=== PATIENT | female | born 1940 | race African-American/Black ===

== ENCOUNTER 2019-12-16 15:56 | Outpatient (CLI) | payer MEDICARE, SELFPAY ==
--- NOTE | ~2019-12-16 | US_ITS ---
EXAMINATION: US thyroid DATE: 12/16/2019 16:38 INDICATION: Thyroid nodule TECHNIQUE: Multiple ultrasound images of the thyroid were obtained. COMPARISON: None. FINDINGS: The right thyroid lobe measures 2.7 x 1.6 x 1.6 cm. The left thyroid lobe measures 3.3 x 1.6 x 1.0 c m. 4 mm wider than tall solid hypoechoic nodule with smooth margins and no echogenic foci (TI-RADS 4 , moderately suspicious , FNA if >=1.5 cm, annual followup is >1 cm) in the left thyroid lobe. Hetero geneous wider than tall predominantly solid isoechoic solid nodule with smooth margins and without ec hogenic foci at the (TI-RADS 3, mildly suspicious , FNA if >=2.5 cm, annual followup is >1.5 cm) junc tion of the right thyroid lobe and isthmus which measures 2.5 x 1.3 x 2.5 cm. There is normal echotex ture, echogenicity and vascular flow throughout the remainder of the thyroid gland. IMPRESSION: 1. 2.5 cm TI RADS 3 nodule in the right thyroid lobe for which ultrasound-guided biopsy would be albina mmended. Reviewed, dictated and finalized at location A. IMPRESSION: 1. 2.5 cm TI RADS 3 nodule in the right thyroid lobe for which ultrasound-guide d biopsy would be recommended.
== END 2019-12-16 15:57 | disposition home or self-care (01) ==
PROVIDERS: Visit Provider Otolaryngology
DX: E04.1 Nontoxic single thyroid nodule (principal)
CPT/HCPCS: 76536

== ENCOUNTER 2020-01-10 18:03 | Emergency (ER) | payer MEDICARE, SELFPAY ==
--- NOTE | ~2020-01-10 | CT_ITS ---
EXAMINATION: CT brain wo con DATE: 01/10/2020 18:59 INDICATION: Left face tingling. TECHNIQUE: Computed tomography (CT) of the head was performed without intravenous contrast. The mA wa s adjusted according to patient size. Iterative reconstruction technique was employed. The dose-lengt h product was 605.33 mGy-cm. COMPARISON: None FINDINGS: There is no intracranial hemorrhage, acute infarction, or abnormal intracranial mass lesion . There are scattered areas of low attenuation in the cerebral white matter. The ventricles are idalia l in size. 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 The mastoid air cells are normal. IMPRESSION: 1. Mild nonspecific cerebral white matter disease, which likely represents chronic small vessel ische catracho disease. Reviewed, dictated and finalized at location A. IMPRESSION: 1. 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
[2020-01-10 18:13] VITALS: BP 154/76; PULSE 98; RESP 18; TEMP 36.9; O2SAT 100
[2020-01-10 18:43] VITALS: BP 146/79; PULSE 95; RESP 20; O2SAT 100
--- NOTE | 2020-01-10 18:46 | ED.NEUROSD ---
HPI - Neuro Symptoms/Deficit General Chief Complaint: Neuro Symptoms/Deficit Stated Complaint: MY FACE LOOKS LIKE IM HAVING A STROKE Time Seen by Provider: 01/10/20 18:35 History of Present Illness HPI Narrative: Patient presents to the ED for facial tingling on the left since last night. When she first noticed that she thought there was some swelling over on the left cheek. She took an extra aspirin and an extra blood pressure pill. Her pressure was 165/99 at the time. She had a little bit of a headache. In the morning she had a little redness on the medial left lower eyelid. She thought it might be a stye, causing the swelling in her left cheek. She called a family member and had them look to see if it was asymmetric. He thought she had swelling. 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 She had no weakness, confusion, slurred speech, her or change in vision with the tingling of the left cheek. She has never had a stroke. She does have hypertension. 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 She does not smoke cigarettes, drink alcohol, or smoke marijuana. She has not been sick lately. She drove herself here. Onset (ago): day(s) Location: left face Related Data Home Medications Medication Instructions Recorded Confirmed timolol maleate 0.5 % eye drops 1 drop EACH EYE Q12H 05/14/19 11/14/19 tizanidine 2 mg capsule 2 mg PO TID PRN 05/14/19 11/14/19 amlodipine 10 mg PO DAILY 01/10/20 Allergies Allergy/AdvReac Type Severity Reaction Status Date / Time codeine Allergy Unknown Unknown Verified 01/10/20 18:43 Review of Systems Review of Systems: Narrative: CONSTITUTIONAL: Denies fever, chills, or sweats. EYES: Denies visual changes, redness, or discharge. ENT: Denies rhinorrhea, congestion, sore throat, or otalgia. CARDIOVASCULAR: Denies chest pain, palpitations, or edema. RESPIRATORY: Denies cough or dyspnea. GASTROINTESTINAL: Denies abdominal pain, nausea, vomiting, or diarrhea. GENITOURINARY: Denies dysuria or hematuria. SKIN: Denies rash or itching. MUSCULOSKELETAL: Denies back pain, joint pain, or myalgia. Chronic neck pain from C5-C6 lesion. NEUROLOGIC: Denies headache, numbness, or weakness. Just the tingling in the left cheek. All systems reviewed & are unremarkable except as noted in HPI and below PMFSH Past Medical History Medical History (Updated 01/10/20 @ 18:50 by Carolee Temple MD) Chest pain BARNETT (dyspnea on exertion) Dyslipidemia Essential hypertension Preop cardiovascular exam Surgical History Surgical History (Updated 01/10/20 @ 18:50 by Carolee Temple MD) H/O eye surgery H/O parotidectomy H/O tubal ligation H/O: hysterectomy History of left hip replacement History of right knee joint replacement Hx of tonsillectomy Social History Social History (Updated 01/10/20 @ 18:50 by Carolee Temple MD) Smoking status: Never smoker Alcohol intake: never Substance use: never Gender identity (if verbalized by the patient): Female Exam Narrative: Exam Narrative: GENERAL: Well-appearing, well-nourished, and in no acute distress. HEAD: Normocephalic, atraumatic. Facial asymmetry but no tenderness or redness, or weakness. Smile is symmetric. EYES: PERRLA and EOMI. right eye is glass and has exotropia. ENT: Nares clear, no rhinorrhea or epistaxis. Mucous membranes moist. NECK: Supple. CHEST: Clear to auscultation. No respiratory distress. HEART: Regular rate and rhythm. No murmur heard. Normal peripheral pulses. ABDOMEN: Soft, nontender, nondistended, normal active bowel sounds. EXTREMITIES: Normal range of motion. No edema. SKIN: Warm, dry, no rash. NEURO: No focal deficits. Alert and oriented x3. PSYCH: Normal mood and affect. Course Reevaluation(s) Reevaluation #1: Labs and CAT scan results with the patient. She is relieved not to have had a stroke. She would like pill for
[2020-01-10 19:31] LABS: Basophils Percent Auto 0.7 % (0.2-1.2); Eosinophils Absolute Auto 0.1 K/mm3 (0-0.3); Eosinophils Percent Auto 2.4 % (0-4.4); Hematocrit 43.1 % (37.0-47.0); Hemoglobin 14.7 g/dL (12.0-15.0); Immature Granulocyte Absolute 0.01 K/mm3 (0.00-0.031); Immature Granulocyte Percent A 0.2 % (0-0.5); Lymphocytes Absolute Auto 2.02 K/mm3 (0.9-3.2); Mean Corpuscular HGB Conc 34.1 g/dl (32-36); Mean Corpuscular Hemoglobin 30.1 pg (26-34); Mean Corpuscular Volume 88.1 fl (80-100); Mean Platelet Volume 9.3 fl (7.4-10.4); Monocytes Absolute Auto 0.5 K/mm3 (0.1-0.6); Monocytes Percent Auto 9.7 % (2.6-8.5); Neutrophils Absolute Auto 2.7 K/mm3 (1.3-6.7); Platelet Count Result 218 k/mm3 (150-375); Red Blood Count 4.89 M/mm3 (4.2-5.4); Red Cell Distribution Width 13.6 % (11.5-14.5); White Blood Count 5.5 K/mm3 (4.5-10.0)
[2020-01-10 19:41] LABS: Prothrombin Time 13.2 Seconds (11.1-14.7)
[2020-01-10 19:47] LABS: Alanine Aminotransferase 12 U/L (4-35); Albumin Level 4.2 g/dL (3.5-5.1); Alkaline Phosphatase 133 U/L (38-126); Aspartate Amino Transferase 21 U/L (14-36); Bilirubin,Total 0.3 mg/dL (0.2-1.3); Blood Urea Nitrogen 11 mg/dL (7-17); Calcium 9.3 mg/dL (8.4-10.2); Carbon Dioxide 25 mmol/L (22-30); Chloride 107 mmol/L (98-107); Estimated CRCL calculation 44 ml/min; Estimated Glomerular Filt Rate > 60; Glucose 102 mg/dL (65-105); Potassium 3.4 mmol/L (3.4-5.0); Sodium 138 mmol/L (137-145)
[2020-01-10] MEDS: ACETAMINOPHEN 325 MG TABLET 650 MG PO (20:29)
[2020-01-10 20:30] VITALS: BP 169/97; PULSE 96; RESP 16; O2SAT 100
[2020-01-10 21:01] VITALS: BP 169/97; PULSE 96; RESP 16; O2SAT 100
== END 2020-01-10 20:35 | disposition home or self-care (01) ==
PROVIDERS: Emergency Provider Emergency Medicine; PCP Emergency Medicine
DX: R20.2 Paresthesia of skin (principal); I10 Essential (primary) hypertension; Z96.642 Presence of left artificial hip joint; Z96.651 Presence of right artificial knee joint; E78.5 Hyperlipidemia, unspecified; R90.82 White matter disease, unspecified
CPT/HCPCS: 36415; 70450; 80053; 85025; 85610; 99284; A9270

== ENCOUNTER 2020-04-10 09:05 | Outpatient (CLI) | payer MEDICARE, SELFPAY ==
--- NOTE | ~2020-04-10 | US_ITS ---
EXAMINATION: US FNA w image guidance DATE: 04/10/2020 10:04 INDICATION: Thyroid nodule. TECHNIQUE: The procedure and its benefits, risks, and benefits were discussed with the patient. Risks specifical ly discussed included bleeding. The patient verbalized understanding of the risks and agreed to proce ed. The neck was prepped and draped in the usual sterile manner. 1% lidocaine was used for local ane sthesia. 5 passes were made with a 25G needle into the lesion. Appropriate needle location was docu mented with continuous sonographic guidance. There were no immediate complications. The patient unde rstood to call the ordering physician for results after a week and a half and verbalized that underst anding. FINDINGS: Grayscale ultrasound images demonstrate needles advanced into a 2.6 cm nodule in right thyroid isthmu s for biopsy. IMPRESSION: 1. Ultrasound-guided fine needle aspiration of a thyroid nodule. Reviewed, dictated and finalized at location A.
== END 2020-04-10 09:06 | disposition home or self-care (01) ==
PROVIDERS: PCP Emergency Medicine; Visit Provider Otolaryngology
DX: E04.1 Nontoxic single thyroid nodule (principal)
CPT/HCPCS: 10005; 88173; 88305

== ENCOUNTER 2022-07-27 07:20 | Outpatient (CLI) | payer MEDICARE, SELFPAY ==
--- NOTE | ~2022-07-27 | NM_ITS ---
EXAMINATION: NM damion stress w perfusion DATE: 07/27/2022 13:26 INDICATION: Chest pain. TECHNIQUE: Rest images were obtained following intravenous administration of 10 mCi Tc99m tetrofosmin (Myoview). The patient was infused intravenously with Lexiscan (regadenoson). Then, 31.7 mCi Tc99m t etrofosmin (Myoview) was administered intravenously, and stress images were obtained. Data was recons tructed into short axis and horizontal and vertical long axis SPECT images. Gated SPECT images were a lso obtained. COMPARISON: Myocardial perfusion imaging 07/07/17 FINDINGS: There is no definite reversible or fixed perfusion abnormality to suggest ischemia or infar ction. There is no segmental wall motion abnormality. Left ventricular ejection fraction measures > 70%. IMPRESSION: 1. No definite ischemia or infarct. 2. Normal left ventricular ejection fraction measuring >70%. Reviewed, dictated and finalized at location A. R SCRAPER
--- NOTE | 2022-07-27 11:00 | ECHO_ITS ---
Patient Info Name: Shania Mcleod Age: 82 years : 1940 Gender: Female Ht: 62 in Wt: 140 lbs BSA: 1.68 m2 HR: 78 bpm BP: 174 / 104 mmHg Technical Quality: Fair Exam Date: 07/27/2022 8:21 AM Exam Location: [facility] Pulmonary Patient Status: Outpatient Admit Date: 07/27/2022 Staff Ordering Physician: Titi Reynoso DO Homeland Security Program Specialist: Dmitriy Lockett RDCS, RT Attending Provider: Titi Reynoso DO Exam Type: CA echo doppler color flow Study Info Complete two-dimensional, color flow and Doppler transthoracic echocardiogram is performed. Strain analysis performed. Summary 1. Complete two-dimensional, color flow and Doppler transthoracic echocardiogram is performed. 2. Left ventricular chamber dimension is normal. 3. Left ventricular systolic function is normal, estimated at 60-65%. 4. There is mild concentric increased left ventricular wall thickness. 5. The left ventricular diastolic function is grade I diastolic dysfunction. 6. E/e' 16 is elevated. 7. Global longitudinal strain is normal at -18.8%. 8. There is moderate aortic valve sclerosis. 9. The mitral valve has moderately calcified annulus. Left Ventricle E/e' 16 is elevated. Global longitudinal strain is normal at -18.8%. Left ventricular chamber dimension is normal. Left ventricular systolic function is normal, estimated at 60-65%. There is mild concentric increased left ventricular wall thickness. The left ventricular diastolic function is grade I diastolic dysfunction. Right Ventricle Right ventricular systolic function is normal and with normal TAPSE 1.8 cm. Right ventricular chamber dimension is normal. Left Atria Left atrial chamber dimension is normal. Right Atria Right atrial chamber dimension is normal. Aortic Valve The aortic valve is trileaflet. There is moderate aortic valve sclerosis. There is no aortic valve stenosis. There is no aortic valve regurgitation. Pulmonic Valve There is no pulmonic regurgitation. Mitral Valve The mitral valve has moderately calcified annulus. There is no mitral valve stenosis. There is no mitral valve regurgitation. Tricuspid Valve There is no tricuspid valve regurgitation. Pericardium/Pleural There is no pericardial effusion. Inferior Vena Cava Normal inferior vena cava with >50% collapse upon inspiration consistent with normal right atrial pressure, 5 mmHg. Aorta The aortic root size at the sinus of Valsalva is normal. Left Ventricular Outflow Tract Name Value Normal LVOT Doppler LVOT Peak Gradient 4 mmHg LVOT Mean Gradient 2 mmHg LVOT VTI 23 cm LVOT VTI/AV VTI Ratio 0.9 Mitral Valve Name Value Normal MV Doppler MV Decel Lassen 280 cm/s2 MV PHT 91 ms MV Area (PHT) 2.4 cm2 4.0-5.0 MV Diastolic Function
--- NOTE | 2022-07-27 11:14 | EST_ITS ---
Patient Info Name: Shania Mcleod Age: 82 years : 1940 Gender: Female Ht: 62 in Wt: 140 lbs BSA: 1.68 m2 HR: 77 bpm BP: 169 / 71 mmHg Heart Rhythm: Sinus Rhythm Exam Date: 07/27/2022 9:54 AM Exam Location: [facility] Stress Patient Status: Outpatient Admit Date: 07/27/2022 Staff Ordering Physician: Titi Reynoso DO Attending Provider: Titi Reynoso DO Exercise Technologist: Nelida Aguilar CT Exercise Physician: Titi Reynoso DO Exam Type: CA stress damion w NM Study Info Indications R06.09 - Other forms of dyspnea A regadenoson stress test was performed. Summary 1. 1. Negative lexiscan stress test for ischemic ST changes by ECG criteria. 2. 2. Baseline hypertension. 3. 3. Nuclear scan to follow and will be reported separately. Please correlate with it. 4. 4. Patient informed of the above results. Protocol: Lexiscan Rest HR: 77 bpm Peak HR: 110 bpm Rest Sys BP: 169 mmHg Peak Sys BP: 199 mmHg Max Pred HR: 138 bpm % Max Pred HR: 80 % Target HR: 117 bpm Max RPP: 21,890 bpm*mmHg Termination Reason: Completed protocol Cardiac Symptoms: Lightheadedness, Shortness of breath Rest Paredes BP: 91 mmHg Peak Paredes BP: 81 mmHg Total Dose: 0.4 mg Resting ECG Sinus rhythm. Normal sinus rhythm - normal ECG. Stress ECG No ST changes. Arrhythmias None. Report Signatures
== END 2022-07-27 07:21 | disposition home or self-care (01) ==
LOC: ANHCARD 07:21
PROVIDERS: Visit Provider Internal Medicine Cardiovascular Disease
DX: R07.9 Chest pain, unspecified (principal); R06.09 Other forms of dyspnea; I10 Essential (primary) hypertension; I51.9 Heart disease, unspecified; I35.8 Other nonrheumatic aortic valve disorders; I34.81 Nonrheumatic mitral (valve) annulus calcification
CPT/HCPCS: 78452; 93017; 93306; A9502; J2785

== ENCOUNTER 2023-01-10 07:42 | Outpatient (CLI) | payer MEDICARE, SELFPAY ==
[2023-01-10 08:37] LABS: Alanine Aminotransferase 12 U/L (6-35); Alkaline Phosphatase 76 U/L (38-126); Anion Gap 5 mmol/L (8-16); Aspartate Amino Transferase 20 U/L (14-36); Bilirubin,Total 0.5 mg/dL (0.2-1.3); Blood Urea Nitrogen 11 mg/dL (7-17); Calcium 8.9 mg/dL (8.4-10.2); Carbon Dioxide 30 mmol/L (22-30); Chloride 106 mmol/L (98-107); Cholesterol 156 mg/dL (0-200); Estimated Glomerular Filt Rate > 60; Glucose 99 mg/dL (65-110); HDL Direct 45 mg/dL; Potassium 3.1 mmol/L (3.4-5.0); Sodium 141 mmol/L (137-145); Triglycerides 76 mg/dL (<150)
[2023-01-10 08:48] LABS: LDL Cholesterol Direct 82 mg/dL
== END 2023-01-10 07:43 | disposition home or self-care (01) ==
PROVIDERS: Visit Provider Internal Medicine Cardiovascular Disease
DX: E78.5 Hyperlipidemia, unspecified (principal)
CPT/HCPCS: 36415; 80053; 80061

== ENCOUNTER 2023-05-25 13:05 | Inpatient (IN) | payer MEDICARE, SELFPAY ==
[2023-05-25] VITALS (17 sets, daily range): BP systolic 133–175; BP diastolic 64–94; PULSE 70–95; RESP 13–20; TEMP 36.5–36.8; O2SAT 97–100; BMI 25.6
--- NOTE | ~2023-05-25 | XR_ITS ---
EXAMINATION: XR chest 1V portable DATE: 05/25/2023 14:30 INDICATION: Weakness. TECHNIQUE: A single frontal view of the chest was obtained. COMPARISON: Chest 2 views 08/28/2015 FINDINGS: There is no pneumonia, pleural effusion, or pneumothorax. The heart size is normal. IMPRESSION: 1. No acute cardiopulmonary disease. Reviewed, dictated and finalized at location A. RTMENTAL SHIPPING CLERK
--- NOTE | ~2023-05-25 | CT_ITS ---
EXAMINATION: CT abdomen pelvis w con DATE: 05/27/2023 17:58 INDICATION: Right colon mass. TECHNIQUE: Computed tomography (CT) of the abdomen and pelvis was performed with 100 cc Omnipaque 350 intravenous contrast. The dose-length product was 286.52 mGy-cm. Automated exposure control and iter ative reconstruction technique were employed. COMPARISON: None. FINDINGS: There is bibasilar atelectasis/scarring. Heart size normal. No significant pleural or peric ardial effusion. The liver, spleen, pancreas, adrenal glands and kidneys are unremarkable. Gallbladde r is present. There is significant irregular thickening of the cecum, suspicious for known malignancy . There is a left hip arthroplasty. There is osteoarthritis of the right hip. There is scoliosis. Sev ere lumbar spondylosis. IMPRESSION: 1. Significant irregular thickening of the cecum, suspicious for known colon cancer. No evidence for metastatic disease. 2: Bibasilar atelectasis/scarring. Reviewed, dictated and finalized at location A. ERY WORKER IMPRESSION: 1. Significant irregular thickening of the cecum, suspicious for known colon ca ncer. No evidence for metastatic disease. 2: Bibasilar atelectasis/scarring.
--- NOTE | ~2023-05-25 | CT_ITS ---
EXAMINATION: CT brain wo con DATE: 06/01/2023 15:24 INDICATION: Dizziness and weakness TECHNIQUE: Computed tomography (CT) of the head was performed without intravenous contrast. Sagittal and coronal reconstructions were performed. The mA was adjusted according to patient size. Iterative reconstruction technique was employed. The dose-length product was 605.33 mGy-cm. COMPARISON: head CT dated 01/10/2020 FINDINGS: No acute intracranial hemorrhage, acute infarction or abnormal extra axial fluid collection. There is mild scattered white matter hypoattenuation consistent with chronic small vessel ischemic disease. S ymmetric prominence of the sulci consistent with mild age-appropriate diffuse cerebral volume loss. V entricles are normal and symmetric. No mass/mass effect. Changes of bilateral intraocular lens replac ement. The orbits, paranasal sinuses and mastoid air cells are normal. IMPRESSION: 1. No acute intracranial process. 2. Age-related changes including mild diffuse volume loss and mild scattered white matter hypoattenua tion consistent with chronic small vessel ischemic disease. Reviewed, dictated and finalized at location A. [employer]GER IMPRESSION: 1. No acute intracranial process. 2. Age-related changes including mild diffuse volume loss and mild scattered wh ite matter hypoattenuation consistent with chronic small vessel ischemic diseas e.
--- NOTE | 2023-05-25 13:12 | ECG_ITS ---
Measurements Intervals [place] Rate: 74 P: 23 ID: [id number] QRS: 1 QRSD: 90 T: 18 QT: 375 QTc: 417 Interpretive Statements SINUS RHYTHM CONSIDER INFERIOR INFARCT, AGE INDETERMINATE BASELINE ARTIFACT- I, III, AVL, AVF ABNORMAL ECG NO PREVIOUS ECG AVAILABLE FOR COMPARISON Electronically Signed On 05-25-2023 14:30:35 SENIOR FINANCIAL by Titi Reynoso D.O.
[2023-05-25 13:21] LABS: Basophils Percent Auto 0.8 % (0.2-1.2); Eosinophils Absolute Auto 0.2 K/mm3 (0-0.3); Immature Granulocyte Absolute 0.01 K/mm3 (0.00-0.031); Immature Granulocyte Percent A 0.2 % (0-0.5); Lymphocytes Absolute Auto 1.77 K/mm3 (0.9-3.2); Lymphocytes Percent Auto 35.5 % (18.3-44.2); Mean Corpuscular HGB Conc 25.5 g/dl (32-36); Mean Corpuscular Hemoglobin 16.3 pg (26-34); Mean Corpuscular Volume 63.8 fl (80-100); Mean Platelet Volume 9.7 fl (7.4-10.4); Monocytes Absolute Auto 0.8 K/mm3 (0.1-0.6); Monocytes Percent Auto 15.1 % (2.6-8.5); Neutrophils Absolute Auto 2.3 K/mm3 (1.3-6.7); Neutrophils Percent Auto 45.4 % (45.5-73.1); Platelet Count Result 396 k/mm3 (150-375); Red Blood Count 3.26 M/mm3 (4.2-5.4); Red Cell Distribution Width 21.4 % (11.5-14.5)
[2023-05-25 13:30] LABS: Alanine Aminotransferase 10 U/L (6-35); Albumin Level 3.7 g/dL (3.5-5.1); Alkaline Phosphatase 66 U/L (38-126); Anion Gap 7 mmol/L (8-16); Aspartate Amino Transferase 28 U/L (14-36); Bilirubin,Total 0.5 mg/dL (0.2-1.3); Blood Urea Nitrogen 8 mg/dL (7-17); Carbon Dioxide 24 mmol/L (22-30); Chloride 108 mmol/L (98-107); Estimated CRCL calculation 35 ml/min; Estimated Glomerular Filt Rate > 60; Glucose 124 mg/dL (65-110); Potassium 3.6 mmol/L (3.4-5.0); Sodium 139 mmol/L (137-145)
[2023-05-25 13:36] LABS: Hematocrit 20.8 % (37.0-47.0)
[2023-05-25 13:40] LABS: Hemoglobin 5.3 g/dL (12.0-15.0)
[2023-05-25 13:45] LABS: Anisocytosis 1+ (NORMAL); Helmet Cells 1+ (NORMAL); Poikilocytosis 2+ (NORMAL)
[2023-05-25 13:46] LABS: Hypochromasia 3+ (NORMAL); Ovalocytes 1+ (NORMAL)
[2023-05-25 13:48] LABS: Schistocytes 2+ (NORMAL)
[2023-05-25 13:53] LABS: Target Cells 1+ (NORMAL)
[2023-05-25 14:36] LABS: INR 1.1; Partial Thromboplastin Time 21.6 SECONDS (22.3-36.8); Prothrombin Time 14.5 Seconds (11.1-14.7)
--- NOTE | 2023-05-25 14:57 | ED.DIZZY ---
HPI - Dizziness General Chief Complaint: Dizziness Stated Complaint: dizzy when woke up Time Seen by Provider: 05/25/23 13:52 Source: patient, EMS, RN notes reviewed and old records reviewed Mode of arrival: EMS Limitations: no limitations History of Present Illness HPI Narrative: This is an 83 year old female with history of chronic vertigo, hypertension who presents for evaluation of multiple complaints. Patient states she felt like she was having stroke, seizure and heart attack . She reports prior to arrival she developed sudden only of chest tightness, tingling all over and head fogginess. She also reports having lethargy at that time. This last 1 hour and her symptoms have now resolved. She also reports having similar episode on giving . Her children were present for that episode so they placed her in her bed and her symptoms resolved. She denies any chest pain or shortness of breath in between these episodes. She also reports chronic issues with vertigo. She denies history of anemia. She has noticed that stools are intermittently dark. Her last bowel movement was yesterday. She denies any obvious blood loss. Related Data Home Medications Medication Instructions Recorded Confirmed timolol maleate 0.5 % eye drops 1 drop RIGHT EYE Q12H 05/14/19 05/25/23 tizanidine 2 mg capsule 2 mg PO TID PRN Muscle Pain 05/14/19 05/25/23 Allergies Allergy/AdvReac Type Severity Reaction Status Date / Time codeine Allergy Unknown Unknown Verified 02/21/23 08:53 Review of Systems Constitutional: Constitutional: Reports weakness Cardiovascular: Cardiovascular: Reports chest pain, Denies syncope, Denies rapid heart rate, Denies irregular heart rhythm, Denies leg edema and Denies dyspnea Respiratory: Respiratory: Denies chest congestion, Denies hemoptysis, Denies excessive phlegm production and Denies dyspnea Gastrointestinal: Gastrointestinal: Denies abdominal pain, Denies hematochezia, Denies diarrhea and Denies vomiting Genitourinary: Genitourinary: Denies hematuria and Denies dysuria Musculoskeletal: Musculoskeletal: Denies joint swelling, Denies loss of height and Denies muscle weakness Neurologic: Denies syncope, Denies focal weakness, Reports numbness and Reports weakness PMFSH Past Medical History Medical History Chest pain BARNETT (dyspnea on exertion) Dyslipidemia Essential hypertension Impacted cerumen of both ears Preop cardiovascular exam Surgical History Surgical History H/O eye surgery H/O parotidectomy H/O tubal ligation H/O: hysterectomy History of left hip replacement History of right knee joint replacement Hx of tonsillectomy Social History Social History Social History: Caffeine-soda Smoking status: Never smoker Alcohol intake: never Substance use: never Substance use type: does not use Lack of Transportation: No Lack of Food: Never True Current Housing: I Have Housing Concerned About Future Housing: No Difficulty Paying Gas/Electric Bills: No Difficulty Paying for Meds: No Currently Unemployed: No Education: Master's Degree or Higher Difficulty w/ Childcare or Family Care: No Gender identity (if verbalized by the patient): Female Spiritual care concerns: No Exam Const: General: no acute distress and alert Nutritional Appearance: well nourished Orientation/consciousness: patient oriented x3 Limitations: no limitations HENMT: Head: normal to inspection Eyes: EOM: EOMs intact bilaterally Chest: Chest palpation & inspection: normal inspection of the chest Resp: Effort & Inspection: normal respiratory effort Auscultation: clear to auscultation bilaterally Cardio: Rate: regular rate Rhythm: regular rhythm Heart sounds: no murmurs GI: GI Palp: Yes Soft to palpation, No Tenderness t
[2023-05-25 15:09] LABS: Troponin I < 0.012 ng/mL (0.000-0.034)
[2023-05-25] MEDS: SODIUM CHLORIDE 0.9% IV 250 ML 30 ML IV CONT (15:09)
[2023-05-25 15:40] LABS: Iron 14 ug/dL (37-170)
[2023-05-25 15:49] LABS: Percent Iron Saturation 3 % (20-50)
[2023-05-25 16:04] LABS: Folic Acid 9.9 ng/mL (2.76->20)
[2023-05-25] MEDS: PANTOPRAZOLE SODIUM IV 40 MG VIAL IV PUSH (17:14)
--- NOTE | 2023-05-25 20:41 | PM.IMHP ---
H&P: HPI History of Present Illness Date/Time: 05/25/23 20:41 Chief Complaint: Dizziness. Narrative: This is an 83-year-old female with past medical history significant for hypertension, patient presents to the emergency room due to episode of dizziness, lightheadedness, vertigo, near syncope, dizzy quit Librium. For the last several days however have gotten worse over the course of the last week or so patient called 911 and was brought to the emergency room preliminary workup was significant for hemoglobin of 5. Patient denies any melena, bright red blood per rectum, no coffee-ground emesis, no hematemesis, no stool changes, no weight loss. Patient is been placed in observation for blood transfusion for the evaluation management and treatment. EXAMINATION: XR chest 1V portable DATE: 05/25/2023 14:30 INDICATION: Weakness. TECHNIQUE: A single frontal view of the chest was obtained. COMPARISON: Chest 2 views 08/28/2015 FINDINGS: There is no pneumonia, pleural effusion, or pneumothorax. The heart size is normal. IMPRESSION: 1. No acute cardiopulmonary disease. Review of Systems Review of Systems: Dizziness, fatigue, shortness of breath. Constitutional: Constitutional: Denies chills, Reports fatigue, Denies fever(s), Denies frequent falls, Reports lethargy, Denies malaise, Denies night sweats, Denies poor appetite and Denies weight loss Eyes: Eyes: Denies change in vision ENT: Denies dysphagia, Reports vertigo, Reports dizziness and Denies odynophagia Cardiovascular: Cardiovascular: Denies chest pain, Denies leg edema, Reports lightheadedness, Denies radiating jaw, neck or arm pain, Denies palpitations and Reports dyspnea on exertion Respiratory: Respiratory: Denies cough and Denies excessive phlegm production Gastrointestinal: Gastrointestinal: Denies abdominal pain, Denies melena, Denies hematochezia, Denies change in stool character, Denies dyspepsia, Denies heartburn, Denies nausea, Denies vomiting and Denies hematemesis Genitourinary: Genitourinary: Denies dysuria Musculoskeletal: Musculoskeletal: Denies back pain Integumentary/Breasts: Skin/Breast: Denies rash Neurologic: Denies focal weakness and Denies Sensory deficit (Neuro) Psychiatric: Psychiatric: Reports no additional psychiatric complaints and Reports as per HPI Endocrine: Endocrine: Denies cold intolerance, Denies fatigue, Denies flushing, Denies heat intolerance, Denies polyphagia, Denies polydipsia and Denies palpitations Hematologic/Lymphatic: Hematologic/Lymphatic: Reports no additional hematologic/lymphatic complaints and Reports as per HPI Allergic/Immunologic: Allergic/Immunologic: Reports no additional allergic/immunologic complaints and Reports as per HPI PMFSH Past Medical History Medical History Chest pain BARNETT (dyspnea on exertion) Dyslipidemia Essential hypertension Impacted cerumen of both ears Preop cardiovascular exam Surgical History Surgical History H/O eye surgery H/O parotidectomy H/O tubal ligation H/O: hysterectomy History of left hip replacement History of right knee joint replacement Hx of tonsillectomy Social History Social History Social History: Caffeine-soda Smoking status: Never smoker Alcohol intake: never Substance use: never Substance use type: does not use Lack of Transportation: No Lack of Food: Never True Current Housing: I Have Housing Concerned About Future Housing: No Difficulty Paying Gas/Electric Bills: No Difficulty Paying for Meds: No Currently Unemployed: No Education: Master's Degree or Higher Difficulty w/ Childcare or Family Care: No Gender identity (if verbalized by the patient): Female Spiritual care concerns: No Meds Home Medications and Allergies Home Medications Medica
[2023-05-25 20:57] LABS: Hematocrit 30.8 % (37.0-47.0); Hemoglobin 9.1 g/dL (12.0-15.0)
[2023-05-26] VITALS (14 sets, daily range): BP systolic 133–188; BP diastolic 53–88; PULSE 74–99; RESP 16–24; TEMP 36.1–36.8; O2SAT 97–100
[2023-05-26 06:06] LABS: Basophils Absolute Auto 0.1 K/mm3 (0.0-0.1); Eosinophils Absolute Auto 0.1 K/mm3 (0-0.3); Eosinophils Percent Auto 2.2 % (0-4.4); Hematocrit 31.6 % (37.0-47.0); Hemoglobin 9.4 g/dL (12.0-15.0); Immature Granulocyte Absolute 0.02 K/mm3 (0.00-0.031); Immature Granulocyte Percent A 0.3 % (0-0.5); Lymphocytes Absolute Auto 1.73 K/mm3 (0.9-3.2); Lymphocytes Percent Auto 29.2 % (18.3-44.2); Mean Corpuscular HGB Conc 29.7 g/dl (32-36); Mean Corpuscular Hemoglobin 21.5 pg (26-34); Mean Corpuscular Volume 72.3 fl (80-100); Mean Platelet Volume 9.3 fl (7.4-10.4); Monocytes Absolute Auto 0.8 K/mm3 (0.1-0.6); Monocytes Percent Auto 13.2 % (2.6-8.5); Neutrophils Absolute Auto 3.2 K/mm3 (1.3-6.7); Neutrophils Percent Auto 54.1 % (45.5-73.1); Platelet Count Result 318 k/mm3 (150-375); Red Blood Count 4.37 M/mm3 (4.2-5.4); Red Cell Distribution Width 27.7 % (11.5-14.5); White Blood Count 5.9 K/mm3 (4.5-10.0)
[2023-05-26 06:23] LABS: Alanine Aminotransferase 10 U/L (6-35); Albumin Level 3.5 g/dL (3.5-5.1); Alkaline Phosphatase 70 U/L (38-126); Anion Gap 10 mmol/L (8-16); Aspartate Amino Transferase 20 U/L (14-36); Bilirubin,Total 1.6 mg/dL (0.2-1.3); Blood Urea Nitrogen 6 mg/dL (7-17); Carbon Dioxide 19 mmol/L (22-30); Chloride 111 mmol/L (98-107); Estimated CRCL calculation 40 ml/min; Estimated Glomerular Filt Rate > 60; Glucose 88 mg/dL (65-110); Sodium 140 mmol/L (137-145)
[2023-05-26 06:46] LABS: Hypochromasia 3+ (NORMAL); Ovalocytes 2+ (NORMAL); Platelet Estimate Adequate (Adequate); Target Cells 1+ (NORMAL); Tear Drop Cells 1+ (NORMAL)
[2023-05-26 06:47] LABS: Schistocytes Rare (NORMAL)
[2023-05-26] MEDS: TIMOLOL MALEATE 0.5% OP SOLN 5 ML BOTTLE 1 DROP RIGHT EYE ×2 (08:48→20:34)
[2023-05-26] MEDS: PANTOPRAZOLE SODIUM IV 40 MG VIAL IV PUSH ×2 (08:50→16:34)
--- NOTE | 2023-05-26 09:36 | PM.IMPN ---
Progress Note: A&P Assessment and Plan (1) Symptomatic anemia: Code(s): D64.9 - Anemia, unspecified Status: Acute Assessment and Plan: Transfuse hemoglobin less than 7, 2 units given 05/25 Hemoglobin 9.4 today Hypochromic microcytic anemia GI consult appreciated, taken to EGD 05/26 (2) Fecal occult blood test positive: Code(s): R19.5 - Other fecal abnormalities Status: Acute Assessment and Plan: GI consult (3) Essential hypertension: Code(s): I10 - Essential (primary) hypertension Status: Acute Assessment and Plan: Holding home meds Restarted as needed Blood pressures reviewed 05/26 Plan DVT prophylaxis with SCDs GI prophylaxis with PPI Code status full code Subjective Date/time seen: 05/26/23 09:36 Interval history: 83-year-old female with history of hypertension, hyperlipidemia is presenting with lightheadedness and dizziness and found to have a hemoglobin of 5 and is currently being worked up for anemia. Status post 2 units packed red blood cells 05/25. Hemoglobin 9.4 after transfusion 05/26. Patient taken to EGD Review of Systems Review of Systems: in EGD Exam Narrative: per GI, in EGD Objective Data Vital Signs Vital Signs: Vital Signs - 24 hr 05/25/23 13:06 05/25/23 13:30 05/25/23 13:31 Temperature 97.8 F Pulse Rate 70 78 80 Respiratory Rate 18 Blood Pressure 133/70 152/72 H Pulse Oximetry 97 Oxygen Delivery Room Air 05/25/23 13:34 05/25/23 13:53 05/25/23 14:00 Temperature Pulse Rate 92 83 85 Respiratory Rate 15 15 Blood Pressure 158/71 H Pulse Oximetry 100 Oxygen Delivery 05/25/23 14:01 05/25/23 14:33 05/25/23 15:07 Temperature 97.7 F Pulse Rate 84 91 95 Respiratory Rate 20 17 20 Blood Pressure 142/74 H 162/77 H Pulse Oximetry 100 100 100 Oxygen Delivery 05/25/23 15:23 05/25/23 16:23 05/25/23 17:14 Temperature 98.3 F 97.8 F 98 F Pulse Rate 92 94 89 Respiratory Rate 13 16 20 Blood Pressure 164/82 H 165/94 H 138/64 Pulse Oximetry 100 98 98 Oxygen Delivery 05/25/23 17:18 05/25/23 17:35 05/25/23 17:35 Temperature 98 F 98.1 F 98.1 F Pulse Rate 89 87 87 Respiratory Rate 18 19 19 Blood Pressure 164/85 H 161/83 H 161/83 H Pulse Oximetry 100 100 100 Oxygen Delivery 05/25/23 18:04 05/25/23 21:23 05/25/23 20:00 Temperature 98 F 97.7 F Pulse Rate 88 89 89 Respiratory Rate 18 18 Blood Pressure 175/88 H 158/71 H Pulse Oximetry 98 100 Oxygen Delivery 05/26/23 00:00 05/25/23 20:00 05/26/23 04:00 Temperature Pulse Rate 79 79 82 Respiratory Rate 18 Blood Pressure Pulse Oximetry 100 Oxygen Delivery Room Air 05/26/23 04:40 05/26/23 09:00 Temperature 97.4 F L Pulse Rate 74 Respiratory Rate 18 Blood Pressure 133/74 Pulse Oximetry 98 Oxygen Delivery Room Air Intake/Output Intake/Output: Intake & Output 05/23/23 05/24/23 05/25/23 05/26/23 23:59 23:59 23:59 23:59 Intake Total 800 390 Output Total 300 Balance 800 90 Meds/Results Medications: Active Medications Generic Name Dose Route Start Last Admin Trade Name Freq PRN Reason Stop Dose Admin Ondansetron HCl 4 mg 05/25/23 15:29 Ondansetron Inj 4 Mg/2 Ml Vial IV PUSH Q4H PRN Nausea Pantoprazole Sodium 40 mg 05/25/23 17:00 05/26/23 08:50 Pantoprazole Sodium Iv 40 Mg Vial IV PUSH 40 mg BID ZINA Administration Timolol Maleate 1 drop 05/26/23 09:00 05/26/23 08:48 Timolol Maleate 0.5% Op Soln 5 Ml Bottle RIGHT EYE 1 drop Q12HR ZINA Administration Tramadol HCl 50 mg 05/26/23 01:36 Tramadol Hcl (*Crx) 50 Mg Tablet PO Q6H PRN pain Radiology Results: ITS Impressions Chest X-Ray 05/25/23 14:36 IMPRESSION: 1. No acute cardiopulmonary disease. Labs Labs: Laboratory Results - last 24 hr 05/25/23 05/25/23 05/25/23 13:13 13:14 13:51 WBC 5.0 RBC 3.26 L
--- NOTE | 2023-05-26 12:49 | WPDGICN ---
Assessment and Plan Assessment and plan (1) Fecal occult blood test positive: Code(s): R19.5 - Other fecal abnormalities Status: Acute Assessment and Plan: Stool occult blood appears to account for rather significant microcytic anemia. GI blood loss suspected. (2) RIMMA (iron deficiency anemia): Code(s): D50.9 - Iron deficiency anemia, unspecified Status: Acute Assessment and Plan: Patient with iron deficiency anemia. Iron indices are low. Patient has microcytic anemia. She was symptomatic when she presented. Stool Hemoccult found to be positive. Plan to check iron studies. An EGD will be performed today because of dark stools by history. If this fails to identify source of blood loss then colonoscopy may need to be performed subsequently. GI Consult Note Consult date/time: 05/26/23 12:49 Reason for consult: Microcytic anemia HPI: Shania Mcleod is a 83 year old female I am asked to see at the request of the hospitalist service because of anemia. Patient presented to the hospital with various symptoms including chest pain dizziness. Patient was found to have rather profound microcytic anemia. She states some of these symptoms have improved after transfusion. She denies any obvious bleeding. She does report in retrospect the stools were somewhat dark is for several days recently. Patient denies abdominal pain. She denies any recent history of ulceration or peptic ulcer disease. Family history is noncontributory. Review of Systems Review of Systems: Review of systems noncontributory. [facility] Past Medical History Medical History Chest pain BARNETT (dyspnea on exertion) Dyslipidemia Essential hypertension Impacted cerumen of both ears Preop cardiovascular exam Surgical History Surgical History H/O eye surgery H/O parotidectomy H/O tubal ligation H/O: hysterectomy History of left hip replacement History of right knee joint replacement Hx of tonsillectomy Social History Social History Social History: Caffeine-soda Smoking status: Never smoker Alcohol intake: never Substance use: never Substance use type: does not use Lack of Transportation: No Lack of Food: Never True Current Housing: I Have Housing Concerned About Future Housing: No Difficulty Paying Gas/Electric Bills: No Difficulty Paying for Meds: No Currently Unemployed: No Education: Master's Degree or Higher Difficulty w/ Childcare or Family Care: No Gender identity (if verbalized by the patient): Female Spiritual care concerns: No Meds Home Medications and Allergies Home Medications Medication Instructions Recorded Confirmed Type timolol maleate 0.5 % eye drops 1 drop RIGHT EYE Q12H 05/14/19 05/25/23 History tizanidine 2 mg capsule 2 mg PO TID PRN Muscle Pain 05/14/19 05/25/23 History tramadol 50 mg tablet 50 mg PO Q6H PRN pain #20 tabs 07/14/19 05/25/23 Rx hydrochlorothiazide 25 mg tablet See Rx Instructions .Route 03/13/22 05/25/23 Rx .COMPLEX #90 tabs carvedilol 6.25 mg tablet See Rx Instructions .Route 07/08/22 05/25/23 Rx .COMPLEX #60 tabs losartan 25 mg tablet 25 mg PO DAILY #30 tabs 07/28/22 05/25/23 Rx Allergies Allergy/AdvReac Type Severity Reaction Status Date / Time codeine Allergy Unknown Unknown Verified 02/21/23 08:53 Vital Signs Vital Signs - 24 hr 05/25/23 13:06 05/25/23 13:30 05/25/23 13:31 Temperature 97.8 F Pulse Rate 70 78 80 Respiratory Rate 18 Blood Pressure 133/70 152/72 H Pulse Oximetry 97 Oxygen Delivery Room Air 05/25/23 13:34 05/25/23 13:53 05/25/23 14:00 Temperature Pulse Rate 92 83 85 Respiratory Rate 15 15 Blood Pressure 158/71 H Pulse Oximetry 100 Oxygen Delivery 05/25/23 14:01 05/25/23 14:33 05/25/23 15:0
[2023-05-26] MEDS: LACTATED RINGERS 1,000 ML 150 ML IV CONT (13:13)
--- NOTE | 2023-05-26 13:36 | PC.NURSE ---
On 05/26/23, the student, [Angela Munoz], provided care and completed [facility] documentation on this patient. I have reviewed the student's documentation and agree with the findings.
--- NOTE | 2023-05-26 13:52 | WPDANESEPPF ---
Anes - Initial Pre Proc Eval Procedure: Operation Date: 05/26/23 15:00 Proposed Procedures p Esophagogastroduodenoscopy - Dilan Land MD Date/Time: 05/26/23 13:52 Surgeon: Marlen Campos MD Pre Op Diagnosis: anemia due t blood loss Patient Data Age: 83 Gender: F Height: 1.55 m Weight: 61.5 kg Last Vital Signs Temp 97 F L 05/26/23 13:16 Pulse 81 05/26/23 13:16 Resp 18 05/26/23 13:16 BP 181/84 H 05/26/23 13:16 Pulse Ox 100 05/26/23 13:16 O2 Del Method Room Air 05/26/23 13:16 Allergies Allergy/AdvReac Type Severity Reaction Status Date / Time codeine Allergy Unknown Unknown Verified 05/26/23 13:13 Home Medications Medication Instructions Recorded Confirmed Type timolol maleate 0.5 % eye drops 1 drop RIGHT EYE Q12H 05/14/19 05/25/23 History tizanidine 2 mg capsule 2 mg PO TID PRN Muscle Pain 05/14/19 05/25/23 History tramadol 50 mg tablet 50 mg PO Q6H PRN pain #20 tabs 07/14/19 05/25/23 Rx hydrochlorothiazide 25 mg tablet See Rx Instructions .Route 03/13/22 05/25/23 Rx .COMPLEX #90 tabs carvedilol 6.25 mg tablet See Rx Instructions .Route 07/08/22 05/25/23 Rx .COMPLEX #60 tabs losartan 25 mg tablet 25 mg PO DAILY #30 tabs 07/28/22 05/25/23 Rx Laboratory Tests 05/25/23 05/25/23 05/25/23 13:13 13:14 13:51 WBC RBC Hgb Hct MCV MCH MCHC RDW Plt Count MPV Immature Gran % (Auto) Neut % (Auto) Lymph % (Auto) [place] % (Auto) Eos % (Auto) Baso % (Auto) Lymph # (Auto) [place] # (Auto) Eos # (Auto) Baso # (Auto) Abs Immat Gran (auto) Absolute Neuts (auto) Absolute Nucleated RBC Nucleated RBC % Platelet Estimate Slightly increased (Adequate) Hypochromasia 3+ (NORMAL) Poikilocytosis 2+ (NORMAL) Anisocytosis 1+ (NORMAL) Sickle Cells (NORMAL) Target Cells 1+ (NORMAL) Tear Drop Cells Ovalocytes 1+ (NORMAL) Helmet Cells 1+ (NORMAL) Schistocytes 2+ (NORMAL) PT 14.5 Seconds (11.1-14.7) INR 1.1 APTT 21.6 L SECONDS (22.3-36.8) Sodium Potassium Chloride Carbon Dioxide Anion Gap BUN Creatinine Estim Creat Clear Calc Estimated GFR Glucose Calcium Iron TIBC % Saturation Ferritin Total Bilirubin AST ALT Alkaline Phosphatase Troponin I < 0.012 ng/mL (0.000-0.034) Total Protein Albumin Vitamin B12 230.0 L pg/mL (239-931) Folate 9.9 ng/mL (2.76->20) Blood Type O Positive Antibody Screen Negative Crossmatch See Detail 05/25/23 05/25/23 05/26/23 14:49 20:37 05:46 WBC RBC Hgb 9.1 L D g/dL (12.0-15.0) Hct 30.8 L % (37.0-47.0) MCV MCH MCHC RDW Plt Count MPV Immature Gran % (Auto) Neut % (Auto) Lymph % (Auto) [place] % (Auto) Eos % (Auto) Baso % (Auto) Lymph # (Auto) [place] # (Auto) Eos # (Auto) Baso # (Auto) Abs Immat Gran (auto) Absolute Neuts (auto) Absolute Nucleated RBC Nucleated RBC % Platelet Estimate Hypochromasia Poikilocytosis Anisocytosis Sickle Cells
--- NOTE | 2023-05-26 14:18 | SUR.OPER ---
Report called to [facility] on [facility].
--- NOTE | 2023-05-26 14:56 | SUR.PHASEII ---
Awaiting transfer orders from Dr. Land.
[2023-05-26] MEDS: PEG (High)/E-LYTE SOLN 4,000 ML BTL 4000 ML PO (15:21)
[2023-05-27] VITALS (13 sets, daily range): BP systolic 94–169; BP diastolic 51–96; PULSE 79–104; RESP 15–18; TEMP 36.3–36.9; O2SAT 92–100
--- NOTE | 2023-05-27 07:25 | WPDANESEPPF ---
Anes - Initial Pre Proc Eval Procedure: Operation Date: 05/27/23 07:30 Proposed Procedures p Colonoscopy - Dilan Land MD Date/Time: 05/27/23 07:25 Surgeon: Marlen Campos MD Pre Op Diagnosis: anemia due t blood loss Patient Data Age: 83 Gender: F Height: 1.55 m Weight: 61.5 kg Last Vital Signs Temp 36.9 C 05/27/23 05:00 Pulse 90 05/27/23 05:00 Resp 17 05/27/23 05:00 BP 139/91 H 05/27/23 05:00 Pulse Ox 99 05/27/23 05:00 O2 Del Method Room Air 05/26/23 20:00 Allergies Allergy/AdvReac Type Severity Reaction Status Date / Time codeine Allergy Unknown Unknown Verified 05/26/23 13:13 Home Medications Medication Instructions Recorded Confirmed Type timolol maleate 0.5 % eye drops 1 drop RIGHT EYE Q12H 05/14/19 05/25/23 History tizanidine 2 mg capsule 2 mg PO TID PRN Muscle Pain 05/14/19 05/25/23 History tramadol 50 mg tablet 50 mg PO Q6H PRN pain #20 tabs 07/14/19 05/25/23 Rx hydrochlorothiazide 25 mg tablet See Rx Instructions .Route 03/13/22 05/25/23 Rx .COMPLEX #90 tabs carvedilol 6.25 mg tablet See Rx Instructions .Route 07/08/22 05/25/23 Rx .COMPLEX #60 tabs losartan 25 mg tablet 25 mg PO DAILY #30 tabs 07/28/22 05/25/23 Rx Laboratory Tests 05/26/23 05:46 Ferritin 7.70 L ng/mL (11.1-264) Patient hx anesthesia problems: none Family hx anesthesia problems: none Results Review: All pre-operative results and documents have been reviewed as part of the pre-operative evaluation. [facility] Past Medical History Medical History Chest pain BARNETT (dyspnea on exertion) Dyslipidemia Essential hypertension Impacted cerumen of both ears Preop cardiovascular exam Surgical History Surgical History H/O eye surgery H/O parotidectomy H/O tubal ligation H/O: hysterectomy History of left hip replacement History of right knee joint replacement Hx of tonsillectomy Social History Social History Social History: Caffeine-soda Smoking status: Never smoker Alcohol intake: never Substance use: never Substance use type: does not use Lack of Transportation: No Lack of Food: Never True Current Housing: I Have Housing Concerned About Future Housing: No Difficulty Paying Gas/Electric Bills: No Difficulty Paying for Meds: No Currently Unemployed: No Education: Master's Degree or Higher Difficulty w/ Childcare or Family Care: No Gender identity (if verbalized by the patient): Female Spiritual care concerns: No Anes - Eval Final PreProcedure Day of Procedure 05/27/23 07:25 Patient weight: overweight Heart: regular rate and rhythm Lungs: clear to auscultation Airway: Mallampati scale class II Neurological: alert and oriented Last oral intake: >/= 8 hours ASA classification: III Emergent: yes Anesthetic plan: proceed Anesthesia type and monitoring: general GIVS and standard monitoring Results Review: All pre-operative results and documents have been reviewed as part of the pre-operative evaluation. Informed Consent: The patient's anesthetic plan and its attendant risks and benefits were discussed with the patient/family/POA. Questions were solicited and answers provided to the satisfaction of the patient/family/POA.
[2023-05-27] MEDS: LACTATED RINGERS 1,000 ML 150 ML IV CONT (07:35)
[2023-05-27] MEDS: PANTOPRAZOLE SODIUM IV 40 MG VIAL IV PUSH ×2 (09:03→16:14)
[2023-05-27] MEDS: TIMOLOL MALEATE 0.5% OP SOLN 5 ML BOTTLE 1 DROP RIGHT EYE ×2 (09:03→21:10)
--- NOTE | 2023-05-27 09:37 | PM.CNGS ---
Assessment and Plan Assessment and plan (1) Colonic mass: Code(s): K63.89 - Other specified diseases of intestine Status: Acute Assessment and Plan: Will get CT abdomen and pelvis to assess for metastatic disease, CEA ordered, exam benign okay to have clears, will need urgent resection a given degree of anemia (2) Symptomatic anemia: Code(s): D64.9 - Anemia, unspecified Status: Acute Assessment and Plan: Secondary to above, stable since transfusion History of Present Illness Consult details Consult date: 05/27/23 Reason for consult: other (colon mass) Requesting physician: Dilan Land MD Narrative: The patient is an 83-year-old female presenting to the hospital with profound anemia requiring transfusion. Workup for anemia has yielded a right colonic mass. The patient had a colonoscopy today and biopsies were taken. The patient reports darker stool over the last couple of months, however no obvious bleeding. The patient denies signs or symptoms of obstruction. Review of Systems Review of Systems: All systems reviewed & are unremarkable except as noted in HPI and below PMFSH Past Medical History Medical History Chest pain BARNETT (dyspnea on exertion) Dyslipidemia Essential hypertension Impacted cerumen of both ears Preop cardiovascular exam Surgical History Surgical History H/O eye surgery H/O parotidectomy H/O tubal ligation H/O: hysterectomy History of left hip replacement History of right knee joint replacement Hx of tonsillectomy Social History Social History Social History: Caffeine-soda Smoking status: Never smoker Alcohol intake: never Substance use: never Substance use type: does not use Lack of Transportation: No Lack of Food: Never True Current Housing: I Have Housing Concerned About Future Housing: No Difficulty Paying Gas/Electric Bills: No Difficulty Paying for Meds: No Currently Unemployed: No Education: Master's Degree or Higher Difficulty w/ Childcare or Family Care: No Gender identity (if verbalized by the patient): Female Spiritual care concerns: No Meds Home Medications and Allergies Home Medications Medication Instructions Recorded Confirmed Type timolol maleate 0.5 % eye drops 1 drop RIGHT EYE Q12H 05/14/19 05/25/23 History tizanidine 2 mg capsule 2 mg PO TID PRN Muscle Pain 05/14/19 05/25/23 History tramadol 50 mg tablet 50 mg PO Q6H PRN pain #20 tabs 07/14/19 05/25/23 Rx hydrochlorothiazide 25 mg tablet See Rx Instructions .Route 03/13/22 05/25/23 Rx .COMPLEX #90 tabs carvedilol 6.25 mg tablet See Rx Instructions .Route 07/08/22 05/25/23 Rx .COMPLEX #60 tabs losartan 25 mg tablet 25 mg PO DAILY #30 tabs 07/28/22 05/25/23 Rx Allergies Allergy/AdvReac Type Severity Reaction Status Date / Time codeine Allergy Unknown Unknown Verified 05/27/23 07:37 Vital Signs Vital Signs - 24 hr 05/26/23 12:00 05/26/23 13:16 05/26/23 14:18 Temperature 36.1 C L Pulse Rate 86 81 92 Respiratory Rate 18 19 Blood Pressure 181/84 H 135/53 L Pulse Oximetry 100 97 Oxygen Delivery Room Air Room Air 05/26/23 14:28 05/26/23 14:38 05/26/23 14:48 Temperature Pulse Rate 88 88 86 Respiratory Rate 18 24 H 23 H Blood Pressure 136/75 136/75 142/87 H Pulse Oximetry 100 100 98 Oxygen Delivery Room Air Room Air Room Air 05/26/23 15:12 05/26/23 16:00 05/26/23 19:00 Temperature 36.1 C L 36.8 C Pulse Rate 85 86 87 Respiratory Rate 18 16 Blood Pressure 188/75 H 133/88 Pulse Oximetry 100 100 Oxygen Delivery 05/26/23 20:00 05/26/23 20:00 05/27/23 00:00 Temperature Pulse Rate 87 99 86 Respiratory Rate 16 Blood Pressure Pulse Oximetry 100 Oxygen Delivery Room Air 05/27/23 04:00 05/27/23 05:00 05/27/23 07:25 Temper
--- NOTE | 2023-05-27 12:40 | PM.IMPN ---
Progress Note: A&P Assessment and Plan (1) Symptomatic anemia: Code(s): D64.9 - Anemia, unspecified Status: Acute Assessment and Plan: Transfuse hemoglobin less than 7, 2 units given 05/25 Hypochromic microcytic anemia GI consult appreciated, taken to EGD/colonoscopy 05/26 Colon mass found, general surgery consulted, plan for OR 05/29 (2) Fecal occult blood test positive: Code(s): R19.5 - Other fecal abnormalities Status: Acute Assessment and Plan: GI consult (3) Essential hypertension: Code(s): I10 - Essential (primary) hypertension Status: Acute Assessment and Plan: Holding home meds Restarted as needed Blood pressures reviewed 05/27 Plan DVT prophylaxis with SCDs GI prophylaxis with PPI Code status full code Subjective Date/time seen: 05/27/23 12:40 Interval history: 83-year-old female with history of hypertension, hyperlipidemia is presenting with lightheadedness and dizziness and found to have a hemoglobin of 5 and is currently being worked up for anemia. Status post 2 units packed red blood cells 05/25. Hemoglobin 9.4 after transfusion 05/26. No overnight events noted. No chest pain or shortness of breath. No nausea, vomiting or diarrhea. No fevers or chills. Review of Systems Review of Systems: 12 point review of systems was assessed and was negative except as noted in the HPI Exam Narrative: General: No acute distress, alert and oriented per baseline HEENT: Atraumatic, normocephalic, mucous membranes moist CV: Regular rate and rhythm, S1, S2 Lungs: Clear to auscultation bilaterally, no rales or crackles noted, no wheezes, good air entry Abdomen: Soft, nontender, nondistended Extremities: Normal to inspection Skin: No rashes noted, no lesions or wounds seen Psych: Euthymic, normal affect Objective Data Vital Signs Vital Signs: Vital Signs - 24 hr 05/26/23 13:16 05/26/23 14:18 05/26/23 14:28 Temperature 97 F L Pulse Rate 81 92 88 Respiratory Rate 18 19 18 Blood Pressure 181/84 H 135/53 L 136/75 Pulse Oximetry 100 97 100 Oxygen Delivery Room Air Room Air Room Air 05/26/23 14:38 05/26/23 14:48 05/26/23 15:12 Temperature 97.0 F L Pulse Rate 88 86 85 Respiratory Rate 24 H 23 H 18 Blood Pressure 136/75 142/87 H 188/75 H Pulse Oximetry 100 98 100 Oxygen Delivery Room Air Room Air 05/26/23 16:00 05/26/23 19:00 05/26/23 20:00 Temperature 98.3 F Pulse Rate 86 87 87 Respiratory Rate 16 16 Blood Pressure 133/88 Pulse Oximetry 100 100 Oxygen Delivery Room Air 05/26/23 20:00 05/27/23 00:00 05/27/23 04:00 Temperature Pulse Rate 99 86 87 Respiratory Rate Blood Pressure Pulse Oximetry Oxygen Delivery 05/27/23 05:00 05/27/23 07:25 05/27/23 07:51 Temperature 98.5 F 97.5 F L Pulse Rate 90 85 90 Respiratory Rate 17 16 16 Blood Pressure 139/91 H 169/96 H 94/52 L Pulse Oximetry 99 100 100 Oxygen Delivery Room Air Room Air 05/27/23 08:01 05/27/23 09:45 05/27/23 08:00 Temperature Pulse Rate 97 Respiratory Rate 18 Blood Pressure 118/76 Pulse Oximetry 98 97 Oxygen Delivery Room Air Room Air Room Air 05/27/23 08:11 05/27/23 12:00 Temperature Pulse Rate 95 104 H Respiratory Rate 16 Blood Pressure 133/80 Pulse Oximetry 97 Oxygen Delivery Room Air Intake/Output Intake/Output: Intake & Output 05/24/23 05/25/23 05/26/23 05/27/23 23:59 23:59 23:59 23:59 Intake Total 800 1190 150 Output Total 300 Balance 800 890 150 Meds/Results Medications: Active Medications Generic Name Dose Route Start Last Admin Trade Name Freq PRN Reason Stop Dose Admin Ondansetron HCl 4 mg 05/25/23 15:29 Ondansetron Inj 4 Mg/2 Ml Vial IV PUSH Q4H PRN Nausea Pantoprazole Sodium 40 mg 05/25/23 17:00 05/27/23 09:03 Pantoprazole Sodium Iv 40 Mg Vial IV PUSH 40 mg BID ZINA Administration Timolol Maleate 1 melquiades
[2023-05-27 14:20] LABS: Carcinoembryonic Antigen 7.9 ng/mL (0.0-3.0)
[2023-05-28] VITALS (10 sets, daily range): BP systolic 135–158; BP diastolic 61–76; PULSE 79–90; RESP 15–18; TEMP 36.2–37.1; O2SAT 99–100
[2023-05-28] MEDS: PANTOPRAZOLE SODIUM IV 40 MG VIAL IV PUSH ×2 (09:02→16:34)
[2023-05-28] MEDS: TIMOLOL MALEATE 0.5% OP SOLN 5 ML BOTTLE 1 DROP RIGHT EYE ×2 (09:02→20:22)
--- NOTE | 2023-05-28 09:09 | WPDGIPROGNO ---
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 Tattoo was placed yesterday. Histology pending but grossly consistent with malignancy. This is the etiology for her chronic blood loss and subsequent iron deficiency anemia. I discussed case with surgery who anticipate surgery tomorrow. (2) RIMMA (iron deficiency anemia): Code(s): D50.9 - Iron deficiency anemia, unspecified Status: Acute Assessment and Plan: Iron replacement suggested. This may be deferred until after resection of tumor. Subjective Date/time seen: 05/28/23 09:09 Interval history: Patient alert comfortable this morning. Ambulating room. Feels much better after her transfusion. We discussed new finding of carcinoma the ascending colon. Surgery anticipated Monday. Review of Systems Review of Systems: Review of systems noncontributory. Exam Narrative: Physical exam reveals patient to be alert. Vital signs stable. HEENT exam is unremarkable. Patient anicteric. Lungs are clear to auscultation and percussion. Heart is without murmur or extra sounds. Abdomen bowel sounds are present soft nontender with no organomegaly. Objective Data Vital Signs Vital Signs: Vital Signs - 24 hr 05/27/23 09:45 05/27/23 12:00 05/27/23 15:33 Temperature 97.4 F L Pulse Rate 104 H 92 Respiratory Rate 18 Blood Pressure 168/83 H Pulse Oximetry 97 100 Oxygen Delivery Room Air 05/27/23 16:00 05/27/23 20:00 05/27/23 20:00 Temperature Pulse Rate 86 83 86 Respiratory Rate 18 Blood Pressure Pulse Oximetry 100 Oxygen Delivery Room Air 05/27/23 22:00 05/28/23 00:00 05/28/23 04:00 Temperature 98.4 F Pulse Rate 79 84 80 Respiratory Rate 15 Blood Pressure 149/51 H Pulse Oximetry 92 Oxygen Delivery 05/28/23 06:00 Temperature 98.7 F Pulse Rate 85 Respiratory Rate 15 Blood Pressure 156/70 H Pulse Oximetry 99 Oxygen Delivery Intake/Output Intake/Output: Intake & Output 05/25/23 05/26/23 05/27/23 05/28/23 23:59 23:59 23:59 23:59 Intake Total 800 1190 1370 Output Total 300 Balance 548 050 4364 Meds/Results Medications: Active Medications Generic Name Dose Route Start Last Admin Trade Name Freq PRN Reason Stop Dose Admin Ondansetron HCl 4 mg 05/25/23 15:29 Ondansetron Inj 4 Mg/2 Ml Vial IV PUSH Q4H PRN Nausea Pantoprazole Sodium 40 mg 05/25/23 17:00 05/28/23 09:02 Pantoprazole Sodium Iv 40 Mg Vial IV PUSH 40 mg BID ZINA Administration Timolol Maleate 1 drop 05/26/23 09:00 05/28/23 09:02 Timolol Maleate 0.5% Op Soln 5 Ml Bottle RIGHT EYE 1 drop Q12HR ZINA Administration Tramadol HCl 50 mg 05/26/23 01:36 Tramadol Hcl (*Crx) 50 Mg Tablet PO Q6H PRN pain Radiology Results: ITS Impressions Chest X-Ray 05/25/23 14:36 IMPRESSION: 1. No acute cardiopulmonary disease. Abdomen/Pelvis CT 05/27/23 18:01 IMPRESSION: 1. Significant irregular thickening of the cecum, suspicious for known colon cancer. No evidence for metastatic disease. 2: Bibasilar atelectasis/scarring. Labs Labs: Laboratory Results - last 24 hr 05/27/23 13:11 Carcinoembryonic Ag 7.9 H Amg Follow[facility]up [facility]illing [facility] Follow-up Hospital Follow-up: [id number] [facility]
--- NOTE | 2023-05-28 10:59 | PM.PNGS ---
Progress Note: A&P Assessment and Plan (1) Colonic mass: Code(s): K63.89 - Other specified diseases of intestine Status: Acute Assessment and Plan: exam benign, cont clears, labs and imaging reviewed, will proceed c R colectomy tomorrow Subjective Subjective Date/Time Seen: 05/28/23 10:59 Interval history: feels good, aries clears Review of Systems Review of Systems: All systems reviewed & are unremarkable except as noted in HPI and below Exam Const: General: cooperative, comfortable and no acute distress Resp: Auscultation: clear to auscultation bilaterally Cardio: Rate: regular rate Rhythm: regular rhythm GI: Inspection: normal to inspection and non-distended GI Palp: No abdominal tenderness, Yes Soft to palpation, No Tenderness to palpation present (GI), No Guarding due to palpation present (GI) and No Rigid due to palpation Objective Data Vital Signs Vital Signs: Vital Signs - 24 hr 05/27/23 12:00 05/27/23 15:33 05/27/23 16:00 Temperature 36.3 C L Pulse Rate 104 H 92 86 Respiratory Rate 18 Blood Pressure 168/83 H Pulse Oximetry 100 Oxygen Delivery 05/27/23 20:00 05/27/23 20:00 05/27/23 22:00 Temperature 36.9 C Pulse Rate 83 86 79 Respiratory Rate 18 15 Blood Pressure 149/51 H Pulse Oximetry 100 92 Oxygen Delivery Room Air 05/28/23 00:00 05/28/23 04:00 05/28/23 06:00 Temperature 37.1 C Pulse Rate 84 80 85 Respiratory Rate 15 Blood Pressure 156/70 H Pulse Oximetry 99 Oxygen Delivery 05/28/23 09:10 05/28/23 08:00 05/28/23 10:36 Temperature Pulse Rate 90 Respiratory Rate Blood Pressure Pulse Oximetry 99 Oxygen Delivery Room Air Room Air Intake/Output Intake/Output: Intake & Output 05/25/23 05/26/23 05/27/23 05/28/23 23:59 23:59 23:59 23:59 Intake Total 800 1190 1370 118 Output Total 300 Balance 343 583 7487 118 Meds/Results Medications: Active Medications Generic Name Dose Route Start Last Admin Trade Name Freq PRN Reason Stop Dose Admin Cefazolin Sodium 2 gm in 50 mls @ 100 mls/hr 05/28/23 10:58 Ancef 2 Gm/D5w 50 Ml IVPB 05/28/23 11:27 ONCE ONE Ondansetron HCl 4 mg 05/25/23 15:29 Ondansetron Inj 4 Mg/2 Ml Vial IV PUSH Q4H PRN Nausea Pantoprazole Sodium 40 mg 05/25/23 17:00 05/28/23 09:02 Pantoprazole Sodium Iv 40 Mg Vial IV PUSH 40 mg BID ZINA Administration Timolol Maleate 1 drop 05/26/23 09:00 05/28/23 09:02 Timolol Maleate 0.5% Op Soln 5 Ml Bottle RIGHT EYE 1 drop Q12HR ZINA Administration Tramadol HCl 50 mg 05/26/23 01:36 Tramadol Hcl (*Crx) 50 Mg Tablet PO Q6H PRN pain Radiology Results: ITS Impressions Chest X-Ray 05/25/23 14:36 IMPRESSION: 1. No acute cardiopulmonary disease. Abdomen/Pelvis CT 05/27/23 18:01 IMPRESSION: 1. Significant irregular thickening of the cecum, suspicious for known colon cancer. No evidence for metastatic disease. 2: Bibasilar atelectasis/scarring. Labs Labs: Laboratory Results - last 24 hr 05/27/23 13:11 Carcinoembryonic Ag 7.9 H
--- NOTE | 2023-05-28 12:57 | PM.IMPN ---
Progress Note: A&P Assessment and Plan (1) Symptomatic anemia: Code(s): D64.9 - Anemia, unspecified Status: Acute Assessment and Plan: Transfuse hemoglobin less than 7, 2 units given 05/25 Hypochromic microcytic anemia GI consult appreciated, taken to EGD/colonoscopy 05/26 Colon mass found, general surgery consulted, plan for OR 05/29 (2) Fecal occult blood test positive: Code(s): R19.5 - Other fecal abnormalities Status: Acute Assessment and Plan: GI consult (3) Essential hypertension: Code(s): I10 - Essential (primary) hypertension Status: Acute Assessment and Plan: Holding home meds Restarted as needed Blood pressures reviewed 05/28 Plan DVT prophylaxis with SCDs GI prophylaxis with PPI Code status full code Subjective Date/time seen: 05/28/23 12:57 Interval history: 83-year-old female with history of hypertension, hyperlipidemia is presenting with lightheadedness and dizziness and found to have a hemoglobin of 5 and is currently being worked up for anemia. Status post 2 units packed red blood cells 05/25. Hemoglobin 9.4 after transfusion 05/26. No overnight events noted. No chest pain or shortness of breath. No nausea, vomiting or diarrhea. No fevers or chills. No complaints, unchanged from yesterday. Looking forward to getting the surgery over with tomorrow. Review of Systems Review of Systems: 12 point review of systems was assessed and was negative except as noted in the HPI Exam Narrative: General: No acute distress, alert and oriented per baseline HEENT: Atraumatic, normocephalic, mucous membranes moist CV: Regular rate and rhythm, S1, S2 Lungs: Clear to auscultation bilaterally, no rales or crackles noted, no wheezes, good air entry Abdomen: Soft, nontender, nondistended Extremities: Normal to inspection Skin: No rashes noted, no lesions or wounds seen Psych: Euthymic, normal affect Objective Data Vital Signs Vital Signs: Vital Signs - 24 hr 05/27/23 15:33 05/27/23 16:00 05/27/23 20:00 Temperature 97.4 F L Pulse Rate 92 86 83 Respiratory Rate 18 Blood Pressure 168/83 H Pulse Oximetry 100 Oxygen Delivery 05/27/23 20:00 05/27/23 22:00 05/28/23 00:00 Temperature 98.4 F Pulse Rate 86 79 84 Respiratory Rate 18 15 Blood Pressure 149/51 H Pulse Oximetry 100 92 Oxygen Delivery Room Air 05/28/23 04:00 05/28/23 06:00 05/28/23 09:10 Temperature 98.7 F Pulse Rate 80 85 Respiratory Rate 15 Blood Pressure 156/70 H Pulse Oximetry 99 Oxygen Delivery Room Air 05/28/23 08:00 05/28/23 10:36 05/28/23 12:00 Temperature Pulse Rate 90 79 Respiratory Rate Blood Pressure Pulse Oximetry 99 Oxygen Delivery Room Air Intake/Output Intake/Output: Intake & Output 05/25/23 05/26/23 05/27/23 05/28/23 23:59 23:59 23:59 23:59 Intake Total 800 1190 1370 118 Output Total 300 Balance 945 586 9253 118 Meds/Results Medications: Active Medications Generic Name Dose Route Start Last Admin Trade Name Freq PRN Reason Stop Dose Admin Sodium Chloride 1,000 mls @ 100 mls/hr 05/29/23 00:01 Normal Saline Iv IV CONT .Q10H ZINA Cefazolin Sodium 2 gm in 50 mls @ 100 mls/hr 05/29/23 07:00 Ancef 2 Gm/D5w 50 Ml IVPB 05/29/23 07:29 ONCE ONE Ondansetron HCl 4 mg 05/25/23 15:29 Ondansetron Inj 4 Mg/2 Ml Vial IV PUSH Q4H PRN Nausea Pantoprazole Sodium 40 mg 05/25/23 17:00 05/28/23 09:02 Pantoprazole Sodium Iv 40 Mg Vial IV PUSH 40 mg BID ZINA Administration Timolol Maleate 1 drop 05/26/23 09:00 05/28/23 09:02 Timolol Maleate 0.5% Op Soln 5 Ml Bottle RIGHT EYE 1 drop Q12HR ZINA Administration Tramadol HCl 50 mg 05/26/23 01:36 Tramadol Hcl (*Crx) 50 Mg Tablet PO Q6H PRN pain Radiology Results: ITS Impressions Chest X-Ray 05/25/23 14:36 IMPRESSION: 1. No acute cardiop
[2023-05-29] VITALS (21 sets, daily range): BP systolic 152–187; BP diastolic 65–87; PULSE 63–95; RESP 16–20; TEMP 35.9–36.6; O2SAT 91–100
[2023-05-29] MEDS: SODIUM CHLORIDE 0.9% IV 1,000 ML 100 ML IV CONT (00:07)
--- NOTE | 2023-05-29 09:44 | WPDANESEPPF ---
Anes - Initial Pre Proc Eval Procedure: Operation Date: 05/26/23 15:00 Proposed Procedures p Esophagogastroduodenoscopy - Dilan Land MD Operation Date: 05/27/23 07:30 Proposed Procedures p Colonoscopy - Dilan Land MD Operation Date: 05/29/23 10:30 Proposed Procedures p Hand Assisted Laparoscopic Hemicolectomy - Ary Naik MD Date/Time: 05/29/23 09:44 Surgeon: Marlen Campos MD Pre Op Diagnosis: anemia due t blood loss Patient Data Age: 83 Gender: F Height: 1.55 m Weight: 61.5 kg Last Vital Signs Temp 36.2 C L 05/29/23 03:55 Pulse 81 05/29/23 04:00 Resp 18 05/29/23 03:55 BP 152/72 H 05/29/23 03:55 Pulse Ox 100 05/29/23 03:55 O2 Del Method Room Air 05/28/23 10:36 Allergies Allergy/AdvReac Type Severity Reaction Status Date / Time codeine Allergy Unknown Unknown Verified 05/29/23 09:41 Home Medications Medication Instructions Recorded Confirmed Type timolol maleate 0.5 % eye drops 1 drop RIGHT EYE Q12H 05/14/19 05/25/23 History tizanidine 2 mg capsule 2 mg PO TID PRN Muscle Pain 05/14/19 05/25/23 History tramadol 50 mg tablet 50 mg PO Q6H PRN pain #20 tabs 07/14/19 05/25/23 Rx hydrochlorothiazide 25 mg tablet See Rx Instructions .Route 03/13/22 05/25/23 Rx .COMPLEX #90 tabs carvedilol 6.25 mg tablet See Rx Instructions .Route 07/08/22 05/25/23 Rx .COMPLEX #60 tabs losartan 25 mg tablet 25 mg PO DAILY #30 tabs 07/28/22 05/25/23 Rx Patient hx anesthesia problems: none Family hx anesthesia problems: none Results Review: All pre-operative results and documents have been reviewed as part of the pre-operative evaluation. [facility] Past Medical History Medical History Chest pain BARNETT (dyspnea on exertion) Dyslipidemia Essential hypertension Impacted cerumen of both ears Preop cardiovascular exam Surgical History Surgical History H/O eye surgery H/O parotidectomy H/O tubal ligation H/O: hysterectomy History of left hip replacement History of right knee joint replacement Hx of tonsillectomy Social History Social History Social History: Caffeine-soda Smoking status: Never smoker Alcohol intake: never Substance use: never Substance use type: does not use Lack of Transportation: No Lack of Food: Never True Current Housing: I Have Housing Concerned About Future Housing: No Difficulty Paying Gas/Electric Bills: No Difficulty Paying for Meds: No Currently Unemployed: No Education: Master's Degree or Higher Difficulty w/ Childcare or Family Care: No Gender identity (if verbalized by the patient): Female Spiritual care concerns: No Anes - Eval Final PreProcedure Day of Procedure 05/29/23 09:44 Patient weight: normal Heart: regular rate and rhythm Lungs: clear to auscultation Airway: Mallampati scale class II Neurological: alert and oriented ASA classification: III Emergent: no Anesthetic plan: proceed Anesthesia type and monitoring: general ETT and standard monitoring Results Review: All pre-operative results and documents have been reviewed as part of the pre-operative evaluation. Informed Consent: The patient's anesthetic plan and its attendant risks and benefits were discussed with the patient/family/POA. Questions were solicited and answers provided to the satisfaction of the patient/family/POA.
[2023-05-29] MEDS: LACTATED RINGERS 1,000 ML 30 ML IV CONT ×2 (09:50→12:23)
--- NOTE | 2023-05-29 10:30 | WPDHPUPDATE1 ---
History and Physical Update Update Date/Time: 05/29/23 10:30 History and Physical has been reviewed, including an updated exam of the patient. There are NO changes in the patient's condition. Risks, benefits, and alternatives have been discussed and questions answered. Patient agrees to proceed with procedure.
[2023-05-29] MEDS: ceFAZolin 2 GM/D5W 50 ML 2 GM/50 ML BAG IVPB (10:32)
[2023-05-29] MEDS: BUPIVACAINE/EPINEPHRINE 0.5% 50 ML VIAL 20 ML INFILTRATE (11:14)
--- NOTE | 2023-05-29 12:33 | P.OP_ITS ---
Procedure Note - Detailed Date of Procedure 05/29/23 Pre-op Diagnosis Right colon cancer Post-op Diagnosis Same Procedure Performed hand assisted laparoscopic right hemicolectomy c mobilization of hepatic flexure Surgeon rAy Naik MD Anesthesia General Indications 83-year-old female presenting with profound anemia. Workup including colonoscopy significant for right colon cancer. Findings palpable mass and tatoo in ascending colon Description of Procedure The patient was taken to the operating room and placed in the supine position. After adequate induction of general anesthesia, the patient was prepped and draped normal sterile fashion. A time-out was then done to verify the patient's identity as well as the procedure being performed. I began by making a hand port incision around the umbilicus. This was carried down into the peritoneal cavity and the hand port was then placed. I then insufflated the abdomen through the hand port. I then placed the camera through the hand port and under direct visualization, I placed 2 5 mm ports in right lower and right mid abdomen. Once this was done, I examined the right abdomen. There was noted to be a tattoo associated with a mass in the proximal ascending colon. I then began my medial approach. I did this by recognizing and transecting the right colic vessels. This was taken down near the base of the mesentery with the LigaSure. Once this was done, I carried this plane towards the hepatic flexure until I encountered the duodenum which was mobilized posteriorly. this plane and dissection was carried down until I was able to visualize the liver. I then began taking down the lateral attachments of the terminal ileum and right colon including taking down the white line of Toldt and the hepatic flexure. Once this was done my medial and lateral dissection planes met. I was able to easily manipulate the right colon. The tattooed region and palpable mass was noted in the proximal ascending colon. Further dissection was done to free up the transverse colon, including taking down some the omentum. At this point, I extracorporealyzed the right colon and terminal ileum. I then transected the terminal ileum approximately 10 cm proximal to the ileocolic junction with a 75 RULA stapler. I then localized the tumor in the proximal ascending colon. I measured 10 cm distal to this and transected the transverse colon at this point. Of note, I was able to palpate the middle colic vessels and the transection was done proximal to the vessels. I then performed a [id number] functional end-to-end anastomosis between the ileum and transverse colon with a 75 RULA stapler followed by a TL 60 stapler. The anastomosis was noted to be tension- free and widely patent. I closed the messenteric defect with a 2.0 silk suture. I then copiously irrigated the abdomen, no other pathology was noted. I then closed the hand port incision with a 0 PDS suture at the fascial level. The skin was closed with 4 O Monocryl subcuticular sutures including the 5 mm ports sites. Dermabond was then placed on all wounds. The patient tolerated the procedure well. She was extubated in the operating room postoperatively and will be transferred to the recovery room in stable condition. Estimated Blood Loss 25 Urine Output 300 Drains No Packing No Pathology Yes Complications No immediate complications Condition Stable Disposition PACU [facility] Billing Surgery - Charge Forward: Surgery Billing
[2023-05-29] MEDS: ONDANSETRON INJ 4 MG/2 ML VIAL IV PUSH (12:50)
--- NOTE | 2023-05-29 13:02 | PM.IMPN ---
Progress Note: A&P Assessment and Plan (1) Symptomatic anemia: Code(s): D64.9 - Anemia, unspecified Status: Acute Assessment and Plan: Transfuse hemoglobin less than 7, 2 units given 05/25 Hypochromic microcytic anemia GI consult appreciated, taken to EGD/colonoscopy 05/26 Colon mass found, general surgery consulted, OR 05/29 (2) Fecal occult blood test positive: Code(s): R19.5 - Other fecal abnormalities Status: Acute Assessment and Plan: GI consult (3) Essential hypertension: Code(s): I10 - Essential (primary) hypertension Status: Acute Assessment and Plan: Holding home meds Restarted as needed Blood pressures reviewed 05/29 Plan DVT prophylaxis with SCDs GI prophylaxis with PPI Code status full code Subjective Date/time seen: 05/29/23 13:02 Interval history: 83-year-old female with history of hypertension, hyperlipidemia is presenting with lightheadedness and dizziness and found to have a hemoglobin of 5 and is currently being worked up for anemia. Status post 2 units packed red blood cells 05/25. Hemoglobin 9.4 after transfusion 05/26. No overnight events noted. No fevers, in the OR today Exam Narrative: in OR, per surgery Objective Data Vital Signs Vital Signs: Vital Signs - 24 hr 05/28/23 14:00 05/28/23 16:00 05/28/23 21:52 Temperature 97.8 F 97.1 F L Pulse Rate 85 81 79 Respiratory Rate 16 18 Blood Pressure 135/76 158/61 H Pulse Oximetry 100 100 Oxygen Delivery Oxygen Flow Rate 05/28/23 20:00 05/29/23 00:00 05/29/23 03:55 Temperature 97.1 F L Pulse Rate 82 73 80 Respiratory Rate 18 Blood Pressure 152/72 H Pulse Oximetry 100 Oxygen Delivery Oxygen Flow Rate 05/29/23 04:00 05/29/23 09:41 05/29/23 08:00 Temperature 97.5 F L Pulse Rate 81 86 86 Respiratory Rate 18 Blood Pressure 157/69 H Pulse Oximetry 100 Oxygen Delivery Room Air Oxygen Flow Rate 05/29/23 12:23 05/29/23 12:35 05/29/23 12:50 Temperature Pulse Rate 75 74 77 Respiratory Rate 18 16 16 Blood Pressure 164/74 H 177/86 H 174/84 H Pulse Oximetry 100 100 94 Oxygen Delivery Simple Face Mask Simple Face Mask Room Air Oxygen Flow Rate 8 8 Intake/Output Intake/Output: Intake & Output 05/26/23 05/27/23 05/28/23 05/29/23 23:59 23:59 23:59 23:59 Intake Total 1190 1370 238 50 Output Total 300 300 Balance 890 1370 238 -250 Meds/Results Medications: Active Medications Generic Name Dose Route Start Last Admin Trade Name Freq PRN Reason Stop Dose Admin Fentanyl Citrate 25 mcg 05/29/23 09:45 Fentanyl Citrate Inj (*Crx) 100 Mcg/2 Ml Vial IV PUSH Q2M PRN Pain Sodium Chloride 1,000 mls @ 100 mls/hr 05/29/23 00:01 05/29/23 00:07 Normal Saline Iv IV CONT 100 mls/hr .Q10H ZINA Administration Lactated Ringer's 1,000 mls @ 30 mls/hr 05/29/23 09:45 05/29/23 12:23 Lr - Lactated Ringers Iv IV CONT Infused .Q24H ZINA Infusion Lactated Ringer's 1,000 mls @ 30 mls/hr 05/29/23 09:45 05/29/23 12:23 Lr - Lactated Ringers Iv IV CONT 30 mls/hr .Q24H ZINA Administration Ondansetron HCl 4 mg 05/25/23 15:29 Ondansetron Inj 4 Mg/2 Ml Vial IV PUSH Q4H PRN Nausea Ondansetron HCl 4 mg 05/29/23 09:45 05/29/23 12:50 Ondansetron Inj 4 Mg/2 Ml Vial IV PUSH 4 mg ONCE PRN Administration Nausea Pantoprazole Sodium 40 mg 05/25/23 17:00 05/29/23 09:23 Pantoprazole Sodium Iv 40 Mg Vial IV PUSH Not Given BID ZINA Timolol Maleate 1 drop 05/26/23 09:00 05/29/23 10:50 Timolol Maleate 0.5% Op Soln 5 Ml Bottle RIGHT EYE Not Given Q12HR ZINA Tramadol HCl 50 mg 05/26/23 01:36 Tramadol Hcl (*Crx) 50 Mg Tablet PO Q6H PRN pain Radiology Results: ITS Impressions Chest X-Ray 05/25/23 14:36 IMPRESSION: 1. No acute cardiopulmonary disease. Abdomen/Pelvis CT 05/27/23 18:01 IMPRESSION: 1.
[2023-05-29] MEDS: fentaNYL CITRATE INJ (*CRX) 100 MCG/2 ML VIAL 25 MCG IV PUSH ×2 (13:26→13:30)
[2023-05-29] MEDS: LACTATED RINGERS 1,000 ML 100 ML IV CONT ×2 (13:59→23:56)
[2023-05-29] MEDS: MORPHINE SULFATE (*CRX) 4 MG/ML INJ IV PUSH (14:00)
[2023-05-29] MEDS: ceFAZolin 1 GM/NS 50 ML 1 GM/50 ML BAG IVPB (18:25)
[2023-05-29] MEDS: PANTOPRAZOLE SODIUM IV 40 MG VIAL IV PUSH (18:26)
[2023-05-29] MEDS: HYDROcodone/acetaminophen (*CRX) 5-325 MG TABLET 1 TAB PO (20:56)
[2023-05-29] MEDS: TIMOLOL MALEATE 0.5% OP SOLN 5 ML BOTTLE 1 DROP RIGHT EYE (20:56)
[2023-05-29] MEDS: carvediloL 6.25 MG TABLET BY MOUTH (20:56)
[2023-05-30] VITALS (12 sets, daily range): BP systolic 71–156; BP diastolic 42–64; PULSE 80–94; RESP 16–18; TEMP 36.3–36.8; O2SAT 94–100
[2023-05-30] MEDS: ceFAZolin 1 GM/NS 50 ML 1 GM/50 ML BAG IVPB (01:49)
[2023-05-30] MEDS: HYDROcodone/acetaminophen (*CRX) 5-325 MG TABLET 1 TAB PO ×3 (04:49→15:12)
[2023-05-30 06:02] LABS: Basophils Percent Auto 0.1 % (0.2-1.2); Hematocrit 29.5 % (37.0-47.0); Hemoglobin 8.8 g/dL (12.0-15.0); Immature Granulocyte Absolute 0.06 K/mm3 (0.00-0.031); Immature Granulocyte Percent A 0.4 % (0-0.5); Lymphocytes Absolute Auto 0.69 K/mm3 (0.9-3.2); Lymphocytes Percent Auto 4.4 % (18.3-44.2); Mean Corpuscular HGB Conc 29.8 g/dl (32-36); Mean Corpuscular Hemoglobin 21.5 pg (26-34); Mean Corpuscular Volume 72.1 fl (80-100); Mean Platelet Volume 8.9 fl (7.4-10.4); Monocytes Percent Auto 6.6 % (2.6-8.5); Neutrophils Absolute Auto 13.8 K/mm3 (1.3-6.7); Neutrophils Percent Auto 88.5 % (45.5-73.1); Platelet Count Result 262 k/mm3 (150-375); Red Blood Count 4.09 M/mm3 (4.2-5.4); White Blood Count 15.5 K/mm3 (4.5-10.0)
[2023-05-30 06:17] LABS: Anion Gap 8 mmol/L (8-16); Blood Urea Nitrogen 7 mg/dL (7-17); Calcium 8.7 mg/dL (8.4-10.2); Carbon Dioxide 22 mmol/L (22-30); Chloride 104 mmol/L (98-107); Estimated CRCL calculation 40 ml/min; Estimated Glomerular Filt Rate > 60; Glucose 126 mg/dL (65-110); Potassium 3.6 mmol/L (3.4-5.0); Sodium 134 mmol/L (137-145)
[2023-05-30 06:43] LABS: Platelet Estimate Adequate (Adequate)
[2023-05-30 06:44] LABS: Hypochromasia 2+ (NORMAL); Ovalocytes 1+ (NORMAL); Schistocytes 1+ (NORMAL); Tear Drop Cells 1+ (NORMAL)
--- NOTE | 2023-05-30 07:24 | P.PNAN_ITS ---
Anes - Prog Note Post-Op Date/Time: 05/30/23 07:24 Cardiovascular status: normal Respiratory status: normal Airway patency: baseline Mental status: baseline Post-Op hydration status: normal Vital Signs: Last Vital Signs Temp 36.6 C 05/30/23 03:22 Pulse 88 05/30/23 04:00 Resp 18 05/30/23 03:22 BP 154/62 H 05/30/23 03:22 Pulse Ox 98 05/30/23 03:22 O2 Del Method Nasal Cannula 05/29/23 14:30 O2 Flow Rate 2 05/29/23 14:30 Pain Score (VAS): 3 I/O: Intake & Output 05/29/23 05/29/23 05/30/23 15:59 23:59 07:59 Intake Total 250 1840 340 Output Total 350 300 250 Balance -100 1540 90 Laboratory Tests 05/30/23 05:30 05/30/23 05:30 05/30/23 05:30 WBC 15.5 H RBC 4.09 L Hgb 8.8 L Hct 29.5 L MCV 72.1 L MCH 21.5 L MCHC 29.8 L RDW TNP Plt Count 262 MPV 8.9 Immature Gran % (Auto) 0.4 Neut % (Auto) 88.5 H Lymph % (Auto) 4.4 L Richardson % (Auto) 6.6 Eos % (Auto) 0.0 Baso % (Auto) 0.1 L Lymph # (Auto) 0.69 L Richardson # (Auto) 1.0 H Eos # (Auto) 0.0 Baso # (Auto) 0.0 Abs Immat Gran (auto) 0.06 H Absolute Neuts (auto) 13.8 H Absolute Nucleated RBC 0.0 Nucleated RBC % 0.0 Platelet Estimate Adequate Hypochromasia 2+ Tear Drop Cells 1+ Ovalocytes 1+ Schistocytes 1+ Sodium 134 L Potassium 3.6 Chloride 104 Carbon Dioxide 22 Anion Gap 8 BUN 7 Creatinine 0.80 Estim Creat Clear Calc 40 Estimated GFR > 60 Glucose 126 H Calcium 8.7 Post-procedural complaints: none Patient Feedback: Patient satisfied with anesthetic care.
[2023-05-30] MEDS: carvediloL 6.25 MG TABLET BY MOUTH ×2 (09:16→21:07)
[2023-05-30] MEDS: hydroCHLOROthiazide 25 MG TABLET BY MOUTH (09:16)
[2023-05-30] MEDS: LOSARTAN POTASSIUM 25 MG TABLET PO (09:16)
[2023-05-30] MEDS: PANTOPRAZOLE SODIUM IV 40 MG VIAL IV PUSH ×2 (09:18→17:08)
[2023-05-30] MEDS: ENOXAPARIN 40 MG/0.4 ML SYRINGE SUB-Q (09:19)
[2023-05-30] MEDS: TIMOLOL MALEATE 0.5% OP SOLN 5 ML BOTTLE 1 DROP RIGHT EYE ×2 (09:19→21:07)
--- NOTE | 2023-05-30 09:33 | PM.IMPN ---
Progress Note: A&P Assessment and Plan (1) Symptomatic anemia: Code(s): D64.9 - Anemia, unspecified Status: Acute Assessment and Plan: Transfuse hemoglobin less than 7, 2 units given 05/25 Hypochromic microcytic anemia GI consult appreciated, taken to EGD/colonoscopy 05/26 Colon mass found, general surgery consulted OR 05/29 right hemicolectomy for colonic mass (2) Fecal occult blood test positive: Code(s): R19.5 - Other fecal abnormalities Status: Acute Assessment and Plan: GI consult (3) Essential hypertension: Code(s): I10 - Essential (primary) hypertension Status: Acute Assessment and Plan: Holding home meds Restarted as needed Blood pressures reviewed 05/30 (4) B12 deficiency: Code(s): E53.8 - Deficiency of other specified B group vitamins Status: Acute Assessment and Plan: B12 injection, monitor outpatient Plan DVT prophylaxis with SCDs GI prophylaxis with PPI Code status full code Subjective Date/time seen: 05/30/23 09:33 Interval history: 83-year-old female with history of hypertension, hyperlipidemia is presenting with lightheadedness and dizziness and found to have a hemoglobin of 5 and is currently being worked up for anemia. Status post 2 units packed red blood cells 05/25. Hemoglobin 9.4 after transfusion 05/26. OR 05/29 hemicolectomy. No overnight events noted. No chest pain or shortness of breath. No nausea, vomiting or diarrhea. No fevers or chills. With abdominal pain. No flatus/BM. POD#1 right hemicolectomy for colon mass 05/29 Review of Systems Review of Systems: 12 point review of systems was assessed and was negative except as noted in the HPI Exam Narrative: General: No acute distress, alert and oriented per baseline HEENT: Atraumatic, normocephalic, mucous membranes moist CV: Regular rate and rhythm, S1, S2 Lungs: Clear to auscultation bilaterally, no rales or crackles noted, no wheezes, good air entry Abdomen: Soft, TTP, inc c/d/i Extremities: Normal to inspection Skin: No rashes noted, no lesions or wounds seen Psych: Euthymic, normal affect Objective Data Vital Signs Vital Signs: Vital Signs - 24 hr 05/29/23 09:41 05/29/23 12:23 05/29/23 12:35 Temperature 97.5 F L Pulse Rate 86 75 74 Respiratory Rate 18 18 16 Blood Pressure 157/69 H 164/74 H 177/86 H Pulse Oximetry 100 100 100 Oxygen Delivery Room Air Simple Face Mask Simple Face Mask Oxygen Flow Rate 8 8 05/29/23 12:50 05/29/23 13:05 05/29/23 13:20 Temperature Pulse Rate 77 75 81 Respiratory Rate 16 20 16 Blood Pressure 174/84 H 171/87 H 171/87 H Pulse Oximetry 94 94 91 Oxygen Delivery Room Air Room Air Room Air Oxygen Flow Rate 05/29/23 13:35 05/29/23 14:30 05/29/23 16:00 Temperature Pulse Rate 78 94 Respiratory Rate 16 Blood Pressure 168/81 H Pulse Oximetry 100 100 Oxygen Delivery Room Air Nasal Cannula Oxygen Flow Rate 2 05/29/23 19:22 05/29/23 20:56 05/29/23 20:00 Temperature 97.9 F Pulse Rate 92 92 95 Respiratory Rate 18 Blood Pressure 166/82 H Pulse Oximetry 95 Oxygen Delivery Oxygen Flow Rate 05/29/23 23:22 05/30/23 00:00 05/30/23 04:00 Temperature 97.4 F L Pulse Rate 84 85 88 Respiratory Rate 18 Blood Pressure 165/85 H Pulse Oximetry 97 Oxygen Delivery Oxygen Flow Rate 05/30/23 03:22 05/30/23 09:14 05/30/23 09:16 Temperature 98 F Pulse Rate 88 87 85 Respiratory Rate 18 Blood Pressure 154/62 H 156/64 H Pulse Oximetry 98 100 Oxygen Delivery Oxygen Flow Rate Intake/Output Intake/Output: Intake & Output 05/27/23 05/28/23 05/29/23 05/30/23 23:59 23:59 23:59 23:59 Intake Total 4614 368 6746 340 Output Total 650 250 Balance 5369 626 7024 90 Meds/Results Medications: Active Medications Generic Name Dose Route Start Last Admin Trade Name Freq PRN Reason Stop Dose Admin
--- NOTE | 2023-05-30 10:17 | PM.PNGS ---
Progress Note: A&P Assessment and Plan (1) Colonic mass: Code(s): K63.89 - Other specified diseases of intestine Status: Acute Assessment and Plan: Advance to full liquids, decrease IV fluids Will try to remove Osorio catheter postop day 2 per patient request Encouraged getting up to chair/increasing activity and ambulating Pathology pending (2) Symptomatic anemia: Code(s): D64.9 - Anemia, unspecified Status: Acute Assessment and Plan: Hgb stable at 8.8 today, continue to monitor Plan I have discussed the patient's case and plan of care with Dr. Naik. Subjective Subjective Date/Time Seen: 05/30/23 10:17 Post Op day: 1 ([facility] right hemicolectomy with mobilization of hepatic flexure) Patient reports: tolerating liquids well, no flatus, no bowel movement and afebrile Interval history: Patient doing well postop day 1. She has pain at her incisions with movement, but is otherwise comfortable at rest. Denies nausea or vomiting. Her postop pain is well controlled this morning with the oral analgesics. She has been up to the chair and tolerated this well. She is still on 1 liter of oxygen, which I asked the nurse to try weaning her off. She still has her Osorio catheter in place and is requesting to keep this in place until tomorrow. We discussed the risks of keeping the catheter in place longer, she understands. Review of Systems Review of Systems: All systems reviewed & are unremarkable except as noted in HPI and below Constitutional: Constitutional: Reports as per HPI, Reports no additional constitutional complaints, Denies chills and Denies fever(s) ENT: Denies headache(s) Cardiovascular: Cardiovascular: Reports no additional cardiovascular complaints, Denies chest pain and Denies leg edema Respiratory: Respiratory: Reports no additional respiratory complaints, Denies cough and Denies dyspnea Gastrointestinal: Gastrointestinal: Reports as per HPI and Reports no additional gastrointestinal complaints Neurologic: Reports system reviewed and no additional complaints, except as documented, Denies Abnormal speech present, Denies headache(s) and Denies focal weakness Exam Const: General: comfortable and no acute distress GI: Inspection: non-distended and incision (incisions dry and intact) GI Palp: Yes Soft to palpation, Yes Tenderness to palpation present (GI) (incisional) and No Guarding due to palpation present (GI) Auscultation: Hypoactive bowel sounds present Neuro: General: moves all extremities and no focal motor deficits Extrem: General: no calf tenderness and no edema Psych: Mental Status: mental status grossly normal Insight: Good insight present (Psych) Objective Data Vital Signs Vital Signs: Vital Signs - 24 hr 05/29/23 12:23 05/29/23 12:35 05/29/23 12:50 Temperature Pulse Rate 75 74 77 Respiratory Rate 18 16 16 Blood Pressure 164/74 H 177/86 H 174/84 H Pulse Oximetry 100 100 94 Oxygen Delivery Simple Face Mask Simple Face Mask Room Air Oxygen Flow Rate 8 8 05/29/23 13:05 05/29/23 13:20 05/29/23 13:35 Temperature Pulse Rate 75 81 78 Respiratory Rate 20 16 16 Blood Pressure 171/87 H 171/87 H 168/81 H Pulse Oximetry 94 91 100 Oxygen Delivery Room Air Room Air Room Air Oxygen Flow Rate 05/29/23 14:30 05/29/23 16:00 05/29/23 19:22 Temperature 97.9 F Pulse Rate 94 92 Respiratory Rate 18 Blood Pressure 166/82 H Pulse Oximetry 100 95 Oxygen Delivery Nasal Cannula Oxygen Flow Rate 2 05/29/23 20:56 05/29/23 20:00 05/29/23 23:22 Temperature 97.4 F L Pulse Rate 92 95 84 Respiratory Rate 18 Blood Pressure 165/85 H Pulse Oximetry 97 Oxygen Delivery Oxygen Flow Rate 05/30/23 00:00 05/30/23 04:00 05/30/23 03:22 Temperature 98 F Pulse Rate 85 88 88 Respiratory Rate 18 Blood Pressure 154/62 H Pulse Oximetry 98 Oxygen Delivery Oxygen Flow Rate 05/30/23 09:14 05/30/23 09:16 Temperat
[2023-05-30] MEDS: LACTATED RINGERS 1,000 ML 50 ML IV CONT (12:50)
[2023-05-30] MEDS: CYANOCOBALAMIN INJ 1,000 MCG/ML VIAL 1000 MCG IM (12:51)
--- NOTE | 2023-05-30 13:07 | WPDGIPROGNO ---
Progress Note: A&P Assessment and Plan (1) Colonic mass: Code(s): K63.89 - Other specified diseases of intestine Status: Acute Assessment and Plan: Right-sided colon removed surgically yesterday. Patient healing well. Await final pathology. (2) RIMMA (iron deficiency anemia): Code(s): D50.9 - Iron deficiency anemia, unspecified Status: Acute Assessment and Plan: Patient may need iron replacement after she has healed enough to resume oral intake. Subjective Date/time seen: 05/30/23 13:07 Interval history: Patient alert and relatively comfortable. Surgical findings noted. Patient ambulating in room today. Review of Systems Review of Systems: Review of systems noncontributory. Exam Narrative: Physical exam reveals patient be alert comfortable. Bowel sounds diminished but soft nontender. Incisional tenderness identified. Objective Data Vital Signs Vital Signs: Vital Signs - 24 hr 05/29/23 13:20 05/29/23 13:35 05/29/23 14:30 Temperature Pulse Rate 81 78 Respiratory Rate 16 16 Blood Pressure 171/87 H 168/81 H Pulse Oximetry 91 100 100 Oxygen Delivery Room Air Room Air Nasal Cannula Oxygen Flow Rate 2 05/29/23 16:00 05/29/23 19:22 05/29/23 20:56 Temperature 97.9 F Pulse Rate 94 92 92 Respiratory Rate 18 Blood Pressure 166/82 H Pulse Oximetry 95 Oxygen Delivery Oxygen Flow Rate 05/29/23 20:00 05/29/23 23:22 05/30/23 00:00 Temperature 97.4 F L Pulse Rate 95 84 85 Respiratory Rate 18 Blood Pressure 165/85 H Pulse Oximetry 97 Oxygen Delivery Oxygen Flow Rate 05/30/23 04:00 05/30/23 03:22 05/30/23 09:14 Temperature 98 F Pulse Rate 88 88 87 Respiratory Rate 18 Blood Pressure 154/62 H 156/64 H Pulse Oximetry 98 100 Oxygen Delivery Oxygen Flow Rate 05/30/23 09:16 05/30/23 09:15 Temperature Pulse Rate 85 Respiratory Rate Blood Pressure Pulse Oximetry Oxygen Delivery Room Air Oxygen Flow Rate Intake/Output Intake/Output: Intake & Output 05/27/23 05/28/23 05/29/23 05/30/23 23:59 23:59 23:59 23:59 Intake Total 5054 669 6183 1460 Output Total 650 250 Balance 4948 995 4911 1210 Meds/Results Medications: Active Medications Generic Name Dose Route Start Last Admin Trade Name Freq PRN Reason Stop Dose Admin Acetaminophen 650 mg 05/30/23 10:18 Acetaminophen 325 Mg Tablet PO Q6H PRN Mild Pain (1-3) or Fever Hydrocodone Bitart/Acetaminophen 1 tab 05/30/23 10:19 Hydrocodone/Acetaminophen (*Crx) 5-325 Mg Tablet PO Q4H PRN Pain Rated 7-10 Carvedilol 6.25 mg 05/29/23 21:00 05/30/23 09:16 Carvedilol 6.25 Mg Tablet BY MOUTH 6.25 mg Q12HR ZINA Administration Cyanocobalamin 1,000 mcg 05/30/23 09:50 05/30/23 12:51 Cyanocobalamin Inj 1,000 Mcg/Ml Vial IM 1,000 mcg Tu@0900 ZINA Administration Enoxaparin Sodium 40 mg 05/30/23 09:00 05/30/23 09:19 Enoxaparin 40 Mg/0.4 Ml Syringe SUB-Q 40 mg DAILY ZINA Administration Hydrochlorothiazide 25 mg 05/30/23 09:00 05/30/23 09:16 Hydrochlorothiazide 25 Mg Tablet BY MOUTH 25 mg DAILY ZINA Administration Lactated Ringer's 1,000 mls @ 50 mls/hr 05/29/23 13:37 05/30/23 12:50 Lr - Lactated Ringers Iv IV CONT 50 mls/hr .Q20H ZINA Administration Losartan Potassium 25 mg 05/30/23 09:00 05/30/23 09:16 Losartan Potassium 25 Mg Tablet PO 25 mg DAILY ZINA Administration Morphine Sulfate 2 mg 05/30/23 10:19 Morphine Sulfate (*Crx) 2 Mg/Ml Inj IV PUSH Q2H PRN Pain Rated 7-10 Naloxone HCl 0.1 mg 05/29/23 13:37 Naloxone Hcl 0.4 Mg/Ml Vial IV PUSH Q2M PRN Opiate Reversal Ondansetron HCl 4 mg 05/25/23 15:29 Ondansetron Inj 4 Mg/2 Ml Vial IV PUSH Q4H PRN Nausea Pantoprazole Sodium 40 mg 05/25/23 17:00 05/30/23 09:18 Pantoprazole Sodium Iv 40 Mg Vial IV PUSH 40 mg BID ZINA Administrati
[2023-05-30] MEDS: TIZANIDINE HCL 4 MG TABLET PO (17:08)
[2023-05-31] VITALS (11 sets, daily range): BP systolic 121–171; BP diastolic 55–68; PULSE 72–98; RESP 14–18; TEMP 36.6–37.6; O2SAT 95–97
[2023-05-31 04:39] LABS: Hematocrit 24.9 % (37.0-47.0); Hemoglobin 7.4 g/dL (12.0-15.0); Immature Platelet Fraction Pct 5.2 % (0.9-11.2); Mean Corpuscular HGB Conc 29.7 g/dl (32-36); Mean Corpuscular Hemoglobin 21.6 pg (26-34); Mean Corpuscular Volume 72.8 fl (80-100); Mean Platelet Volume 9.4 fl (7.4-10.4); Platelet Count Result 215 k/mm3 (150-375); Red Blood Count 3.42 M/mm3 (4.2-5.4); White Blood Count 13.7 K/mm3 (4.5-10.0)
[2023-05-31 04:58] LABS: Anion Gap 6 mmol/L (8-16); Blood Urea Nitrogen 16 mg/dL (7-17); Calcium 8.5 mg/dL (8.4-10.2); Carbon Dioxide 25 mmol/L (22-30); Chloride 101 mmol/L (98-107); Estimated CRCL calculation 24 ml/min; Estimated Glomerular Filt Rate 44; Glucose 95 mg/dL (65-110); Potassium 3.6 mmol/L (3.4-5.0); Sodium 132 mmol/L (137-145)
[2023-05-31] MEDS: HYDROcodone/acetaminophen (*CRX) 5-325 MG TABLET 1 TAB PO ×2 (05:39→18:47)
[2023-05-31] MEDS: LACTATED RINGERS 1,000 ML 50 ML IV CONT (08:02)
[2023-05-31] MEDS: ENOXAPARIN 40 MG/0.4 ML SYRINGE SUB-Q (09:07)
[2023-05-31] MEDS: PANTOPRAZOLE SODIUM IV 40 MG VIAL IV PUSH ×2 (09:07→16:29)
[2023-05-31] MEDS: hydroCHLOROthiazide 25 MG TABLET BY MOUTH (09:08)
[2023-05-31] MEDS: LOSARTAN POTASSIUM 25 MG TABLET PO (09:08)
[2023-05-31] MEDS: carvediloL 6.25 MG TABLET BY MOUTH ×2 (09:08→20:45)
[2023-05-31] MEDS: TIMOLOL MALEATE 0.5% OP SOLN 5 ML BOTTLE 1 DROP RIGHT EYE ×2 (09:08→20:45)
--- NOTE | 2023-05-31 13:21 | PM.PNGS ---
Progress Note: A&P Assessment and Plan (1) Colonic mass: Code(s): K63.89 - Other specified diseases of intestine Status: Acute Assessment and Plan: exam benign, +bowel fxn, ADAT, OOB/IS, follow labs, await path Subjective Subjective Date/Time Seen: 05/31/23 13:21 Interval history: feels ok, some dizziness that has been ongoing, reports incisional pain is improving, +bowel fxn, aries clears Review of Systems Review of Systems: All systems reviewed & are unremarkable except as noted in HPI and below Exam Const: General: cooperative, comfortable and no acute distress Resp: Auscultation: clear to auscultation bilaterally Cardio: Rate: regular rate Rhythm: regular rhythm GI: Inspection: normal to inspection, non-distended and incision GI Palp: Yes abdominal tenderness, Yes Soft to palpation, Yes Tenderness to palpation present (GI), No Guarding due to palpation present (GI) and No Rigid due to palpation Objective Data Vital Signs Vital Signs: Vital Signs - 24 hr 05/30/23 16:00 05/30/23 21:07 05/30/23 21:15 Temperature 36.3 C L Pulse Rate 94 80 80 Respiratory Rate 18 Blood Pressure 80/46 L Pulse Oximetry 96 Oxygen Delivery 05/30/23 20:00 05/30/23 20:00 05/31/23 00:00 Temperature Pulse Rate 84 80 74 Respiratory Rate 18 Blood Pressure Pulse Oximetry 96 Oxygen Delivery Room Air 05/31/23 04:00 05/31/23 07:45 05/31/23 09:08 Temperature 36.8 C Pulse Rate 89 77 72 Respiratory Rate 16 Blood Pressure 121/55 L Pulse Oximetry 97 Oxygen Delivery 05/31/23 08:00 05/31/23 08:00 05/31/23 12:04 Temperature Pulse Rate 77 82 Respiratory Rate 16 Blood Pressure Pulse Oximetry 97 Oxygen Delivery Room Air Intake/Output Intake/Output: Intake & Output 05/28/23 05/29/23 05/30/23 05/31/23 23:59 23:59 23:59 23:59 Intake Total 238 2090 2100 1240 Output Total 650 250 Balance 238 1440 1850 1240 Meds/Results Medications: Active Medications Generic Name Dose Route Start Last Admin Trade Name Freq PRN Reason Stop Dose Admin Acetaminophen 650 mg 05/30/23 10:18 Acetaminophen 325 Mg Tablet PO Q6H PRN Mild Pain (1-3) or Fever Hydrocodone Bitart/Acetaminophen 1 tab 05/30/23 10:19 05/31/23 05:39 Hydrocodone/Acetaminophen (*Crx) 5-325 Mg Tablet PO 1 tab Q4H PRN Administration Pain Rated 7-10 Carvedilol 6.25 mg 05/29/23 21:00 05/31/23 09:08 Carvedilol 6.25 Mg Tablet BY MOUTH 6.25 mg Q12HR ZINA Administration Cyanocobalamin 1,000 mcg 05/30/23 09:50 05/30/23 12:51 Cyanocobalamin Inj 1,000 Mcg/Ml Vial IM 1,000 mcg Tu@0900 ZINA Administration Enoxaparin Sodium 40 mg 05/30/23 09:00 05/31/23 09:07 Enoxaparin 40 Mg/0.4 Ml Syringe SUB-Q 40 mg DAILY ZINA Administration Hydrochlorothiazide 25 mg 05/30/23 09:00 05/31/23 09:08 Hydrochlorothiazide 25 Mg Tablet BY MOUTH 25 mg DAILY ZINA Administration Lactated Ringer's 1,000 mls @ 50 mls/hr 05/29/23 13:37 05/31/23 08:02 Lr - Lactated Ringers Iv IV CONT 50 mls/hr .Q20H ZINA Administration Losartan Potassium 25 mg 05/30/23 09:00 05/31/23 09:08 Losartan Potassium 25 Mg Tablet PO 25 mg DAILY ZINA Administration Morphine Sulfate 2 mg 05/30/23 10:19 Morphine Sulfate (*Crx) 2 Mg/Ml Inj IV PUSH Q2H PRN Pain Rated 7-10 Naloxone HCl 0.1 mg 05/29/23 13:37 Naloxone Hcl 0.4 Mg/Ml Vial IV PUSH Q2M PRN Opiate Reversal Ondansetron HCl 4 mg 05/25/23 15:29 Ondansetron Inj 4 Mg/2 Ml Vial IV PUSH Q4H PRN Nausea Pantoprazole Sodium 40 mg 05/25/23 17:00 05/31/23 09:07 Pantoprazole Sodium Iv 40 Mg Vial IV PUSH 40 mg BID ZINA Administration Timolol Maleate 1 drop 05/26/23 09:00 05/31/23 09:08 Timolol Maleate 0.5% Op Soln 5 Ml Bottle RIGHT EYE 1 drop Q12HR ZINA Administration Tizanidine HCl 4 mg 05/29/23 13:43 05/30/23 17:08 Tizanidine Hcl 4 Mg Tabl
--- NOTE | 2023-05-31 14:08 | PM.IMPN ---
Progress Note: A&P Assessment and Plan (1) Symptomatic anemia: Code(s): D64.9 - Anemia, unspecified Status: Acute Assessment and Plan: Patient presents with complaints of dizziness, lightheadedness and near syncope. Hemoglobin was 5.3. She was guaiac positive in the ED. B12 was low c/w B12 deficiency. Iron studies consistent with iron deficiency. Patient was transfused 2 units of packed red blood cells on 05/25/2023. EGD 05/26 was normal. Colonoscopy 05/27 showing nonobstructing large fungating, malignant appearing, ulcerated mass proximal ascending colon. There was stigmata bleeding from the mass. Patient had hand assisted laparoscopic right hemicolectomy with mobilization of hepatic flexure on 05/29/2023. Hemoglobin climbed to 9.4 but has drifted down to 7.4 today. Anemia related to the colonic mass. Continue to trend hemoglobin and transfuse if less than 7. Iron at discharge (2) Colon cancer: Code(s): C18.9 - Malignant neoplasm of colon, unspecified Status: Acute Assessment and Plan: As above. Pathology showing adenocarcinoma that is moderately differentiated and that invades into the muscularis propria. Margins were negative for invasive carcinoma. No positive lymph nodes for tumor. Staging was pT2 pN0 pM. Will need followup once she heals (3) Essential hypertension: Code(s): I10 - Essential (primary) hypertension Status: Acute Assessment and Plan: Patient's blood pressure was reviewed on 05/31 Blood pressure soft at times Will stop HCTZ. Check orthostatic VS (4) B12 deficiency: Code(s): E53.8 - Deficiency of other specified B group vitamins Status: Acute Assessment and Plan: B12 level low at 230 on admission. B12 injections ordered. Monitor as outpatient Add oral B12 now (5) Fecal occult blood test positive: Code(s): R19.5 - Other fecal abnormalities Status: Acute Assessment and Plan: As above Plan DVT prophylaxis with Lovenox GI prophylaxis with PPI Code status full code Subjective Date/time seen: 05/31/23 14:08 Interval history: 83-year-old female with history of hypertension, hyperlipidemia is presenting with lightheadedness and dizziness and found to have a hemoglobin of 5 and is currently being worked up for anemia. Status post 2 units packed red blood cells 05/25. Hemoglobin 9.4 after transfusion 05/26. Colonoscopy showing ascending colon mass. To OR 05/29 hemicolectomy. Assuming care. Chart reviewed. Patient feels weak and lightheaded at times. Pain is well controlled. Complains of dry mouth. No chest pain. No shortness of breath. No nausea or vomiting. Tolerating current diet. Exam Narrative: AF 98.2 121/55 82 16 97% ra Gen - NARD Chest - CTA bilaterally, nml RR CV -regular with occasional extra beats. Telemetry showing PACs. Abd -soft. Abdominal brace in place. Ext - No pedal edema Psych - Nml mood and affect Skin - Warm and dry Objective Data Vital Signs Vital Signs: Vital Signs - 24 hr 05/30/23 16:00 05/30/23 21:07 05/30/23 21:15 Temperature 97.4 F L Pulse Rate 94 80 80 Respiratory Rate 18 Blood Pressure 80/46 L Pulse Oximetry 96 Oxygen Delivery 05/30/23 20:00 05/30/23 20:00 05/31/23 00:00 Temperature Pulse Rate 84 80 74 Respiratory Rate 18 Blood Pressure Pulse Oximetry 96 Oxygen Delivery Room Air 05/31/23 04:00 05/31/23 07:45 05/31/23 09:08 Temperature 98.2 F Pulse Rate 89 77 72 Respiratory Rate 16 Blood Pressure 121/55 L Pulse Oximetry 97 Oxygen Delivery 05/31/23 08:00 05/31/23 08:00 05/31/23 12:04 Temperature Pulse Rate 77 82 Respiratory Rate 16 Blood Pressure Pulse Oximetry 97 Oxygen Delivery Room Air Intake/Output Intake/Output: Intake & Output 05/28/23 05/29/23 05/30/23 05/31/23 23:59 23:59 23:59 23:59 Intake Total 238 2090 2100 1240 Output Total 65
[2023-06-01] VITALS (17 sets, daily range): BP systolic 142–184; BP diastolic 66–87; PULSE 85–99; RESP 15–16; TEMP 36.8–37; O2SAT 92–100
[2023-06-01] MEDS: LACTATED RINGERS 1,000 ML 50 ML IV CONT (03:56)
[2023-06-01 07:59] LABS: Chloride 104 mmol/L (98-107)
[2023-06-01 08:05] LABS: Hematocrit 28.9 % (37.0-47.0); Hemoglobin 8.7 g/dL (12.0-15.0); Immature Platelet Fraction Pct 3.3 % (0.9-11.2); Mean Corpuscular HGB Conc 30.1 g/dl (32-36); Mean Corpuscular Hemoglobin 21.6 pg (26-34); Mean Corpuscular Volume 71.7 fl (80-100); Mean Platelet Volume 9.5 fl (7.4-10.4); Platelet Count Result 256 k/mm3 (150-375); Red Blood Count 4.03 M/mm3 (4.2-5.4); White Blood Count 11.8 K/mm3 (4.5-10.0)
[2023-06-01 08:07] LABS: Anion Gap 5 mmol/L (8-16); Blood Urea Nitrogen 12 mg/dL (7-17); Calcium 9.1 mg/dL (8.4-10.2); Carbon Dioxide 28 mmol/L (22-30); Estimated CRCL calculation 40 ml/min; Estimated Glomerular Filt Rate > 60; Glucose 94 mg/dL (65-110); Potassium 3.2 mmol/L (3.4-5.0); Sodium 137 mmol/L (137-145)
[2023-06-01] MEDS: carvediloL 6.25 MG TABLET BY MOUTH ×2 (08:15→21:13)
[2023-06-01] MEDS: LOSARTAN POTASSIUM 25 MG TABLET PO (08:15)
[2023-06-01] MEDS: HYDROcodone/acetaminophen (*CRX) 5-325 MG TABLET 1 TAB PO ×2 (08:15→21:13)
[2023-06-01] MEDS: TIMOLOL MALEATE 0.5% OP SOLN 5 ML BOTTLE 1 DROP RIGHT EYE ×2 (08:15→21:16)
[2023-06-01] MEDS: CYANOCOBALAMIN 1,000 MCG TABLET 1000 MCG PO (08:16)
[2023-06-01] MEDS: ENOXAPARIN 30 MG/0.3 ML SYRINGE SUB-Q (08:17)
[2023-06-01] MEDS: PANTOPRAZOLE SODIUM IV 40 MG VIAL IV PUSH ×2 (08:17→16:26)
--- NOTE | 2023-06-01 10:44 | PM.PNGS ---
Progress Note: A&P Assessment and Plan (1) Colon cancer: Code(s): C18.9 - Malignant neoplasm of colon, unspecified Status: Acute Assessment and Plan: doing well, cont routine postop care, path reviewed, encourage po intake, OOB/IS Subjective Subjective Date/Time Seen: 06/01/23 10:44 Interval history: feels ok, poor appetite, incisional soreness, +bowel fxn Review of Systems Review of Systems: All systems reviewed & are unremarkable except as noted in HPI and below Exam Const: General: cooperative, comfortable and no acute distress Resp: Auscultation: clear to auscultation bilaterally Cardio: Rate: regular rate Rhythm: regular rhythm GI: Inspection: normal to inspection, distended and incision GI Palp: Yes abdominal tenderness, Yes Soft to palpation, Yes Tenderness to palpation present (GI), No Guarding due to palpation present (GI) and No Rigid due to palpation Objective Data Vital Signs Vital Signs: Vital Signs - 24 hr 05/31/23 12:04 05/31/23 14:00 05/31/23 16:00 Temperature 36.6 C Pulse Rate 82 90 95 Respiratory Rate 14 Blood Pressure 130/60 Pulse Oximetry 97 Oxygen Delivery 05/31/23 19:53 05/31/23 20:45 05/31/23 20:00 Temperature 37.6 C Pulse Rate 98 95 98 Respiratory Rate 18 Blood Pressure 171/68 H Pulse Oximetry 95 Oxygen Delivery 05/31/23 20:00 06/01/23 00:00 06/01/23 04:00 Temperature Pulse Rate 95 87 92 Respiratory Rate 18 Blood Pressure Pulse Oximetry 95 Oxygen Delivery Room Air 06/01/23 05:36 06/01/23 08:15 06/01/23 08:17 Temperature 37.0 C Pulse Rate 90 90 Respiratory Rate 15 16 Blood Pressure 167/66 H Pulse Oximetry 94 94 Oxygen Delivery Room Air 06/01/23 08:30 Temperature Pulse Rate 90 Respiratory Rate 16 Blood Pressure Pulse Oximetry 94 Oxygen Delivery Room Air Intake/Output Intake/Output: Intake & Output 05/29/23 05/30/23 05/31/23 06/01/23 23:59 23:59 23:59 23:59 Intake Total 2090 2100 1760 1000 Output Total 951 738 0798 1000 Balance 1440 1850 360 0 Meds/Results Medications: Active Medications Generic Name Dose Route Start Last Admin Trade Name Freq PRN Reason Stop Dose Admin Acetaminophen 650 mg 05/30/23 10:18 Acetaminophen 325 Mg Tablet PO Q6H PRN Mild Pain (1-3) or Fever Hydrocodone Bitart/Acetaminophen 1 tab 05/30/23 10:19 06/01/23 08:15 Hydrocodone/Acetaminophen (*Crx) 5-325 Mg Tablet PO 1 tab Q4H PRN Administration Pain Rated 7-10 Carvedilol 6.25 mg 05/29/23 21:00 06/01/23 08:15 Carvedilol 6.25 Mg Tablet BY MOUTH 6.25 mg Q12HR ZINA Administration Cyanocobalamin 1,000 mcg 05/30/23 09:50 05/30/23 12:51 Cyanocobalamin Inj 1,000 Mcg/Ml Vial IM 1,000 mcg Tu@0900 ZINA Administration Cyanocobalamin 1,000 mcg 06/01/23 09:00 06/01/23 08:16 Cyanocobalamin 1,000 Mcg Tablet PO 1,000 mcg QAM ZINA Administration Enoxaparin Sodium 30 mg 06/01/23 09:00 06/01/23 08:17 Enoxaparin 30 Mg/0.3 Ml Syringe SUB-Q 30 mg DAILY ZINA Administration Lactated Ringer's 1,000 mls @ 50 mls/hr 05/29/23 13:37 06/01/23 03:56 Lr - Lactated Ringers Iv IV CONT 50 mls/hr .Q20H ZINA Administration Losartan Potassium 25 mg 05/30/23 09:00 06/01/23 08:15 Losartan Potassium 25 Mg Tablet PO 25 mg DAILY ZINA Administration Morphine Sulfate 2 mg 05/30/23 10:19 Morphine Sulfate (*Crx) 2 Mg/Ml Inj IV PUSH Q2H PRN Pain Rated 7-10 Naloxone HCl 0.1 mg 05/29/23 13:37 Naloxone Hcl 0.4 Mg/Ml Vial IV PUSH Q2M PRN Opiate Reversal Ondansetron HCl 4 mg 05/25/23 15:29 Ondansetron Inj 4 Mg/2 Ml Vial IV PUSH Q4H PRN Nausea Pantoprazole Sodium 40 mg 05/25/23 17:00 06/01/23 08:17 Pantoprazole Sodium Iv 40 Mg Vial IV PUSH 40 mg BID ZINA Administration Timolol Maleate 1 drop 05/26/23 09:00 06/01/23 08:15 Timolol Maleate 0.5% Op Soln 5 Ml Bottle RIGHT EYE 1 drop
--- NOTE | 2023-06-01 10:58 | PC.NURSE ---
On 06/01/23, the student, [Angela Munoz], provided care and completed [facility] documentation on this patient. I have reviewed the student's documentation and agree with the findings.
--- NOTE | 2023-06-01 14:41 | PM.IMPN ---
Progress Note: A&P Assessment and Plan (1) Symptomatic anemia: Code(s): D64.9 - Anemia, unspecified Status: Acute Assessment and Plan: Patient presents with complaints of dizziness, lightheadedness and near syncope. Hemoglobin was 5.3. She was guaiac positive in the ED. B12 was low c/w B12 deficiency. Iron studies consistent with iron deficiency. Patient was transfused 2 units of packed red blood cells on 05/25/2023. EGD 05/26 was normal. Colonoscopy 05/27 showing nonobstructing large fungating, malignant appearing, ulcerated mass proximal ascending colon. There was stigmata bleeding from the mass. Patient had hand assisted laparoscopic right hemicolectomy with mobilization of hepatic flexure on 05/29/2023. Hemoglobin climbed to 9.4 but has drifted down to 7-8 range Anemia related to the colonic mass. Continue to trend hemoglobin and transfuse if less than 7. Add iron (2) Colon cancer: Code(s): C18.9 - Malignant neoplasm of colon, unspecified Status: Acute Assessment and Plan: As above. Pathology showing adenocarcinoma that is moderately differentiated and that invades into the muscularis propria. Margins were negative for invasive carcinoma. No positive lymph nodes for tumor. Staging was pT2 pN0 pM. Will need followup once she heals Okay to discharge when okay with surgery (3) Essential hypertension: Code(s): I10 - Essential (primary) hypertension Status: Acute Assessment and Plan: Patient's blood pressure was reviewed on 06/01 Blood pressure elevated at times HCTZ stopped Orthostatic VS showing she is not orthostatic. Follow (4) B12 deficiency: Code(s): E53.8 - Deficiency of other specified B group vitamins Status: Acute Assessment and Plan: B12 level low at 230 on admission. B12 injections ordered. Monitor as outpatient Continue oral B12 now (5) Fecal occult blood test positive: Code(s): R19.5 - Other fecal abnormalities Status: Acute Assessment and Plan: As above (6) Dizziness: Code(s): R42 - Dizziness and giddiness Status: Acute Assessment and Plan: Patient continues to complain of dizziness. Initially felt related to her anemia. Now complains of room-spinning. Hx is vague. Will check CT brain to exclude occult CVA Plan DVT prophylaxis with Lovenox GI prophylaxis with PPI Code status full code Subjective Date/time seen: 06/01/23 14:41 Interval history: 83-year-old female with history of hypertension, hyperlipidemia is presenting with lightheadedness and dizziness and found to have a hemoglobin of 5 and is currently being worked up for anemia. Status post 2 units packed red blood cells 05/25. Hemoglobin 9.4 after transfusion 05/26. Colonoscopy showing ascending colon mass. To OR 05/29 hemicolectomy. Feels bad. Complains of abdominal pain but controlled with current analgesics. No BM today but +flatus. Complains of lack of taste and burning on her tongue but this has been going on for months. She also complains of dizziness and now states the room spins and she feels weak. She is not walking much but is up to the chair. Not eating much Exam Narrative: AF 98.3 142/78 85 16 100% ra Gen - NARD Chest - CTA bilaterally, nml RR CV -regular with occasional extra beats. Telemetry showing PACs. Abd -soft. Abdominal brace in place. Ext - No pedal edema Neuro - no focal weakness. Psych - Nml mood and affect Skin - Warm and dry Objective Data Vital Signs Vital Signs: Vital Signs - 24 hr 05/31/23 16:00 05/31/23 19:53 05/31/23 20:45 Temperature 99.6 F Pulse Rate 95 98 95 Respiratory Rate 18 Blood Pressure 171/68 H Pulse Oximetry 95 Oxygen Delivery 05/31/23 20:00 05/31/23 20:00 06/01/23 00:00 Temperature Pulse Rate 98 95 87 Respiratory Rate 18 Blood Pressure Pulse Oximetry 95 Oxygen Delivery Room Air 06/01/23 0
[2023-06-01] MEDS: IRON SUCROSE COMPLEX 100 MG in SODIUM CHLORIDE 0.9% IV 50 ML 220 MG IVPB (16:30)
[2023-06-02] VITALS (12 sets, daily range): BP systolic 132–158; BP diastolic 56–69; PULSE 74–95; RESP 16–18; TEMP 36.7; O2SAT 95–96
[2023-06-02] MEDS: LACTATED RINGERS 1,000 ML 50 ML IV CONT (05:55)
[2023-06-02] MEDS: FERROUS SULFATE 325 MG TABLET DR PO (09:11)
[2023-06-02] MEDS: LOSARTAN POTASSIUM 25 MG TABLET PO (09:11)
[2023-06-02] MEDS: CYANOCOBALAMIN 1,000 MCG TABLET 1000 MCG PO (09:11)
[2023-06-02] MEDS: IRON SUCROSE COMPLEX 100 MG in SODIUM CHLORIDE 0.9% IV 50 ML 220 MG IVPB (09:11)
[2023-06-02] MEDS: carvediloL 6.25 MG TABLET BY MOUTH (09:11)
[2023-06-02] MEDS: PANTOPRAZOLE SODIUM IV 40 MG VIAL IV PUSH (09:11)
[2023-06-02] MEDS: ENOXAPARIN 40 MG/0.4 ML SYRINGE SUB-Q (09:11)
[2023-06-02] MEDS: TIMOLOL MALEATE 0.5% OP SOLN 5 ML BOTTLE 1 DROP RIGHT EYE (09:12)
[2023-06-02] MEDS: HYDROcodone/acetaminophen (*CRX) 5-325 MG TABLET 1 TAB PO (09:21)
--- NOTE | 2023-06-02 10:07 | PM.PNGS ---
Progress Note: A&P Assessment and Plan (1) Colon cancer: Code(s): C18.9 - Malignant neoplasm of colon, unspecified Status: Acute Assessment and Plan: doing well, cont routine postop care, will recheck labs this am, if looks ok, then she can probably go home today from surgical standpoint, encourage OOB/IS, po intake (2) Dizziness: Code(s): R42 - Dizziness and giddiness Status: Acute Assessment and Plan: chronic issue, CT head negative Subjective Subjective Date/Time Seen: 06/02/23 10:07 Interval history: feels ok today, no abd pain, +bowel fxn, still quite dizzy Review of Systems Review of Systems: All systems reviewed & are unremarkable except as noted in HPI and below Exam Const: General: cooperative, comfortable and no acute distress Resp: Auscultation: clear to auscultation bilaterally Cardio: Rate: regular rate Rhythm: regular rhythm GI: Inspection: normal to inspection, non-distended and incision GI Palp: Yes abdominal tenderness, Yes Soft to palpation, Yes Tenderness to palpation present (GI), No Guarding due to palpation present (GI) and No Rigid due to palpation Objective Data Vital Signs Vital Signs: Vital Signs - 24 hr 06/01/23 12:00 06/01/23 12:27 06/01/23 12:27 Temperature Pulse Rate 88 90 90 Respiratory Rate Blood Pressure 159/76 H 182/87 H 173/87 H Pulse Oximetry Oxygen Delivery 06/01/23 12:27 06/01/23 14:19 06/01/23 14:24 Temperature 36.8 C Pulse Rate 91 85 Respiratory Rate 16 Blood Pressure 142/78 H Pulse Oximetry 100 Oxygen Delivery 06/01/23 16:00 06/01/23 21:13 06/01/23 22:00 Temperature 37.0 C Pulse Rate 92 97 96 Respiratory Rate 16 Blood Pressure 184/83 H Pulse Oximetry 92 Oxygen Delivery 06/01/23 20:00 06/02/23 03:54 06/01/23 20:00 Temperature 36.7 C Pulse Rate 82 99 Respiratory Rate 18 Blood Pressure 147/69 H Pulse Oximetry 95 Oxygen Delivery Room Air 06/02/23 00:00 06/02/23 04:00 06/01/23 19:39 Temperature Pulse Rate 85 86 Respiratory Rate Blood Pressure 168/86 H Pulse Oximetry Oxygen Delivery 06/01/23 19:35 06/02/23 09:11 06/02/23 09:14 Temperature Pulse Rate 99 74 87 Respiratory Rate 16 16 Blood Pressure 153/56 H Pulse Oximetry 100 96 Oxygen Delivery Intake/Output Intake/Output: Intake & Output 05/30/23 05/31/23 06/01/23 06/02/23 23:59 23:59 23:59 23:59 Intake Total 2100 1760 1895 1240 Output Total 250 1400 1000 200 Balance 1850 625 744 3196 Meds/Results Medications: Active Medications Generic Name Dose Route Start Last Admin Trade Name Freq PRN Reason Stop Dose Admin Acetaminophen 650 mg 05/30/23 10:18 Acetaminophen 325 Mg Tablet PO Q6H PRN Mild Pain (1-3) or Fever Hydrocodone Bitart/Acetaminophen 1 tab 05/30/23 10:19 06/02/23 09:21 Hydrocodone/Acetaminophen (*Crx) 5-325 Mg Tablet PO 1 tab Q4H PRN Administration Pain Rated 7-10 Carvedilol 6.25 mg 05/29/23 21:00 06/02/23 09:11 Carvedilol 6.25 Mg Tablet BY MOUTH 6.25 mg Q12HR ZINA Administration Cyanocobalamin 1,000 mcg 05/30/23 09:50 05/30/23 12:51 Cyanocobalamin Inj 1,000 Mcg/Ml Vial IM 1,000 mcg Tu@0900 ZINA Administration Cyanocobalamin 1,000 mcg 06/01/23 09:00 06/02/23 09:11 Cyanocobalamin 1,000 Mcg Tablet PO 1,000 mcg QAM ZINA Administration Enoxaparin Sodium 40 mg 06/02/23 09:00 06/02/23 09:11 Enoxaparin 40 Mg/0.4 Ml Syringe SUB-Q 40 mg DAILY ZINA Administration Ferrous Sulfate 325 mg 06/02/23 09:00 06/02/23 09:11 Ferrous Sulfate [address] PO 325 mg DAILY ZINA Administration Iron Sucrose 100 mg/ Sodium 55 mls @ 220 mls/hr 06/02/23 09:00 06/02/23 09:11 Chloride IVPB 06/05/23 09:01 220 mls/hr QAM ZINA Administration Losartan Potassium 25 mg 05/30/23 09:00 06/02/23 09:11 Losartan Potassium 25 Mg Tablet PO 25 mg DAILY ZINA Administrat
[2023-06-02 10:33] LABS: Hematocrit 27.2 % (37.0-47.0); Hemoglobin 8.1 g/dL (12.0-15.0); Mean Corpuscular HGB Conc 29.8 g/dl (32-36); Mean Corpuscular Hemoglobin 21.5 pg (26-34); Mean Corpuscular Volume 72.1 fl (80-100); Mean Platelet Volume 9.2 fl (7.4-10.4); Platelet Count Result 261 k/mm3 (150-375); Red Blood Count 3.77 M/mm3 (4.2-5.4); White Blood Count 9.7 K/mm3 (4.5-10.0)
[2023-06-02 10:44] LABS: Anion Gap 6 mmol/L (8-16); Blood Urea Nitrogen 8 mg/dL (7-17); Calcium 8.8 mg/dL (8.4-10.2); Carbon Dioxide 27 mmol/L (22-30); Chloride 102 mmol/L (98-107); Estimated CRCL calculation 45 ml/min; Estimated Glomerular Filt Rate > 60; Glucose 93 mg/dL (65-110); Potassium 3.2 mmol/L (3.4-5.0); Sodium 135 mmol/L (137-145)
--- NOTE | 2023-06-02 10:49 | PCNWS ---
Weekly nutritional screen. Patient is tolerating current diet with Ensure Surgery BID. Agree with diet orders at this time. Consult if you need any further nutritional interventions. Thank you.
[2023-06-02] MEDS: POTASSIUM CHLORIDE 20 MEQ ER TABLET 40 MEQ PO (13:42)
--- NOTE | 2023-06-02 14:48 | PM.DS ---
DS: Admitting Diagnosis Discharge Date 06/02/23 Admitting Diagnosis Dizziness DS: Discharge Diagnosis Discharge Diagnosis (1) Symptomatic anemia: Code(s): D64.9 - Anemia, unspecified Status: Acute (2) Colon cancer: Code(s): C18.9 - Malignant neoplasm of colon, unspecified Status: Acute (3) Essential hypertension: Code(s): I10 - Essential (primary) hypertension Status: Acute (4) B12 deficiency: Code(s): E53.8 - Deficiency of other specified B group vitamins Status: Acute (5) Fecal occult blood test positive: Code(s): R19.5 - Other fecal abnormalities Status: Acute (6) Dizziness: Code(s): R42 - Dizziness and giddiness Status: Acute DS: Summary Hospital Course Reason for hospitalization: 83yo female with history of hypertension and hyperlipidemia is presenting with lightheadedness and dizziness and found to have a hemoglobin of 5. Please see H&P for details. Hospital Course: Patient presented with complaints of dizziness, lightheadedness and near syncope.? Hemoglobin was 5.3.? She was guaiac positive in the ED. B12 was low c/w B12 deficiency. Iron studies consistent with iron deficiency. She ws treated with B12 and iron replacement. Patient was transfused 2 units of packed red blood cells on 05/25/2023. EGD 05/26 was normal. Colonoscopy 05/27 showing nonobstructing large fungating, malignant appearing, ulcerated mass proximal ascending colon.? There was stigmata bleeding from the mass. General surgery was consulted and she underwent a hand assisted laparoscopic right hemicolectomy with mobilization of hepatic flexure on 05/29/2023. Hemoglobin climbed to 9.4 but has drifted down to 7-8 range and remaining stable. Anemia related to the colonic mass/acute blood loss/B12 deficiency. Pathology showing adenocarcinoma that is moderately differentiated and that invades into the muscularis propria.? Margins were negative for invasive carcinoma.? No positive lymph nodes for tumor.? Staging was pT2 pN0 pM[address] brain showing no acute findings. She worked with therapy. She overall did well and was able to be discharged home on 06/02/23. Spoke with son and hospital course and follow-up plan discussed. Status at Discharge Cognitive/behavioral status at discharge: stable Time Spent with Patient Time attestation: Total time spent providing and/or coordinating discharge services: 35 minutes Time spent: Greater than 30 minutes Exam Narrative: AF 98.0 141/64 87 16 96% ra Gen - NARD Chest - CTA bilaterally, nml RR CV - RRR. Telemetry showing PACs. Abd -soft. Abdominal brace in place. incision clean/dry and intact Ext - No pedal edema Psych - Nml mood and affect Skin - Warm and dry DS: Data Data Completed and Pending Completed studies during hospitalization: Pending at discharge 05/27/23 07:51 Surgical [PTH] Routine 05/29/23 11:41 Surgical [PTH] Routine Labs on day of discharge: Labs from last 24 hours 06/02/23 10:17 WBC 9.7 RBC 3.77 L Hgb 8.1 L Hct 27.2 L MCV 72.1 L MCH 21.5 L MCHC 29.8 L RDW TNP Plt Count 261 MPV 9.2 Sodium 135 L Potassium 3.2 L Chloride 102 Carbon Dioxide 27 Anion Gap 6 L BUN 8 Creatinine 0.70 Estim Creat Clear Calc 45 Estimated GFR > 60 Glucose 93 Calcium 8.8 Discharge Plan Discharge Attending physician on discharge: Marquise Mohamud Consulting providers: Ary Naik; Dilan Land Discharging Clinician: Marquise Mohamud Anticipated Discharge Date/Time: 06/02/23 14:55 Patient Disposition: Home Health Service Activity: may shower and no straining Diet: as tolerated Wound Care Instructions: incision open to air Discharge Instructions: Per Care Coordination. Patient to have Dinh for RN/PT/OT eval and treat [phone]. They will contact patient to arrange first visit. Check blood pressure 1 to 2 times a day. Rec
== END 2023-06-02 16:35 | disposition home health service (06) | DRG 330 ==
LOC: ANHED 14:19 → ANH2MED 17:36
PROVIDERS: Emergency Medicine; Internal Medicine Gastroenterology; Nurse Practitioner Family; Student in an Organized Health Care Education/Training Program; Surgery; Admitting Provider General Practice; Emergency Provider General Practice; PCP Internal Medicine; Visit Provider Internal Medicine
PROC: 0DJ08ZZ Inspection of Upper Intestinal Tract, Via Natural or Artificial Opening Endoscopic (ICD-10-PCS; CPT 43235; principal; 2023-05-26 15:00)
PROC: 0DJD8ZZ Inspection of Lower Intestinal Tract, Via Natural or Artificial Opening Endoscopic (ICD-10-PCS; CPT 45378; principal; 2023-05-27 07:30)
PROC: 0DTF4ZZ Resection of Right Large Intestine, Percutaneous Endoscopic Approach (ICD-10-PCS; CPT 44204; principal; 2023-05-29 10:30)
DX: C18.2 Malignant neoplasm of ascending colon (principal); D62 Acute posthemorrhagic anemia; D50.9 Iron deficiency anemia, unspecified; D63.0 Anemia in neoplastic disease; K64.8 Other hemorrhoids; R19.5 Other fecal abnormalities; R42 Dizziness and giddiness; E53.8 Deficiency of other specified B group vitamins; I10 Essential (primary) hypertension; E78.5 Hyperlipidemia, unspecified; Z96.642 Presence of left artificial hip joint; Z96.651 Presence of right artificial knee joint
CPT/HCPCS: 36415; 36430; 70450; 71045; 74177; 80048; 80053; 82378; 82607; 82728; 82746; 83540; 83550; 84484; 85014; 85018; 85025; 85027; 85055; 85610; 85730; 86850; 86900; 86901; 86920; 88305; 88309; 88342; 93005; 99285; A9270; C9113; J0690; J1100; J1170; J1650; J1756; J2270; J2405; J2704; J2710; J3010; J3420; J7030; J7050; J7120; P9016; Q9967

== ENCOUNTER 2023-06-07 12:36 | Observation (INO) | payer MEDICARE, SELFPAY ==
[2023-06-07 12:39] VITALS: BP 152/80; PULSE 97; RESP 16; TEMP 37.3; O2SAT 100
[2023-06-07 13:33] LABS: Basophils Absolute Auto 0.1 K/mm3 (0.0-0.1); Basophils Percent Auto 0.3 % (0.2-1.2); Eosinophils Percent Auto 0.3 % (0-4.4); Hematocrit 29.5 % (37.0-47.0); Hemoglobin 8.8 g/dL (12.0-15.0); Immature Granulocyte Absolute 0.09 K/mm3 (0.00-0.031); Immature Granulocyte Percent A 0.6 % (0-0.5); Lymphocytes Absolute Auto 0.67 K/mm3 (0.9-3.2); Lymphocytes Percent Auto 4.6 % (18.3-44.2); Mean Corpuscular HGB Conc 29.8 g/dl (32-36); Mean Corpuscular Hemoglobin 21.5 pg (26-34); Monocytes Absolute Auto 1.1 K/mm3 (0.1-0.6); Monocytes Percent Auto 7.2 % (2.6-8.5); Neutrophils Absolute Auto 12.6 K/mm3 (1.3-6.7); Platelet Count Result 586 k/mm3 (150-375); White Blood Count 14.5 K/mm3 (4.5-10.0)
[2023-06-07 13:42] LABS: Alanine Aminotransferase 15 U/L (6-35); Albumin Level 3.3 g/dL (3.5-5.1); Alkaline Phosphatase 96 U/L (38-126); Anion Gap 6 mmol/L (8-16); Aspartate Amino Transferase 26 U/L (14-36); Bilirubin,Total 0.6 mg/dL (0.2-1.3); Blood Urea Nitrogen 7 mg/dL (7-17); Calcium 9.1 mg/dL (8.4-10.2); Carbon Dioxide 24 mmol/L (22-30); Chloride 105 mmol/L (98-107); Estimated CRCL calculation 41 ml/min; Estimated Glomerular Filt Rate > 60; Glucose 122 mg/dL (65-110); Potassium 3.5 mmol/L (3.4-5.0); Sodium 135 mmol/L (137-145)
[2023-06-07 13:43] LABS: Lactic Acid Reflex 1.5 mmol/L (0.7-2.0)
[2023-06-07 13:55] LABS: Anisocytosis 1+ (NORMAL); Hypochromasia 2+ (NORMAL); Platelet Estimate Increased (Adequate); Poikilocytosis 2+ (NORMAL); Schistocytes 1+ (NORMAL); Target Cells 1+ (NORMAL)
--- NOTE | 2023-06-07 14:49 | ED.GENADULT ---
HPI - General Adult General Chief complaint: Recheck/Abnormal Lab/Rx Stated complaint: post op problem Time Seen by Provider: 06/07/23 12:55 History of Present Illness HPI narrative: patient is an 83-year-old female who presents ER with concerns for infection to her surgical wound. Recently underwent laparotomy with partial colectomy by Dr. Naik. Discharge on 06/02/2023. He noticed increased pain and redness over last 2 days. Started draining today. Subjective fevers and chills. Patient reports she is passing gas but has only had 1 bowel movement since going home. No vomiting. Related Data Home Medications Medication Instructions Recorded Confirmed timolol maleate 0.5 % eye drops 1 drop RIGHT EYE Q12H 05/14/19 06/07/23 tizanidine 2 mg capsule 2 mg PO TID PRN Muscle Pain 05/14/19 06/07/23 carvedilol 6.25 mg tablet 6.25 mg PO BID 06/07/23 06/07/23 hydrochlorothiazide 25 mg tablet 25 mg PO DAILY 06/07/23 06/07/23 Allergies Allergy/AdvReac Type Severity Reaction Status Date / Time codeine Allergy Unknown Unknown Verified 06/07/23 16:58 Review of Systems Review of Systems: All systems reviewed & are unremarkable except as noted in HPI and below Constitutional: Constitutional: Reports chills, Reports fatigue and Reports fever(s) ENT: Reports system reviewed and no additional complaints, except as documented Cardiovascular: Cardiovascular: Reports no additional cardiovascular complaints Respiratory: Respiratory: Reports no additional respiratory complaints Gastrointestinal: Gastrointestinal: Reports no additional gastrointestinal complaints Integumentary/Breasts: Skin/Breast: Reports erythema and Reports skin ulcer PMFSH Past Medical History Medical History Chest pain BARNETT (dyspnea on exertion) Dyslipidemia Essential hypertension Impacted cerumen of both ears Preop cardiovascular exam Surgical History Surgical History H/O eye surgery H/O parotidectomy H/O tubal ligation H/O: hysterectomy History of left hip replacement History of right knee joint replacement Hx of tonsillectomy Family History Family History Mother Asthma Father Heart attack Daughter No problems noted. Mother Heart attack Social History Social History Social History: Caffeine-soda Smoking status: Never smoker Alcohol intake: never Substance use: never Substance use type: does not use Lack of Transportation: No Lack of Food: Never True Current Housing: I Have Housing Concerned About Future Housing: No Difficulty Paying Gas/Electric Bills: No Difficulty Paying for Meds: No Currently Unemployed: No Education: Master's Degree or Higher Difficulty w/ Childcare or Family Care: No Gender identity (if verbalized by the patient): Female Spiritual care concerns: No Exam Narrative: GENERAL: Well-appearing, well-nourished, and in no acute distress. HEAD: Normocephalic, atraumatic. ENT: Mucous membranes moist. NECK: Supple. CHEST: Clear to auscultation. No respiratory distress. HEART: Regular rate and rhythm. Normal peripheral pulses. ABDOMEN: Soft, nontender, nondistended. Laparotomy scar with evidence of infection to inferior aspect of the hallux obvious drainage site. Nonfluctuant. EXTREMITIES: Normal range of motion. No edema. SKIN: Warm, dry, no rash. NEURO: Alert and oriented x3. PSYCH: Normal mood and affect. Course Course Emergency Course: Patient resting comfortably. discussed with General surgery. Patient be admitted for IV antibiotics and further evaluation of the infection site. Vital Signs Vital signs: Vital Signs Temperature 99.1 F 06/07/23 12:39 Pulse Rate 97 06/07/23 12:39 Respiratory Rate 16 06/07/23 12:39 Blood Pressure 152
[2023-06-07] MEDS: MORPHINE SULFATE (*CRX) 2 MG/ML INJ IV PUSH ×2 (15:16→21:11)
[2023-06-07] MEDS: ONDANSETRON INJ 4 MG/2 ML VIAL IV PUSH ×2 (15:16→21:11)
[2023-06-07] MEDS: SODIUM CHLORIDE 0.9% IV 1,000 ML 125 ML IV CONT (15:16)
[2023-06-07] MEDS: ceFAZolin 1 GM/NS 50 ML 1 GM/50 ML BAG IVPB (15:19)
--- NOTE | 2023-06-07 16:58 | ADMGEN ---
This patient, Shania Mcleod, was admitted to [facility] Surg Room 328-01. Patient/family oriented to hospital policies and general routines including ID bracelet, bed and alarms, visiting hours, pain management, procedures, bathroom and other care routines, personal items, smoking policy, room service/diet, and visiting hours. Information on how to activate the Rapid Response Team has been discussed. Patient/Family are encouraged to report perceived risks to care and to ask questions if they do not understand what they are told or what they should do.
[2023-06-07 17:28] VITALS: BP 154/91; PULSE 48; RESP 18; TEMP 36.8; O2SAT 100
[2023-06-07 20:00] VITALS: PULSE 48; RESP 18; O2SAT 100
[2023-06-07 21:05] VITALS: BP 150/59; PULSE 44; RESP 28; TEMP 37.2; O2SAT 98
[2023-06-08] MEDS: SODIUM CHLORIDE 0.9% IV 1,000 ML 125 ML IV CONT ×3 (01:35→23:45)
[2023-06-08] MEDS: ceFAZolin 1 GM/NS 50 ML 1 GM/50 ML BAG IVPB ×4 (01:35→23:43)
[2023-06-08 05:35] VITALS: BP 162/63; PULSE 103; RESP 18; TEMP 37.3; O2SAT 97
[2023-06-08 11:45] VITALS: BMI 22.9
[2023-06-08] MEDS: ACETAMINOPHEN 325 MG TABLET 650 MG PO (12:53)
[2023-06-08] MEDS: MORPHINE SULFATE (*CRX) 2 MG/ML INJ IV PUSH ×2 (13:13→21:43)
--- NOTE | 2023-06-08 13:54 | PM.IMHP ---
H&P: HPI History of Present Illness Date/Time: 06/08/23 13:54 Chief Complaint: wound infection Narrative: The patient is a 83-year-old female status post hand assisted laparoscopic right colectomy on 05/29 presenting to the emergency department complaining of severe pain at her hand port incision. The patient reports the pain has been progressively worsening over the last few days. The patient reports some purulent drainage from the bottom portion of the wound over the last day or so. The patient reports that she generally has not felt well, but denies any fevers or chills. The patient reports poor energy and appetite. The patient also reports that she has been somewhat constipated. Review of Systems Review of Systems: All systems reviewed & are unremarkable except as noted in HPI and below PMFSH Past Medical History Medical History Chest pain BARNETT (dyspnea on exertion) Dyslipidemia Essential hypertension Impacted cerumen of both ears Preop cardiovascular exam Surgical History Surgical History H/O eye surgery H/O parotidectomy H/O tubal ligation H/O: hysterectomy History of left hip replacement History of right knee joint replacement Hx of tonsillectomy Family History Family History Mother Asthma Father Heart attack Daughter No problems noted. Mother Heart attack Social History Social History Social History: Caffeine-soda Smoking status: Never smoker Alcohol intake: never Substance use: never Substance use type: does not use Lack of Transportation: No Lack of Food: Never True Current Housing: I Have Housing Concerned About Future Housing: No Difficulty Paying Gas/Electric Bills: No Difficulty Paying for Meds: No Currently Unemployed: No Education: Master's Degree or Higher Difficulty w/ Childcare or Family Care: No Gender identity (if verbalized by the patient): Female Spiritual care concerns: No Meds Home Medications and Allergies Home Medications Medication Instructions Recorded Confirmed Type timolol maleate 0.5 % eye drops 1 drop RIGHT EYE Q12H 05/14/19 06/07/23 History tizanidine 2 mg capsule 2 mg PO TID PRN Muscle Pain 05/14/19 06/07/23 History tramadol 50 mg tablet 50 mg PO Q6H PRN pain #20 tabs 07/14/19 06/07/23 Rx losartan 25 mg tablet 25 mg PO DAILY #30 tabs 07/28/22 06/07/23 Rx cyanocobalamin (vitamin B-12) 1,000 mcg PO QAM #30 tabs 06/02/23 06/07/23 Rx 1,000 mcg tablet (Vitamin B-12) docusate sodium 100 mg capsule 100 mg PO BID #20 caps 06/02/23 06/07/23 Rx (Colace) ferrous sulfate 325 mg (65 mg 325 mg PO DAILY #30 tabs 06/02/23 06/07/23 Rx iron) tablet,delayed release hydrocodone 5 mg-acetaminophen 325 1 tablet PO Q6H PRN pain #20 tabs 06/02/23 06/07/23 Rx mg tablet carvedilol 6.25 mg tablet 6.25 mg PO BID 06/07/23 06/07/23 History hydrochlorothiazide 25 mg tablet 25 mg PO DAILY 06/07/23 06/07/23 History Allergies Allergy/AdvReac Type Severity Reaction Status Date / Time codeine Allergy Unknown Unknown Verified 06/07/23 16:58 Vital Signs Vital Signs - 24 hr 06/07/23 17:16 06/07/23 17:28 06/07/23 20:00 Temperature 36.8 C Pulse Rate 48 L 48 L Respiratory Rate 18 18 Blood Pressure 154/91 H Pulse Oximetry 100 100 Oxygen Delivery Room Air Room Air 06/07/23 21:05 06/08/23 05:35 06/08/23 08:01 Temperature 37.2 C 37.3 C Pulse Rate 44 L 103 H Respiratory Rate 28 H 18 Blood Pressure 150/59 H 162/63 H Pulse Oximetry 98 97 Oxygen Delivery Room Air Exam Const: General: cooperative, comfortable, no acute distress and tired appearing HENMT: Head: normal to inspection, normocephalic and atraumatic Eyes: General: appearance normal, both eyes and all related structures Neck: Neck:
[2023-06-08 14:00] VITALS: BP 142/62; PULSE 97; RESP 18; TEMP 36.8; O2SAT 96
--- NOTE | 2023-06-08 14:07 | W.PM.PROC2 ---
Procedure Note - Detailed Date of Procedure 06/08/23 Pre-op Diagnosis post-op wound infection Post-op Diagnosis Same Procedure Performed complex incision and drainage abdominal wall abscess measuring approximately 5 x 5 cm Surgeon Ary Naik MD Anesthesia Local Indications 83-year-old female status post hand assisted laparoscopic right colectomy presenting with postop wound infection at hand port site. Findings Postoperative wound infection at hand port site inferior portion of incision measuring approximately 5 x 5 cm Description of Procedure The patient was placed in the supine position. A time-out was then done to verify the patient's identity, as well as the procedure being performed. I began by localizing the area in and around this abscess in the periumbilical region. I then prepped and draped the area in normal sterile fashion. I then made a small incision in the inferior portion of the wound, enlarging the area that was already open. Once opened and in the abscess cavity, a large amount of purulent drainage was noted. I bluntly dissected around this cavity with a hemostat to break up further loculations and get the area completely drained. Once completely drained, the cavity measured 5 x 5 cm. Then packed the cavity with quarter-inch iodoform to keep the area open and draining. Sterile dressing was then placed. The patient tolerated the procedure well. Estimated Blood Loss 0 Packing Yes Pathology None sent Complications No immediate complications Condition Stable Disposition Floor [facility] Billing Surgery - Charge Forward: Surgery Billing
[2023-06-08 19:46] VITALS: PULSE 97; RESP 18; O2SAT 96
[2023-06-08 21:25] VITALS: BP 182/78; PULSE 102; RESP 16; TEMP 37.4; O2SAT 94
[2023-06-08] MEDS: ONDANSETRON INJ 4 MG/2 ML VIAL IV PUSH (21:42)
[2023-06-09 00:41] VITALS: BP 163/64; PULSE 98; RESP 16; TEMP 36.9; O2SAT 95
[2023-06-09 05:20] VITALS: BP 157/68; PULSE 97; RESP 16; TEMP 36.5; O2SAT 94
[2023-06-09 06:35] LABS: Hemoglobin 8.1 g/dL (12.0-15.0); Mean Corpuscular Volume 73.4 fl (80-100); Mean Platelet Volume 9.3 fl (7.4-10.4); Platelet Count Result 563 k/mm3 (150-375); Red Blood Count 3.68 M/mm3 (4.2-5.4); White Blood Count 10.7 K/mm3 (4.5-10.0)
[2023-06-09 06:44] LABS: Anion Gap 5 mmol/L (8-16); Blood Urea Nitrogen 3 mg/dL (7-17); Calcium 8.4 mg/dL (8.4-10.2); Carbon Dioxide 20 mmol/L (22-30); Chloride 111 mmol/L (98-107); Estimated CRCL calculation 47 ml/min; Estimated Glomerular Filt Rate > 60; Glucose 83 mg/dL (65-110); Potassium 3.4 mmol/L (3.4-5.0); Sodium 136 mmol/L (137-145)
--- NOTE | 2023-06-09 09:38 | PM.DS ---
DS: Admitting Diagnosis Discharge Date 06/09/2023 Admitting Diagnosis Postoperative wound infection DS: Discharge Diagnosis Discharge Diagnosis (1) Postoperative wound infection: Code(s): T81.49XA - Infection following a procedure, other surgical site, initial encounter Status: Acute Assessment and Plan: status post incision and drainage, continue local wound care, home with p.o. antibiotics, follow-up 1 week (2) Colon cancer: Code(s): C18.9 - Malignant neoplasm of colon, unspecified Status: Acute Assessment and Plan: doing well, will need referral to Oncology as outpatient DS: Summary Hospital Course Reason for hospitalization: postoperative wound infection Hospital Course: The patient is an 83-year-old female status post hand assisted laparoscopic right colectomy on 05/29. The patient presented to the emergency department complaining severe pain at her hand port site. Workup in the emergency department was significant for postoperative wound infection. Patient was admitted to the surgical service and started on IV antibiotics. Upon evaluation, it was decided the patient would need a incision and drainage of this postoperative wound infection, abscess. The patient had bedside complex incision and drainage done on 06/08, please see full operative report for details. Postoperatively the patient did well and reported immediate relief. On postoperative day 1., the patient felt much better and the wound was much improved. I unpacked the and the drainage and cellulitis were much improved. The patient will be discharged home at this time with continued local wound care and p.o. antibiotics. She will follow-up with me in 1 week. Status at Discharge Functional status at discharge: independent ambulation Overall status at discharge: patient is progressing back to baseline Time Spent with Patient Time attestation: Total time spent providing and/or coordinating discharge services: Time spent: Less than 30 minutes Exam Const: General: cooperative, comfortable and no acute distress Resp: Auscultation: clear to auscultation bilaterally Cardio: Rate: regular rate Rhythm: regular rhythm GI: Inspection: normal to inspection and incision GI Palp: Yes abdominal tenderness, Yes Soft to palpation, Yes Tenderness to palpation present (GI), No Guarding due to palpation present (GI) and No Rigid due to palpation Other: wound c slight drainage, decreased TTP, induration, cellulitis DS: Data Data Completed and Pending Labs on day of discharge: Labs from last 24 hours 06/09/23 06:03 WBC 10.7 H RBC 3.68 L Hgb 8.1 L Hct 27.0 L MCV 73.4 L MCH 22.0 L MCHC 30.0 L RDW TNP Plt Count 563 H MPV 9.3 Sodium 136 L Potassium 3.4 Chloride 111 H Carbon Dioxide 20 L Anion Gap 5 L BUN 3 L Creatinine 0.60 L Estim Creat Clear Calc 47 Estimated GFR > 60 Glucose 83 Calcium 8.4 Discharge Plan Discharge Attending physician on discharge: Ary Naik Discharging Clinician: Ary Naik Anticipated Discharge Date/Time: 06/09/23 09:35 Patient Disposition: Home, Self-Care Activity: may shower Diet: as tolerated Wound Care Instructions: remove dressing to shower and change dressing daily Discharge Instructions: dry guaze to wound daily, no need to further pack Patient Instructions: Antibiotic Form Stand Alone Forms: General Discharge Information Follow-up/Referrals: Ary Naik MD [Physician] - 1 Week Discharge Medications: New hydrocodone-acetaminophen 5-325 mg tablet 1 tablet PO Q6H PRN (Reason: pain) Qty: 20 0RF sulfamethoxazole-trimethoprim [Bactrim DS] 800-160 mg tablet 1 tablet PO Q12H Qty: 14 0RF Continued timolol maleate 0.5 % drops 1 drop RIGHT EYE Q12H tizanidine 2 mg capsule 2 mg PO TID PRN (Reason: Muscle Pain) Rx Instructions: take 2 tablets po q8hrs prn tramadol 50 mg tablet
[2023-06-09] MEDS: HYDROcodone/acetaminophen (*CRX) 5-325 MG TABLET 1 TAB PO (09:39)
[2023-06-09] MEDS: ceFAZolin 1 GM/NS 50 ML 1 GM/50 ML BAG IVPB (09:39)
== END 2023-06-09 16:35 | disposition home or self-care (01) ==
LOC: ANHED 13:16 → ANH3MEDSUR 15:32
PROVIDERS: Admitting Provider Surgery; Emergency Provider Emergency Medicine; PCP Internal Medicine; Visit Provider Surgery
DX: T81.41XA Infection following a procedure, superficial incisional surgical site, initial encounter (principal); Y83.8 Other surgical procedures as the cause of abnormal reaction of the patient, or of later complication, without mention of misadventure at the time of the procedure; C18.9 Malignant neoplasm of colon, unspecified; Z90.49 Acquired absence of other specified parts of digestive tract; E78.5 Hyperlipidemia, unspecified; I10 Essential (primary) hypertension; Z79.891 Long term (current) use of opiate analgesic; Z79.899 Other long term (current) drug therapy
CPT/HCPCS: 10061; 36415; 80048; 80053; 83605; 85025; 85027; 96361; 96365; 96366; 96375; 99285; A9270; G0378; J0690; J2270; J2405; J7030

== ENCOUNTER 2023-07-24 10:39 | Outpatient (CLI) | payer MEDICARE, SELFPAY ==
[2023-07-24 11:06] LABS: Basophils Absolute Auto 0.1 K/mm3 (0.0-0.1); Eosinophils Absolute Auto 0.1 K/mm3 (0-0.3); Eosinophils Percent Auto 2.7 % (0-4.4); Hematocrit 39.3 % (37.0-47.0); Immature Granulocyte Absolute 0.01 K/mm3 (0.00-0.031); Immature Granulocyte Percent A 0.2 % (0-0.5); Lymphocytes Absolute Auto 1.45 K/mm3 (0.9-3.2); Lymphocytes Percent Auto 28.3 % (18.3-44.2); Mean Corpuscular HGB Conc 30.5 g/dl (32-36); Mean Corpuscular Hemoglobin 25.9 pg (26-34); Mean Corpuscular Volume 84.9 fl (80-100); Mean Platelet Volume 9.4 fl (7.4-10.4); Monocytes Absolute Auto 0.7 K/mm3 (0.1-0.6); Monocytes Percent Auto 13.5 % (2.6-8.5); Neutrophils Absolute Auto 2.8 K/mm3 (1.3-6.7); Neutrophils Percent Auto 54.3 % (45.5-73.1); Platelet Count Result 276 k/mm3 (150-375); Red Blood Count 4.63 M/mm3 (4.2-5.4); White Blood Count 5.1 K/mm3 (4.5-10.0)
[2023-07-24 13:56] LABS: Iron 55 ug/dL (37-170)
[2023-07-24 14:04] LABS: Alanine Aminotransferase 28 U/L (6-35); Albumin Level 4.1 g/dL (3.5-5.1); Alkaline Phosphatase 102 U/L (38-126); Anion Gap 8 mmol/L (8-16); Aspartate Amino Transferase 35 U/L (14-36); Bilirubin,Total 0.7 mg/dL (0.2-1.3); Blood Urea Nitrogen 9 mg/dL (7-17); Calcium 10.1 mg/dL (8.4-10.2); Carbon Dioxide 26 mmol/L (22-30); Chloride 107 mmol/L (98-107); Estimated Glomerular Filt Rate > 60; Glucose 86 mg/dL (65-110); Potassium 3.7 mmol/L (3.4-5.0); Sodium 141 mmol/L (137-145)
[2023-07-24 14:07] LABS: Percent Iron Saturation 15 % (20-50)
[2023-07-24 14:36] LABS: Carcinoembryonic Antigen 5.1 ng/mL (0.0-3.0)
[2023-07-24 15:12] LABS: Folic Acid 11.6 ng/mL (2.76->20)
[2023-07-28 11:14] LABS: Methylmalonic Acid 121 nmol/L (87-318)
[2023-07-29 15:47] LABS: Soluble Transferrin Receptor 2.29 mg/L (0.76-1.76)
== END 2023-07-24 10:40 | disposition home or self-care (01) ==
LOC: ANHLAB 10:40
PROVIDERS: PCP Family Medicine; Visit Provider Internal Medicine Hematology & Oncology
DX: D64.9 Anemia, unspecified (principal); C18.9 Malignant neoplasm of colon, unspecified
CPT/HCPCS: 36415; 80053; 82378; 82607; 82728; 82746; 83540; 83550; 83921; 84238; 85025

== ENCOUNTER 2023-08-30 11:08 | Outpatient (CLI) | payer MEDICARE, SELFPAY ==
--- NOTE | ~2023-08-30 | CT_ITS ---
Non-contrast CT scan of the Abdomen and Pelvis Clinical indication: Abdominal pain Technique: 2.5 mm axial scans were obtained through the abdomen and pelvis without intravenous or or al contrast. Dose reduction technique was used on this scan by utilizing automated exposure control a nd iterative reconstruction technique. The dose-length product (DLP) was 298.40 mGy-cm. COMPARISON: 05/27/2023 Findings: Images through the lung bases reveal no abnormalities. There is no evidence of renal or ureteral calculi. The kidneys and the ureters are nondilated. The liver, spleen, pancreas, gallbladder, and adrenals appear normal. There are atherosclerotic calci fications of the aorta. . There is no evidence of bowel obstruction. Evidence of prior right partial colectomy. Images through the pelvis are degraded by streak artifact from left hip arthroplasty. There is no sathish dence of ascites or lymphadenopathy. Urinary bladder unremarkable. No pelvic mass evident. Impression: No acute abnormality. Prior partial right colectomy. Reviewed, dictated and finalized at [facility]. ETING COMMUNICATIONS COORDINATOR Impression: No acute abnormality. Prior partial right colectomy.
== END 2023-08-30 11:09 ==
LOC: MICIMG 11:09
PROVIDERS: PCP Surgery; Visit Provider Surgery
DX: R10.30 Lower abdominal pain, unspecified (principal); Z90.49 Acquired absence of other specified parts of digestive tract
CPT/HCPCS: 74176

== ENCOUNTER 2023-10-02 16:40 | Outpatient (CLI) | payer MEDICARE, SELFPAY ==
--- NOTE | ~2023-10-02 | MR_ITS ---
MRI of the brain Clinical History: Multiple sclerosis Technique: Axial and sagittal T1-weighted images were acquired. These were followed by axial T2-weigh shanice, diffusion weighted, gradient, and FLAIR images. Following intravenous administration of 11 cc Mu ltiHance gadolinium, T1-weighted fat-sat imaging was performed in the axial, coronal, and sagittal pl anes. Findings: There is no acute infarct, intracranial hemorrhage, or mass lesion. There are moderate brush clearer surveying mariann white matter changes in the periventricular white matter bilaterally. Ventricles and subarachnoid spaces are minimally prominent. Orbits are unremarkable. Paranasal sinuse s and mastoid air cells are clear. Major flow voids are intact. Sagittal midline structures are intact. No abnormal postcontrast enhancement identified. IMPRESSION: Moderate chronic white matter changes bilaterally. Appearance is most compatible with chronic microva scular ischemic change, however demyelinating disease is difficult to definitively exclude. Reviewed, dictated and finalized at [facility]. IMPRESSION: Moderate chronic white matter changes bilaterally. Appearance is most compatibl e with chronic microvascular ischemic change, however demyelinating disease is difficult to definitively exclude.
== END 2023-10-02 16:41 | disposition home or self-care (01) ==
PROVIDERS: PCP Surgery; Visit Provider Psychiatry & Neurology Neurology
DX: G35 Multiple sclerosis (principal); E55.9 Vitamin D deficiency, unspecified; R42 Dizziness and giddiness; E53.8 Deficiency of other specified B group vitamins; R93.0 Abnormal findings on diagnostic imaging of skull and head, not elsewhere classified
CPT/HCPCS: 70553; A9577

== ENCOUNTER 2023-10-24 08:50 | Outpatient (CLI) | payer MEDICARE, SELFPAY ==
--- NOTE | ~2023-10-24 | CT_ITS ---
CT of the Abdomen and Pelvis: Indication: Colon cancer Technique: 2.5 mm axial scans were obtained through the abdomen and pelvis following intravenous adm inistration of 100 cc of Omnipaque 350. Dose reduction technique was used on this scan by utilizing a utomated exposure control and iterative reconstruction technique. The dose-length product (DLP) was 2 50.54 mGy-cm. COMPARISON: 08/30/2023 Findings: Scans through the lung bases are unremarkable demonstrate mild bibasilar atelectatic chapman e. The liver, spleen, pancreas, adrenals and kidneys are within normal limits. Gallbladder probably abse nt. There are atherosclerotic calcifications of the aorta. No lymphadenopathy. No bowel obstruction or bowel wall thickening. Prior partial right colectomy with anastomotic suture line present.. Images through the pelvis are degraded by streak artifact from left hip arthroplasty. No pelvic mass evident. Urinary bladder grossly unremarkable. No ascites. Impression: No evidence for active malignancy or metastatic disease. Prior partial right colectomy. Reviewed, dictated and finalized at location . Impression: No evidence for active malignancy or metastatic disease. Prior partial right colectomy.
[2023-10-24 09:18] LABS: Estimated Glomerular Filt Rate > 60
== END 2023-10-24 08:51 | disposition home or self-care (01) ==
PROVIDERS: PCP Family Medicine; Visit Provider Internal Medicine Hematology & Oncology
DX: C18.9 Malignant neoplasm of colon, unspecified (principal)
CPT/HCPCS: 74177; Q9967

== ENCOUNTER 2023-10-27 13:23 | Outpatient (CLI) | payer MEDICARE, SELFPAY ==
[2023-10-27 14:03] LABS: Basophils Absolute Auto 0.1 K/mm3 (0.0-0.1); Basophils Percent Auto 1.1 % (0.2-1.2); Eosinophils Absolute Auto 0.3 K/mm3 (0-0.3); Eosinophils Percent Auto 4.8 % (0-4.4); Hematocrit 38.8 % (37.0-47.0); Hemoglobin 13.2 g/dL (12.0-15.0); Immature Granulocyte Absolute 0.01 K/mm3 (0.00-0.031); Immature Granulocyte Percent A 0.2 % (0-0.5); Lymphocytes Absolute Auto 1.92 K/mm3 (0.9-3.2); Lymphocytes Percent Auto 34.3 % (18.3-44.2); Mean Corpuscular Hemoglobin 30.3 pg (26-34); Mean Platelet Volume 9.3 fl (7.4-10.4); Monocytes Absolute Auto 0.7 K/mm3 (0.1-0.6); Monocytes Percent Auto 12.3 % (2.6-8.5); Neutrophils Absolute Auto 2.6 K/mm3 (1.3-6.7); Neutrophils Percent Auto 47.3 % (45.5-73.1); Platelet Count Result 198 k/mm3 (150-375); Red Blood Count 4.36 M/mm3 (4.2-5.4); Red Cell Distribution Width 14.2 % (11.5-14.5); White Blood Count 5.6 K/mm3 (4.5-10.0)
[2023-10-27 15:25] LABS: Iron 149 ug/dL (37-170)
[2023-10-27 15:27] LABS: Anion Gap 7 mmol/L (4-12); Blood Urea Nitrogen 16 mg/dL (7-17); Calcium 10.2 mg/dL (8.4-10.2); Carbon Dioxide 24 mmol/L (22-30); Chloride 108 mmol/L (98-107); Estimated Glomerular Filt Rate > 60; Glucose 97 mg/dL (65-110); Potassium 3.7 mmol/L (3.4-5.0); Sodium 139 mmol/L (137-145)
[2023-10-27 15:35] LABS: Percent Iron Saturation 47 % (20-50)
[2023-10-27 15:58] LABS: Carcinoembryonic Antigen 5.1 ng/mL (0.0-3.0)
== END 2023-10-27 13:24 | disposition home or self-care (01) ==
PROVIDERS: PCP Family Medicine; Visit Provider Internal Medicine Hematology & Oncology
DX: C18.9 Malignant neoplasm of colon, unspecified (principal); D64.9 Anemia, unspecified
CPT/HCPCS: 36415; 80048; 82378; 82728; 83540; 83550; 85025

== ENCOUNTER 2023-11-13 12:54 | Outpatient (CLI) | payer MEDICARE, SELFPAY ==
[2023-11-13 13:54] LABS: Cholesterol 176 mg/dL (0-200); HDL Direct 59 mg/dL; Triglycerides 58 mg/dL (<150)
[2023-11-13 14:05] LABS: LDL Cholesterol Direct 96 mg/dL
[2023-11-13 14:11] LABS: Free T4 Free Thyroxine 1.24 ng/mL (0.78-2.19)
[2023-11-13 15:02] LABS: Folic Acid 13.6 ng/mL (2.76->20)
[2023-11-14 10:29] LABS: Triiodothyronine T3 Free 2.9 pg/mL (2.3-4.2)
[2023-11-16 10:58] LABS: Vitamin D 1,25 (OH)2 Total 39 pg/mL (18-72); Vitamin D2 1,25 (OH)2 <8 pg/mL; Vitamin D3 1,25 (OH)2 39 pg/mL
== END 2023-11-13 12:55 | disposition home or self-care (01) ==
PROVIDERS: PCP Family Medicine; Visit Provider Psychiatry & Neurology Neurology
DX: R42 Dizziness and giddiness (principal); E53.8 Deficiency of other specified B group vitamins; E55.9 Vitamin D deficiency, unspecified; R06.09 Other forms of dyspnea; I10 Essential (primary) hypertension
CPT/HCPCS: 36415; 80061; 82607; 82652; 82746; 84439; 84443; 84481

== ENCOUNTER 2024-01-18 10:40 | Outpatient (CLI) | payer MEDICARE, SELFPAY ==
[2024-01-18 11:53] LABS: Basophils Percent Auto 0.8 % (0.2-1.2); Eosinophils Absolute Auto 0.1 K/mm3 (0-0.3); Eosinophils Percent Auto 2.1 % (0-4.4); Hematocrit 40.5 % (37.0-47.0); Hemoglobin 13.4 g/dL (12.0-15.0); Immature Granulocyte Absolute 0.01 K/mm3 (0.00-0.031); Immature Granulocyte Percent A 0.2 % (0-0.5); Lymphocytes Absolute Auto 1.57 K/mm3 (0.9-3.2); Lymphocytes Percent Auto 32.6 % (18.3-44.2); Mean Corpuscular HGB Conc 33.1 g/dl (32-36); Mean Corpuscular Hemoglobin 30.4 pg (26-34); Mean Corpuscular Volume 91.8 fl (80-100); Mean Platelet Volume 9.5 fl (7.4-10.4); Monocytes Absolute Auto 0.6 K/mm3 (0.1-0.6); Monocytes Percent Auto 11.9 % (2.6-8.5); Neutrophils Absolute Auto 2.5 K/mm3 (1.3-6.7); Neutrophils Percent Auto 52.4 % (45.5-73.1); Platelet Count Result 219 k/mm3 (150-375); Red Blood Count 4.41 M/mm3 (4.2-5.4); Red Cell Distribution Width 13.4 % (11.5-14.5); White Blood Count 4.8 K/mm3 (4.5-10.0)
[2024-01-18 12:18] LABS: Alanine Aminotransferase 15 U/L (6-35); Albumin Level 4.1 g/dL (3.5-5.1); Alkaline Phosphatase 113 U/L (38-126); Anion Gap 9 mmol/L (4-12); Aspartate Amino Transferase 27 U/L (14-36); Bilirubin,Total 0.5 mg/dL (0.2-1.3); Blood Urea Nitrogen 9 mg/dL (7-17); Calcium 9.2 mg/dL (8.4-10.2); Carbon Dioxide 24 mmol/L (22-30); Chloride 106 mmol/L (98-107); Estimated Glomerular Filt Rate > 60; Glucose 99 mg/dL (65-110); Potassium 3.8 mmol/L (3.4-5.0); Sodium 139 mmol/L (137-145)
[2024-01-18 12:39] LABS: Carcinoembryonic Antigen 5.7 ng/mL (0.0-3.0)
== END 2024-01-18 10:41 | disposition home or self-care (01) ==
PROVIDERS: PCP Family Medicine; Visit Provider Internal Medicine Hematology & Oncology
DX: C18.9 Malignant neoplasm of colon, unspecified (principal)
CPT/HCPCS: 36415; 80053; 82378; 85025

== ENCOUNTER 2024-02-13 09:07 | Outpatient (CLI) | payer MEDICARE, SELFPAY ==
--- NOTE | ~2024-02-13 | CT_ITS ---
CT abdomen pelvis w con Ordering provider: Anirudh Adair MD History: 83 years Female with . ABD PAIN . Comparison: October 24, 2023 Technique: CT abdomen and pelvis with IV and without oral contrast. Automated exposure control and it erative reconstruction technique were employed. The dose-length product was 345.56 mGy-cm. 100 mL Omn ipaque 350 was given IV. Findings: VISUALIZED LOWER CHEST: Dependent atelectatic changes. UPPER ABDOMINAL ORGANS: Liver: Mild fat infiltration. CBD measures 1.1 cm. Gallbladder: Status post cholecystectomy. Spleen: Normal. Stomach/duodenum: Normal. Pancreas: Slightly prominent pancreatic duct. Adrenals: Normal. Kidneys: Normal. PELVIC ORGANS: Mild diffuse bladder wall thickening which is likely related to incomplete distention. No bladder stone. Artifacts are seen. BOWEL AND MESENTERY: Colon: No evidence of diverticulitis. Postoperative changes in the right side of the transverse colon . Status post right colectomy. Minimal fat stranding is seen in the area of the surgery. Normal appen farrah. Small Bowel: Normal. No obstruction. Peritoneum/mesentery: No free air or free fluid. No mesenteric lymphadenopathy. RETROPERITONEUM: Moderate atheromatous disease of the abdominal aorta. No retroperitoneal lymphaden opathy. MUSCULOSKELETAL: Superficial soft tissues: The superficial soft tissues are normal. Bones: Moderate degenerative changes of the spine. Levoscoliosis. Left hip arthroplasty. Right hip Se maykel osteoarthritic changes. IMPRESSION: 1. No evidence of diverticulitis or intestinal obstruction. 2. Slightly prominent pancreatic duct. Follow-up advised. 3. Status post right colectomy. 4. Reviewed, dictated and finalized at location A.
== END 2024-02-13 09:08 | disposition home or self-care (01) ==
LOC: ANHIMG 09:11
PROVIDERS: PCP Family Medicine; Visit Provider Internal Medicine Hematology & Oncology
DX: R10.9 Unspecified abdominal pain (principal); Z90.49 Acquired absence of other specified parts of digestive tract
CPT/HCPCS: 74177; Q9967

== ENCOUNTER 2024-05-09 15:53 | Outpatient (CLI) | payer MEDICARE, SELFPAY | END 2024-05-09 15:54 | disposition home or self-care (01) | LOC: ANHLAB 15:54 | PROVIDERS: PCP Family Medicine; Visit Provider Internal Medicine Hematology & Oncology | DX: R53.83 Other fatigue (principal) | CPT/HCPCS: 36415; 82607 ==

== ENCOUNTER 2024-05-28 19:41 | Emergency (ER) | payer MEDICARE, SELFPAY ==
--- NOTE | ~2024-05-28 | XR_ITS ---
SINGLE AP VIEW PELVIS Ordering provider: Leana Christie PA-C History: . fall . Comparison: None. FINDINGS: BONES: No acute fracture or dislocation. Widening of the central canal in the sacrum. HIP JOINT SPACES: Left hip arthroplasty. Severe right hip osteoarthritic changes. SACROILIAC JOINT SPACES/LUMBAR SPINE: The sacroiliac joint spaces are normal. Mild degenerative chapman es of the visualized lower lumbar spine. PUBIC SYMPHYSIS: Normal. SOFT TISSUES: Normal. IMPRESSION: No acute osseous abnormality pelvis. Reviewed, dictated and finalized at location A. ICAL PRODUCTION TECHNICIAN
--- NOTE | ~2024-05-28 | XR_ITS ---
XR chest 2V Ordering provider: Leana Christie PA-C History: 84 years Female with . weakness . Comparison: None. FINDINGS: MEDIASTINUM: The cardiac silhouette is not enlarged. LUNGS: No infiltrates, effusions or pneumothorax. OTHER: No free air under the diaphragm. S-shaped scoliosis with degenerative spine. IMPRESSION: No acute cardiopulmonary pathology. Reviewed, dictated and finalized at location A. EL OPENER
--- NOTE | ~2024-05-28 | CT_ITS ---
CT brain wo con Ordering provider: Leana Christie PA-C History: 84 years Female with . head injury . Comparison: None. Technique: CT of the head without contrast. Radiation reduction technique utilized. The dose-length p roduct was 605.33 mGy-cm. FINDINGS: BRAIN PARENCHYMA AND CSF SPACES: Mild leukoaraiosis and diffuse cortical atrophy. Mild atheromatous d isease. No midline shift, mass effect or hemorrhage. The brain parenchyma and CSF spaces are otherwi se normal. VISUALIZED PARANASAL SINUSES: Well aerated. MASTOIDS: Well aerated. BONES: The bones appear intact. SOFT TISSUES: Visualized nasopharynx is normal. Superficial soft tissues are normal. IMPRESSION: No acute intracranial findings. Reviewed, dictated and finalized at location A. HAND
--- NOTE | ~2024-05-28 | CT_ITS ---
CT cervical spine wo con Ordering provider: Leana Christie PA-C History: . head injury . Comparison: October Technique: CT of the cervical spine was performed without contrast. Sagittal and coronal reformatted images were also obtained and reviewed. Automated exposure control and iterative reconstruction tonya hnique were employed. The dose-length product was 177.21 mGy-cm. FINDINGS: VERTEBRAE: Anterolisthesis at the level of C4-C5. No subluxation or acute fracture. The occipital con dyles are intact. DISC SPACES: Moderate to severe Narrowing of the disc C5-C6 and C6-C7. Narrowing of the disc C7-T1. M ultilevel facet joint disease. Multilevel uncovertebral joint osteoarthritic changes. Narrowing of th e foramina at the level of C2-C3, C3-C4, C4-C5, C5-C6 and C6-C7. PARASPINOUS SOFT TISSUES: Normal. IMPRESSION: No acute osseous abnormality cervical spine. Reviewed, dictated and finalized at location A. SAWYER
[2024-05-28 19:47] VITALS: BP 167/84; PULSE 83; RESP 16; TEMP 36.6; O2SAT 100
[2024-05-28 21:32] LABS: Basophils Percent Auto 0.4 % (0.2-1.2); Eosinophils Absolute Auto 0.1 K/mm3 (0-0.3); Eosinophils Percent Auto 0.8 % (0-4.4); Hematocrit 41.8 % (37.0-47.0); Hemoglobin 14.5 g/dL (12.0-15.0); Immature Granulocyte Absolute 0.01 K/mm3 (0.00-0.031); Immature Granulocyte Percent A 0.1 % (0-0.5); Lymphocytes Absolute Auto 1.21 K/mm3 (0.9-3.2); Lymphocytes Percent Auto 16.9 % (18.3-44.2); Mean Corpuscular HGB Conc 34.7 g/dl (32-36); Mean Corpuscular Hemoglobin 30.6 pg (26-34); Mean Corpuscular Volume 88.2 fl (80-100); Monocytes Absolute Auto 0.8 K/mm3 (0.1-0.6); Monocytes Percent Auto 10.8 % (2.6-8.5); Neutrophils Absolute Auto 5.1 K/mm3 (1.3-6.7); Platelet Count Result 196 k/mm3 (150-375); Red Blood Count 4.74 M/mm3 (4.2-5.4); Red Cell Distribution Width 13.1 % (11.5-14.5); White Blood Count 7.1 K/mm3 (4.5-10.0)
[2024-05-28 21:42] LABS: Alanine Aminotransferase 15 U/L (6-35); Albumin Level 4.3 g/dL (3.5-5.1); Alkaline Phosphatase 94 U/L (38-126); Anion Gap 3 mmol/L (4-12); Aspartate Amino Transferase 25 U/L (14-36); Blood Urea Nitrogen 9 mg/dL (7-17); Calcium 9.9 mg/dL (8.4-10.2); Carbon Dioxide 27 mmol/L (22-30); Chloride 104 mmol/L (98-107); Estimated CRCL calculation 38 ml/min; Estimated Glomerular Filt Rate > 60; Glucose 97 mg/dL (65-110); Potassium 3.1 mmol/L (3.4-5.0); Sodium 134 mmol/L (137-145)
--- NOTE | 2024-05-28 22:19 | ED.FALL ---
HPI - Fall General Chief Complaint: Fall Stated Complaint: glf from toilet Time Seen by Provider: 05/28/24 20:23 Source: patient Mode of arrival: wheelchair Limitations: no limitations History of Present Illness HPI Narrative: This is an 84-year-old female that presents to the emergency department after a fall today with head injury. Reports she was trying to do her colonoscopy prep. She was seated on the toilet. She started to feel very nauseous and lightheaded. She fell forward and hit her head. She did not lose consciousness. Reports a laceration to her forehead. She is up-to-date on her tetanus vaccination. Denies vomiting, focal numbness or weakness. Related Data Home Medications Medication Instructions Recorded Confirmed timolol maleate 0.5 % eye drops 1 drop RIGHT EYE Q12H 05/14/19 05/15/24 tizanidine 2 mg capsule 2 mg PO TID PRN Muscle Pain 05/14/19 05/15/24 carvedilol 6.25 mg tablet 6.25 mg PO Q12H 05/15/24 05/15/24 Allergies Allergy/AdvReac Type Severity Reaction Status Date / Time codeine AdvReac Intermediate Nausea Verified 05/28/24 22:12 Review of Systems Review of Systems: CONSTITUTIONAL: Denies fever EYES: Denies visual changes GASTROINTESTINAL: Denies vomiting MUSCULOSKELETAL: Denies back pain, joint pain, or myalgia. NEUROLOGIC: Reports headache. Denies numbness, or weakness. All systems reviewed & are unremarkable except as noted in HPI and below PMFSH Past Medical History Medical History Ataxia Cerebrovascular disease Chest pain BARNETT (dyspnea on exertion) Dyslipidemia Essential hypertension Fecal occult blood test positive Impacted cerumen of both ears Non-healing surgical wound right carotid scar Preop cardiovascular exam Primary adenocarcinoma of ascending colon Symptomatic anemia Thyroid nodule Surgical History Surgical History H/O eye surgery H/O parotidectomy H/O tubal ligation H/O: hysterectomy History of left hip replacement History of right knee joint replacement Hx of colectomy Hx of colonoscopy Hx of tonsillectomy Family History Family History Mother Asthma Heart disease Heart attack Father Heart attack Daughter Cerebral palsy Vision disorder Sibling Asthma Social History Social History Social History: Caffeine-soda Smoking status: Never smoker Second hand tobacco smoke exposure: No Alcohol intake: never Substance use: never Substance use type: does not use Do You Feel Safe in your Home?: Yes Lack of Transportation: No Lack of Food: Never True Current Housing: I Have Housing Concerned About Future Housing: No Difficulty Paying Gas/Electric Bills: No Difficulty Paying for Meds: No Currently Unemployed: No Education: Master's Degree or Higher Difficulty w/ Childcare or Family Care: No Living arrangements: alone Occupation/Education: retired Additional occupation/education comments: [employer] Gender identity (if verbalized by the patient): Female Spiritual care concerns: No Exam Narrative: GENERAL: Elderly, well-nourished, and in no acute distress. HEAD: Normocephalic. 2cm linear laceration into subcutaneous tissue to the forehead EYES: PERRLA and EOMI. ENT: Nares clear, no rhinorrhea or epistaxis. Mucous membranes moist. Oropharynx without tonsillar hypertrophy exudate or other lesions. Bilateral TMs pearly nair non-bulging NECK: Supple. No adenopathy or masses. CHEST: Clear to auscultation. No respiratory distress. No wheezes rales or rhonchi HEART: Regular rate and rhythm. No murmur heard. Normal peripheral pulses. EXTREMITIES: Normal range of motion. No edema or obvious deformity. SKIN: Warm, dry, no rash. NEURO: No focal deficits. Alert and oriented x3. CN II-XII grossly intact PSYCH: Normal mood and affect Course Course Emergency Course: Patient updated on her workup and agrees with plan of care Vital Signs Vital signs: Vital Signs Temperature 97.9 F 05/28/24 19:47 Pulse Rate 83 05/28/24 19:47 Respiratory Rate 16 05/28/24 19:47 Blood Pressure 167/84 H 05/28/24 19:47 Pulse Oximetry 100 05/28/24 19:47 Oxygen Delivery Room Air 05/28/24 19:47 Temperature 97.9 F 05/28/24 19:47 Pulse Rate 83 05/28/24 19:47 Respiratory Rate 16 05/28/24 19:47 Blood Pressure 167/84 H 05/28/24 19:47 Pulse Oximetry 100 05/28/24 19:47 Oxygen Delivery Room Air 05/28/24 19:47 Procedures Laceration Laceration 1: Date: 05/28/24 Time: 23:43 Site: face Size (cm): 2 Description: linear Depth: simple, single layer Local Anesthetic: lidocaine 1% and with epi Amount of anesthesia used (mL): 2 Pre-repair: wound explored and irrigated ====== Skin Level ====== Skin layer closed with: nylon Size (cm): 5-0 Number of sutures: 2 Technique: simple, interrupted ====== Subcutaneous Layer ====== ====== Muscle Layer ====== ====== Tendon Layer ====== MDM - Fall MDM Narrative Medical decision making narrative: Patient presents to the emergency department after a fall today with head injury. She was trying to prep for her colonoscopy tomorrow. She was on the toilet started to feel very lightheaded and nauseous. She fell forward and hit her head. She did not lose consciousness. Cbc without leukocytosis. Metabolic panel with mild hypokalemia, this was replaced. Magnesium. Urine without evidence of infection or dehydration. CT brain and cervical spine without acute findings. Chest and pelvic x-rays without acute findings. Patient had a small laceration to her for read which was irrigated and closed with sutures. She reports she is up-to-date on tetanus. She is to follow up with primary provider. She was given warnings to return to the ER Differential Diagnosis Differential diagnosis: Likely compression fracture, concussion without loss of consciousness and other (Dehydration, electrolyte derangement) Lab Data Attestation: I reviewed the patient's lab results. 05/28/24 21:27 05/28/24 21:27 Labs: Lab Results 05/28/24 05/28/24 05/28/24 Range/Units 21:26 21:27 22:11 WBC 7.1 (4.5-10.0) K/mm3 RBC 4.74 (4.2-5.4) M/mm3 Hgb 14.5 (12.0-15.0) g/dL Hct 41.8 (37.0-47.0) % MCV 88.2 (80-100) fl MCH 30.6 (26-34) pg MCHC 34.7 (32-36) g/dl RDW 13.1 (11.5-14.5) % Plt Count 196 (150-375) k/mm3 MPV 9.0 (7.4-10.4) fl Immature Gran % (Auto) 0.1 (0-0.5) % Neut % (Auto) 71.0 (45.5-73.1) % Lymph % (Auto) 16.9 L (18.3-44.2) % Mcdonough % (Auto) 10.8 H (2.6-8.5) % Eos % (Auto) 0.8 (0-4.4) % Baso % (Auto) 0.4 (0.2-1.2) % Lymph # (Auto) 1.21 (0.9-3.2) K/mm3 Mcdonough # (Auto) 0.8 H (0.1-0.6) K/mm3 Eos # (Auto) 0.1 (0-0.3) K/mm3 Baso # (Auto) 0.0 (0.0-0.1) K/mm3 Abs Immat Gran (auto) 0.01 (0.00-0.031) K/mm3 Absolute Neuts (auto) 5.1 (1.3-6.7) K/mm3 Absolute Nucleated RBC 0.000 (0.0-0.012) K/mm3 Nucleated RBC % 0.0 (0.0-0.2) % Sodium 134 L (137-145) mmol/L Potassium 3.1 L (3.4-5.0) mmol/L Chloride 104 (98-107) mmol/L Carbon Dioxide 27 (22-30) mmol/L Anion Gap 3 L (4-12) mmol/L BUN 9 (7-17) mg/dL Creatinine 0.80 (0.7-1.0) mg/dL Estim Creat Clear Calc 38 ml/min Estimated GFR > 60 (59 - ) Glucose 97 (65-110) mg/dL Calcium 9.9 (8.4-10.2) mg/dL Magnesium 1.8 (1.6-2.3) mg/dL Total Bilirubin 1.0 (0.2-1.3) mg/dL AST 25 (14-36) U/L ALT 15 (6-35) U/L Alkaline Phosphatase 94 (38-126) U/L Total Protein 8.0 (6.3-8.2) g/dL Albumin 4.3 (3.5-5.1) g/dL Urine Color Yellow (Yellow) Urine Appearance Clear (Clear) Urine pH 6.5 (5.0-9.0) Ur Specific Noble 1.007 (1.001-1.035) Urine Protein Negative (Negative) mg/dL Urine Glucose (UA) Negative (Negative) mg/dL Urine Ketones Negative (Negative) mg/dL Ur Blood (Man) Negative (Negative) Urine Nitrate Negative (Negative) Urine Bilirubin Negative (Negative) Urine Urobilinogen 0.2 (<2.0) mg/dL Leukocyte Esterase Rfl Trace H (Negative) DELISA/UL Urine RBC 0-2 (0-2) /hpf Urine WBC 0-5 (0-3) /hpf Ur Squamous Epith Cells None seen (Few) /hpf Urine Bacteria None seen /hpf Urine Casts 0-2 Imaging Data Radiologist's impression: ITS Impressions Head CT 05/28/24 21:07 IMPRESSION: No acute intracranial findings. Pelvis X-Ray 05/28/24 21:48 IMPRESSION: No acute osseous abnormality pelvis. Chest X-Ray 05/28/24 21:50 IMPRESSION: No acute cardiopulmonary pathology. Cervical Spine CT 05/28/24 22:03 IMPRESSION: No acute osseous abnormality cervical spine. Critical Care Time Critical Care Time Critical Care Time: No Discharge Plan Discharge Clinical Impression: Laceration, Hypokalemia Fall Qualifiers: Encounter type: initial encounter Qualified Code(s): W19.XXXA - Unspecified fall, initial encounter Head injury Qualifiers: Encounter type: initial encounter Qualified Code(s): S09.90XA - Unspecified injury of head, initial encounter Patient Disposition: Home, Self-Care Condition: Stable Instructions: Care For Your Stitches (ED), Laceration (ED), Hypokalemia (ED), Head Injury (ED) Additional Instructions: Return to the emergency department if you experience fever, redness or swelling of your wound, abnormal drainage from your wound, vomiting, numbness, weakness, you pass out, or any other symptoms that are concerning to you. Rest. Ice to the area. Over the counter pain medication as needed. Apply antibiotic ointment daily. Clean with mild soap and water daily Follow-up with your primary care doctor for suture removal in 3-5 days. Prescriptions: No Action timolol maleate 0.5 % drops 1 drop RIGHT EYE Q12H tizanidine 2 mg capsule 2 mg PO TID PRN (Reason: Muscle Pain) Rx Instructions: take 2 tablets po q8hrs prn tramadol 50 mg tablet 50 mg PO Q6H PRN (Reason: pain) Qty: 30 0RF cyanocobalamin (vitamin B-12) [Vitamin B-12] 1,000 mcg Tablet 1,000 mcg PO QAM Qty: 30 2RF carvedilol 6.25 mg tablet 6.25 mg PO Q12H Rx Instructions: TAKE 1 TABLET BY MOUTH EVERY 12 HOURS WITH MEAL AND FOOD hydrochlorothiazide 25 mg tablet 25 mg PO DAILY Qty: 30 5RF Rx Instructions: TAKE 1 TABLET BY MOUTH DAILY losartan 25 mg tablet 25 mg PO DAILY Qty: 30 5RF Follow-up/Referrals: Chico Gates MD [Primary Care Provider] -
[2024-05-28 22:25] LABS: Add Urine Microscopic? YES; Appearance Urine Clear (Clear); Bacteria Urine None Seen /hpf; Bilirubin Urine Negative (Negative); Blood Urine Negative (Negative); Color Urine Yellow (Yellow); Glucose Urine UA Negative (Negative); Ketones Urine Negative (Negative); Leukocyte Esterase Ur Trace LEU/UL (Negative); Nitrate Urine Negative (Negative); Non Pathogenic Casts 0-2; Protein Urine Negative (Negative); RBC Urine 0-2 /hpf (0-2); Specific Grav Ur 1.007 (1.001-1.035); Squamous Epithelial Cell Urine None Seen /hpf (Few); Urobilinogen Urine 0.2 mg/dL (<2.0); WBC Urine 0-5 /hpf (0-3); pH Urine 6.5 (5.0-9.0)
[2024-05-28 22:29] LABS: Magnesium 1.8 mg/dL (1.6-2.3)
--- NOTE | 2024-05-28 22:35 | PC.NURSE ---
Called lab and asked to add on magnesium lab order and was told that it would be added @ [id number]
[2024-05-28] MEDS: POTASSIUM CHLORIDE 20 MEQ ER TABLET 40 MEQ PO (22:53)
[2024-05-28] MEDS: ACETAMINOPHEN 500 MG TABLET 1000 MG PO (23:01)
[2024-05-29 00:12] VITALS: BP 152/80; PULSE 86; RESP 15; O2SAT 100
== END 2024-05-29 00:14 | disposition home or self-care (01) ==
PROVIDERS: Emergency Provider Physician Assistant; PCP Family Medicine
DX: S01.81XA Laceration without foreign body of other part of head, initial encounter (principal); E87.6 Hypokalemia; I10 Essential (primary) hypertension; W18.12XA Fall from or off toilet with subsequent striking against object, initial encounter
CPT/HCPCS: 12011; 36415; 70450; 71046; 72125; 72170; 80053; 81001; 83735; 85025; 99284; A9270; J2004

== ENCOUNTER 2024-06-14 03:03 | Day surgery (SDC) | payer MEDICARE, SELFPAY ==
[2024-05-15 11:46] VITALS: BMI 26.6
[2024-06-12 14:56] VITALS: BMI 26.6
[2024-06-14 13:01] VITALS: BP 148/71; PULSE 88; RESP 18; TEMP 36.1; O2SAT 100
[2024-06-14] MEDS: LACTATED RINGERS 1,000 ML 150 ML IV CONT (13:24)
--- NOTE | 2024-06-14 13:53 | WPDANESEPPF ---
Anes - Initial Pre Proc Eval Procedure: Operation Date: 06/14/24 14:30 Proposed Procedures p Colonoscopy - Vinh Pulido MD Date/Time: 06/14/24 13:53 Surgeon: Vinh Pulido MD Pre Op Diagnosis: Personal hx of other malignant neoplasm intestine Patient Data Age: 84 Gender: F Height: 1.55 m Weight: 62 kg Last Vital Signs Temp 36.1 C L 06/14/24 13:01 Pulse 88 06/14/24 13:01 Resp 18 06/14/24 13:01 BP 148/71 H 06/14/24 13:01 Pulse Ox 100 06/14/24 13:01 O2 Del Method Room Air 06/14/24 13:01 Allergies Allergy/AdvReac Type Severity Reaction Status Date / Time codeine AdvReac Intermediate Nausea Verified 06/14/24 12:50 Home Medications ?Medication ?Instructions ?Recorded ?Confirmed ?Type timolol maleate 0.5 % eye drops 1 drop RIGHT EYE Q12H 05/14/19 06/14/24 History tizanidine 2 mg capsule 2 mg PO TID PRN Muscle Pain 05/14/19 05/15/24 History cyanocobalamin (vitamin B-12) 1,000 mcg PO QAM #30 tabs 06/02/23 06/14/24 Rx 1,000 mcg tablet (Vitamin B-12) tramadol 50 mg tablet 50 mg PO Q6H PRN pain #30 tabs 08/25/23 05/15/24 Rx hydrochlorothiazide 25 mg tablet 25 mg PO DAILY #30 tabs 10/18/23 06/14/24 Rx losartan 25 mg tablet 25 mg PO DAILY #30 tabs 12/05/23 06/14/24 Rx carvedilol 6.25 mg tablet 6.25 mg PO Q12H 05/15/24 06/14/24 History sodium,potassium,mag sulfates 17.5 354 ml PO ONCE #354 mL 06/12/24 Rx gram-3.13 gram-1.6 gram oral soln (Suprep Bowel Prep Kit) Patient hx anesthesia problems: none Family hx anesthesia problems: none Results Review: All pre-operative results and documents have been reviewed as part of the pre-operative evaluation. [facility] Past Medical History Medical History Non-healing surgical wound right carotid scar Thyroid nodule Primary adenocarcinoma of ascending colon Ataxia Cerebrovascular disease Fecal occult blood test positive Symptomatic anemia Impacted cerumen of both ears Chest pain BARNETT (dyspnea on exertion) Dyslipidemia Essential hypertension Preop cardiovascular exam Surgical History Surgical History Hx of colectomy Hx of colonoscopy History of right knee joint replacement History of left hip replacement H/O parotidectomy H/O: hysterectomy H/O tubal ligation Hx of tonsillectomy H/O eye surgery Family History Family History Mother Asthma Heart disease Heart attack Father Heart attack Daughter Cerebral palsy Vision disorder Sibling Asthma Social History Social History Social History: Caffeine-soda Smoking status: Never smoker Second hand tobacco smoke exposure: No Alcohol intake: never Substance use: never Substance use type: does not use Do You Feel Safe in your Home?: Yes Lack of Transportation: No Lack of Food: Never True Current Housing: I Have Housing Concerned About Future Housing: No Difficulty Paying Gas/Electric Bills: No Difficulty Paying for Meds: No Currently Unemployed: No Education: Master's Degree or Higher Difficulty w/ Childcare or Family Care: No Living arrangements: alone Occupation/Education: retired Additional occupation/education comments: [employer] Gender identity (if verbalized by the patient): Female Spiritual care concerns: No Anes - Eval Final PreProcedure Day of Procedure 06/14/24 13:53 Patient weight: overweight Heart: regular rate and rhythm Lungs: clear to auscultation Airway: Mallampati scale class 1 Neurological: alert and oriented Last oral intake: >/= 8 hours ASA classification: III Emergent: no Anesthetic plan: proceed Anesthesia type and monitoring: general GIVS Results Review: All pre-operative results and documents have been reviewed as part of the pre-operative evaluation. Informed Consent: The patient's anesthetic plan and its attendant risks and benefits were discussed with the patient/family/POA. Questions were solicited and answers provided to the satisfaction of the patient/family/POA.
--- NOTE | 2024-06-14 13:56 | PM.IMHP ---
H&P: HPI History of Present Illness Date/Time: 06/14/24 13:56 Chief Complaint: Personal history of colon cancer Narrative: In may 2023 the patient was diagnosed with colon cancer located in the ascending colon, undergoing right hemicolectomy. She is here for her follow up colonoscopy post resection. She is asymptomatic from the GI standpoint. Review of Systems Review of Systems: All systems reviewed & are unremarkable except as noted in HPI and below PMFSH Past Medical History Medical History Non-healing surgical wound right carotid scar Thyroid nodule Primary adenocarcinoma of ascending colon Ataxia Cerebrovascular disease Fecal occult blood test positive Symptomatic anemia Impacted cerumen of both ears Chest pain BARNETT (dyspnea on exertion) Dyslipidemia Essential hypertension Preop cardiovascular exam Surgical History Surgical History Hx of colectomy Hx of colonoscopy History of right knee joint replacement History of left hip replacement H/O parotidectomy H/O: hysterectomy H/O tubal ligation Hx of tonsillectomy H/O eye surgery Family History Family History Mother Asthma Heart disease Heart attack Father Heart attack Daughter Cerebral palsy Vision disorder Sibling Asthma Social History Social History Social History: Caffeine-soda Smoking status: Never smoker Second hand tobacco smoke exposure: No Alcohol intake: never Substance use: never Substance use type: does not use Do You Feel Safe in your Home?: Yes Lack of Transportation: No Lack of Food: Never True Current Housing: I Have Housing Concerned About Future Housing: No Difficulty Paying Gas/Electric Bills: No Difficulty Paying for Meds: No Currently Unemployed: No Education: Master's Degree or Higher Difficulty w/ Childcare or Family Care: No Living arrangements: alone Occupation/Education: retired Additional occupation/education comments: [employer] Gender identity (if verbalized by the patient): Female Spiritual care concerns: No Meds Home Medications and Allergies Home Medications ?Medication ?Instructions ?Recorded ?Confirmed ?Type timolol maleate 0.5 % eye drops 1 drop RIGHT EYE Q12H 05/14/19 06/14/24 History tizanidine 2 mg capsule 2 mg PO TID PRN Muscle Pain 05/14/19 05/15/24 History cyanocobalamin (vitamin B-12) 1,000 mcg PO QAM #30 tabs 06/02/23 06/14/24 Rx 1,000 mcg tablet (Vitamin B-12) tramadol 50 mg tablet 50 mg PO Q6H PRN pain #30 tabs 08/25/23 05/15/24 Rx hydrochlorothiazide 25 mg tablet 25 mg PO DAILY #30 tabs 10/18/23 06/14/24 Rx losartan 25 mg tablet 25 mg PO DAILY #30 tabs 12/05/23 06/14/24 Rx carvedilol 6.25 mg tablet 6.25 mg PO Q12H 05/15/24 06/14/24 History sodium,potassium,mag sulfates 17.5 354 ml PO ONCE #354 mL 06/12/24 Rx gram-3.13 gram-1.6 gram oral soln (Suprep Bowel Prep Kit) Allergies Allergy/AdvReac Type Severity Reaction Status Date / Time codeine AdvReac Intermediate Nausea Verified 06/14/24 12:50 Vital Signs Vital Signs - 24 hr 06/14/24 13:01 Temperature 97 F L Pulse Rate 88 Respiratory Rate 18 Blood Pressure 148/71 H Pulse Oximetry 100 Oxygen Delivery Room Air Exam Const: General: cooperative and healthy appearing Resp: Effort & Inspection: normal respiratory effort and able to speak in complete sentences Auscultation: clear to auscultation bilaterally Cardio: Rate: regular rate Rhythm: regular rhythm GI: Inspection: normal to inspection GI Palp: No No hepatosplenomegaly present Auscultation: normal bowel sounds Rectal Exam: deferred Skin: General skin exam: normal color Psych: Appearance: grossly normal Mental Status: mental status grossly normal Assessment and Plan Assessment and plan (1) Primary adenocarcinoma of ascending colon: Code(s): C18.2 - Malignant neoplasm of ascending colon Status: Acute Assessment and Plan: Patient deemed a good candidate for a colonoscopy. Consent signed. Will proceed.
[2024-06-14 14:11] VITALS: BP 98/59; PULSE 85; RESP 22; O2SAT 96
[2024-06-14 14:21] VITALS: BP 133/77; PULSE 90; RESP 23; O2SAT 100
[2024-06-14 14:31] VITALS: BP 131/76; PULSE 93; RESP 24; O2SAT 99
== END 2024-06-14 14:50 | disposition home or self-care (01) ==
PROVIDERS: PCP Family Medicine; Visit Provider Internal Medicine Gastroenterology
PROC: 0DJD8ZZ Inspection of Lower Intestinal Tract, Via Natural or Artificial Opening Endoscopic (ICD-10-PCS; CPT 45378; principal; 2024-06-14 14:30)
DX: Z08 Encounter for follow-up examination after completed treatment for malignant neoplasm (principal); E78.5 Hyperlipidemia, unspecified; I10 Essential (primary) hypertension; D64.9 Anemia, unspecified; Z79.891 Long term (current) use of opiate analgesic; Z98.890 Other specified postprocedural states; Z98.0 Intestinal bypass and anastomosis status; Z90.49 Acquired absence of other specified parts of digestive tract; Z98.51 Tubal ligation status; Z86.79 Personal history of other diseases of the circulatory system; Z85.038 Personal history of other malignant neoplasm of large intestine; Z82.49 Family history of ischemic heart disease and other diseases of the circulatory system
CPT/HCPCS: 45378; J2704; J7120

== ENCOUNTER 2024-08-29 10:47 | Outpatient (CLI) | payer MEDICARE, SELFPAY ==
[2024-08-29 11:06] LABS: Basophils Absolute Auto 0.1 K/mm3 (0.0-0.1); Basophils Percent Auto 1.3 % (0.2-1.2); Eosinophils Absolute Auto 0.1 K/mm3 (0-0.3); Eosinophils Percent Auto 2.3 % (0-4.4); Hematocrit 43.1 % (37.0-47.0); Hemoglobin 14.7 g/dL (12.0-15.0); Immature Granulocyte Absolute 0.01 K/mm3 (0.00-0.031); Immature Granulocyte Percent A 0.2 % (0-0.5); Lymphocytes Absolute Auto 2.03 K/mm3 (0.9-3.2); Lymphocytes Percent Auto 38.7 % (18.3-44.2); Mean Corpuscular HGB Conc 34.1 g/dl (32-36); Mean Corpuscular Hemoglobin 30.6 pg (26-34); Mean Corpuscular Volume 89.8 fl (80-100); Mean Platelet Volume 9.4 fl (7.4-10.4); Monocytes Absolute Auto 0.7 K/mm3 (0.1-0.6); Monocytes Percent Auto 12.4 % (2.6-8.5); Neutrophils Absolute Auto 2.4 K/mm3 (1.3-6.7); Neutrophils Percent Auto 45.1 % (45.5-73.1); Platelet Count Result 189 k/mm3 (150-375); Red Cell Distribution Width 13.4 % (11.5-14.5); White Blood Count 5.2 K/mm3 (4.5-10.0)
[2024-08-29 12:15] LABS: Alanine Aminotransferase 28 U/L (6-35); Albumin Level 4.2 g/dL (3.5-5.1); Alkaline Phosphatase 132 U/L (38-126); Anion Gap 8 mmol/L (4-12); Aspartate Amino Transferase 27 U/L (14-36); Bilirubin,Total 0.4 mg/dL (0.2-1.3); Blood Urea Nitrogen 16 mg/dL (7-17); Calcium 9.9 mg/dL (8.4-10.2); Carbon Dioxide 29 mmol/L (22-30); Chloride 103 mmol/L (98-107); Estimated Glomerular Filt Rate > 60; Glucose 105 mg/dL (65-110); Potassium 3.3 mmol/L (3.4-5.0); Sodium 140 mmol/L (137-145)
--- OUTSIDE RECORDS SUMMARY | 2024-08-29 12:24 | XMS_ITS | Clinical Summary ---
[facility] Address [address] [place] [address] Care Team Providers Care Life Specialist Name Role Phone Chico Gates MD Primary Care Provider [phone] Allergies Active Allergy Reactions Criticality Noted Date Comments Codeine Other (See Comments) 07/24/2023 other Medications timoloL maleate (TIMOPTIC) 0.25% solution 1 Drop 2 times daily. Active tiZANidine (ZANAFLEX) 2 mg Capsule Take 2 mg by mouth. Active Active Problems No known active problems Encounters Date Type Department Care Team Description 08/14/2024 External Device Data [facility] ABSTRACTION Provider, Abstract 07/23/2024 External Device Data [facility] ABSTRACTION Provider, Abstract 07/17/2024 External Device Data [facility] ABSTRACTION Provider, Abstract 07/17/2024 External Device Data [facility] ABSTRACTION Provider, Abstract from Last 3 Months Family History Medical History Relation Name Comments Colon Cancer Brother Ovarian Cancer Sister Relation Name Status Comments Brother Father Mother Sister Social History Tobacco Use Types Packs/Day Years Used Date Smoking Tobacco: Never Smokeless Tobacco: Never Tobacco Cessation:Counseling Given: Not Answered Alcohol Use Standard Drinks/Week Comments Never 0 (1 standard drink = 0.6 oz pur e alcohol) Comments Unknown Sex and Gender Information Value Date Recorded Sex Assigned at Not on file Legal Sex Female 5:06 AM 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 GENERATOR 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 Gender Identity Not on file Sexual Orientation Not on file Last Filed Vital Signs Vital Sign Reading Time Taken Comments Blood Pressure 142/78 05/09/2024 3:19 PM PATTERN GENERATOR OPERATOR Pulse 78 05/09/2024 3:19 PM PATTERN GENERATOR OPERATOR Temperature 36.5 C (97.7 F) 05/09/2024 3:19 PM PATTERN GENERATOR OPERATOR Respiratory Rate 16 05/09/2024 3:19 PM PATTERN GENERATOR OPERATOR Oxygen Saturation 95% 05/09/2024 3:19 PM PATTERN GENERATOR OPERATOR Inhaled Oxygen Concentration - - Weight 63.5 kg (140 lb) 05/09/2024 3:19 PM PATTERN GENERATOR OPERATOR Height 156.2 cm (5' 1.5 ) 07/24/2023 9:51 AM PATTERN GENERATOR OPERATOR Body Mass Index 26.02 07/24/2023 9:51 AM PATTERN GENERATOR OPERATOR Plan of Treatment Upcoming Encounters Date Type Department Care Team (Late st Contact Info) Description 08/30/2024 8:45 AM PATTERN GENERATOR OPERATOR Office Visit [facility] Oncology and Hematology - [place] [address] [facility] [address] [place] [address] Anirudh Adair MD [address] [place] [address] Health Maintenance Due Date Last Done Comments DTAP/TDAP/TD VACCINES (1 - Tdap) 1959 PNEUMOCOCCAL VACCINE 50+ YEA RS (1 of 1 - PCV) 1990 ZOSTER VACCINE (1 of 2) 1990 OSTEOPOROSIS SCREENING 2005 RSV VACCINE (60+ or ) (1 - 1-dose 75+ series) 2015 INFLUENZA VACCINE (#1) 2024 0, 05/09/2018, 04/01/2015 [place] Prev entative Visit/Annual Wellness Visit 06/26/2024 Insurance [employer] O [facility] Care Teams Life Specialist Relationship Specialty Start Date End Date Chico Gates MD [address] [place] [address] PCP - General Family Practice 07/24/23
--- OUTSIDE RECORDS SUMMARY | 2024-08-29 12:24 | XMS_ITS | Data Portability ---
Author Organization ARNALDO HARRYDorota Disla Address [address] [place] [address] Assessment No assessment recorded. Plan of Treatment Reminders Order Date Submit Date Provider Last Modified By Organization Details Last Modified Time Details Appointments None recorded . Lab None recorded . Referral otolaryn gologist referral - Please call patient for appointm ent, thanks! 2022 023 [facility], [address] [facility], [place], [address], 3 05:01:41 Procedures None recorded . Surgeries None recorded . Imaging None recorded . Medication Orders losartan 25 mg tablet 2022 023 [id number], [address] [place], [place], [id number], 3 14:56:52 hydrochl orothiaz aneudy 25 mg tablet 2022 023 [facility] #83144, [address] [place], [place], [id number], 3 14:56:48 meclizin e 12.5 mg tablet 2020 021 [facility] #69216, [address] [place], [place], [id number], 1 11:29:35 meclizin e 12.5 mg tablet 2019 020 [facility] #[id number], [address] [place], [place], [id number], 0 10:29:05 calcium 600 mg (as carbonat e)-vitam in D3 10 mcg (400 unit) tablet 2019 020 [facility]50218, [address] [facility], [place], [place], [id number], 1 10:50:41 Patient TargetsNo targets recorded. Patient Instructions Encounter Date Encounter Id Patient Instructions Last Modified By Organization Details Last Modified Time 01/31/2020 [id number] osteoarthritis: care instructions jhsieh Not available 01/31/2020 12:32:11 donovan's palsy: care instructions jhsieh Not available 01/31/2020 12:32:12 04/13/2020 [id number] thyroid nodules: care instructions sieh Not available 04/13/2020 10:29:00 benign paroxysma l positional vertigo (bppv): care instructions sieh Not available 04/13/2020 10:28:59 neck arthritis: exercises jhsieh Not available 04/13/2020 10:28:59 02/02/2021 [id number] benign paroxysma l positional vertigo (bppv): care instructions sieh Not available 02/02/2021 11:29:26 10/05/2022 [id number] heart valve disease: care instructions jhsieh Not available 10/05/2022 14:56:39 mitral valve prolapse: care instructions sieh Not available 10/05/2022 14:56:39 tetanus and diphtheria booster: care instructions sieh Not available 10/05/2022 14:59:47 benign paroxysma l positional vertigo (bppv): care instructions sieh Not available 10/05/2022 14:56:39 learning about high blood pressure jhsieh Not available 10/05/2022 14:56:39 12/07/2022 [id number] benign paroxysma l positional vertigo (bppv): care instructions sieh Not available 12/07/2022 17:32:41 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 Referring Physician: Marlene Carbajal, Internal Medicine, Encounter Date: 12/07/2022 Results Created Date Observation Date Name Description Value Unit Range Abnormal Flag Note LastModifiedBy Organization Detail LastModifiedTime 03/20/20 20 03/20/2020 fine needl e aspir ation , ultra sound guide d, thyro id (PROC ) No observ ation record ed. [facility] (Imaging) [address] [place], [address], 03/20/2020 14:24:01 04/21/20 22 04/21/2022 MRI, ankle , w/o contr ast No observ ation record ed. [email or web address] [facility] [address] [place], [address], 04/21/2022 16:04:12 05/27/20 23 05/27/2023 CT, abdom en + pelvi s, w/o contr ast No observ ation record ed. [address], [place], [address], 05/30/2023 16:42:55 06/01/20 23 06/01/2023 CT, head, w/o contr ast No observ ation record ed. [address] [facility], [place], [address], 06/02/2023 18:31:12 Result Notes None recorded. 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 Not Available [facility] 2 08:19:33 Dizziness 048289813 Active Not Available [facility] 2 08:19:33 Chronic osteoarthr itis 24193432 Active Not Available [facility] 2 08:19:33 Chronic low back pain 391893031 Active Not Available [facility] 2 08:19:33 Neck pain 22536524 Active Not Available [facility] 2 08:19:33 Lower abdominal pain 02657890 Active Not Available [facility] 2 08:19:33 Essential hypertensi on 64254622 Active Not Available [facility] 2 08:19:33 Retinal disorder 49759859 Active Not Available [facility] 2 08:19:33 Chronic neck pain 0392968033834 Active Not Available [facility] 2 08:19:33 Pain in right knee Active Not Available [facility] 2 08:19:33 Hip pain 45381447 Active Not Available [facility] 2 08:19:33 Problem Notes None recorded. Procedures Surgical History Date Name Laterality Status Provider Name and Address Organization Details Recorded Time Eye Surgery completed Johanny Sanchez MA [facility] 08/04/2014 16:05:55 Tonsillectomy completed Johanny tariq MA [facility] 08/04/2014 16:05:55 Tubal Ligation completed Johanny prater MA [facility] 08/04/2014 16:05:55 Imaging Results Imaging Date Name Status LastModified by Organiz ation Details LastModified Time 03/20/2020 fine needle aspiration, ultrasound guided, thyroid (PROC) completed [facility] (Imaging) [address] [place], [address], 03/20/2020 14:24:01 04/21/2022 MRI, ankle, w/o contrast completed [address] Add On Lab Orders [address] [place], [address], 04/21/2022 16:04:12 05/27/2023 CT, abdomen + pelvis, w/o contrast completed [address], [address], 05/30/2023 16:42:55 06/01/2023 CT, head, w/o contrast completed [address], [address], 06/02/2023 18:31:12 Procedure Notes None recorded. Medical Equipment None Reported. Allergies No known drug allergies Medications Name Sig Start Date Stop Date Status Note LastModified by Organization Details LastModified Time shingrix 50 mcg/0.5ml susr 11/21 completed Not Available Not Available Not Available tramadol hcl 50 mg tabs 02/02 completed Not Available Not Available Not Available carvedilol 6.25 mg tabs 02/02 completed Not Available Not Available Not Available celecoxib 200 mg capsule 03/19 completed Not Available Not Available Not Available cyclobenzap rine 10 mg tablet TAKE ONE TABLET BY MOUTH THREE TIMES DAILY NEEDED 10/05 completed Not Available Not Available Not Available amoxicillin 500 mg capsule 12/26 completed Not Available Not Available Not Available carvedilol 6.25 mg tablet TAKE 1 TABLET BY MOUTH EVERY 12 HOURS WITH MEAL AND FOOD active Not Available Not Available No t Available tizanidine 2 mg tablet 02/02 completed Not Available Not Available Not Available Klor-Con 10 mEq tablet,exte nded release take one tablet by mouth daily 12/26 completed Not Available Not Available Not Available polyethylen e glycol 3350 17 gram oral powder packet 03/19 completed Not Available Not Available Not Available lisinopril 20 mg-hydrochl orothiazide 12.5 mg tablet 03/19 completed Not Available Not Available Not Available pravastatin 40 mg tablet Take 1 tablet every day by oral route at dinner for 30 days. 12/26 completed Not Available Not Available Not Available tizanidine 4 mg tablet TAKE 1 TABLET BY MOUTH THREE TIMES DAILY 10/05 completed Not Available Not Available Not Available hydrocodone 5 mg-acetamin ophen 325 mg tablet TAKE 1 TABLET BY MOUTH EVERY 4 HOURS NEEDED FOR PAIN 10/05 completed Not Available Not Available Not Available meloxicam 15 mg tablet Take 1 tablet every day by oral route for 30 days. 12/26 completed Not Available Not Available Not Available lisinopril 20 mg tablet TAKE 2 TABLETS BY MOUTH DAILY 12/26 completed Not Available Not Available Not Available prednisone 20 mg tablet 03/19 completed Not Available Not Available Not Available meclizine 12.5 mg tablet TAKE 1 TABLET BY MOUTH THREE TIMES DAILY NEEDED active Not Available Not Available No t Available acetaminoph en 300 mg-codeine 30 mg tablet 12/26 completed Not Available Not Available Not Available amlodipine 5 mg tablet Take 2 tablets every day by oral route for 30 days. 02/02 completed Not Available Not Available Not Available tramadol 50 mg tablet Take 1 tablet every day by oral route as needed for 30 days. 10/05 completed Not Available Not Available Not Available Timolol Maleate (Ophth) 0.25 % (gelFrm) eye solution INSTILL 1 DROP INTO AFFECTED EYE(S) BY OPHTHALMI C ROUTE ONCE DAILY 03/19 completed Not Available Not Available Not Available famotidine 20 mg tablet 12/26 completed Not Available Not Available Not Available estradiol 1 mg tablet 12/26 completed Not Available Not Available Not Available pravastatin 10 mg tablet 12/26 completed Not Available Not Available Not Available amlodipine 10 mg tablet Take 1 tablet every day by oral route for 30 days. 12/26 completed Not Available Not Available Not Available hydrocodone 7.5 mg-acetamin ophen 325 mg tablet 03/19 completed Not Available Not Available Not Available fluorometho lone 0.1 % eye drops,suspe nsion INSTILL ONE DROP INTO LEFT EYE THREE TIMES DAILY UNTIL SEEN AT NEXT VISIT active Not Available Not Available No t Available losartan 25 mg tablet TAKE 1 TABLET BY MOUTH EVERY DAY DIRECTED active Not Available Not Available No t Available gabapentin 300 mg capsule Take 1 capsule 3 times a day by oral route for 30 days. 12/26 completed Not Available Not Available Not Available lisinopril 20 mg-hydrochl orothiazide 25 mg tablet Take 1 tablet every day by oral route for 30 days. 12/26 completed Not Available Not Available Not Available hydrochloro thiazide 25 mg tablet Take 1 tablet(s) every day by oral route as directed for 90 days. active Not Available Not Available No t Available ibuprofen 600 mg tablet 12/26 completed Not Available Not Available Not Available methylpredn isolone 4 mg tablets in a dose pack FOLLOW PACKAGE DIRECTION S 10/05 completed Not Available Not Available Not Available timolol maleate 0.5 % eye drops INSTILL 1 DROP IN THE RIGHT EYE TWICE DAILY active Not Available Not Available No t Available timolol maleate 0.25 % eye gel forming solution 12/26 completed Not Available Not Available Not Available neomycin 3.5 mg/g-polymy melania B 10,000 unit/g-dexa meth 0.1 % eye oint APPLY TO LEFT UPPER LID THREE TIMES DAILY active Not Available Not Available No t Available enoxaparin 40 mg/0.4 mL subcutaneou s syringe 03/19 completed Not Available Not Available Not Available metoprolol tartrate 25 mg tablet 02/02 completed Not Available Not Available Not Available tizanidine 2 mg capsule TAKE 1 CAPSULE BY MOUTH EVERY NIGHT AT BEDTIME 12/26 completed Not Available Not Available Not Available Klor-Con 10 12/26 completed Not Available Not Available Not Available MoviPrep 100 gram-7.5 gram-2.691 gram oral powder packet 12/26 completed Not Available Not Available Not Available calcium 600 mg (as carbonate)- vitamin D3 10 mcg (400 unit) tablet Take 2 tablets every day by oral route after meals for 90 days. 02/02 completed Not Available Not Available Not Available potassium chloride ER 20 mEq tablet,exte nded release TAKE 1 TABLET BY MOUTH DAILY active Not Available Not Available No t Available Shingrix (PF) 50 mcg/0.5 mL intramuscul ar suspension, kit active Not Available Not Available Not Available Vitals Date Recorded Body height Body mass index (BMI) Body weight Body temperature Oxygen saturation Oxygen saturation in Arterial blood by Pulse oximetry Heart rate Systolic blood pressure Diastolic blood pressure Provider Name and Address Organization Details Last Updated DateTime 1 153.67 cm 26.7 kg/m2 94468.3 4 g 98.4 [degF] 94 % 94 % 80 /min 138 mm[Hg] 74 mm[Hg] Michael Pal MA [place] [facility] 1 10:56:46 Date Recorded Body weight Heart rate Oxygen saturation Oxygen saturation in Arterial blood by Pulse oximetry Systolic blood pressure Diastolic blood pressure Provider Name and Address Organization Details Last Updated DateTime 3 22334.0 1 g 97 /min 98 % 98 % 140 mm[Hg] 80 mm[Hg] Digna Gaye ANNA MARIE [facility] 3 12:04:13 Date Recorded Body height Body mass index (BMI) Body weight Oxygen saturation Oxygen saturation in Arterial blood by Pulse oximetry Heart rate Systolic blood pressure Diastolic blood pressure Provider Name and Address Organization Details Last Updated DateTime 3 153.67 cm 26.7 kg/m2 21898.6 2 g 98 % 98 % 83 /min 142 mm[Hg] 80 mm[Hg] Jordynamanda Silverman MA [facility] 3 16:53:28 Social History Question Answer Notes LastModified by Organizat ion Details LastModified Time Tobacco Smoking Status Never Smoker ANNA MARIE Cohen, [facility] 08/04/2014 16:08:24 What Was The Date Of Your Most Recent Tobacco Screening? 12/29/2017 Information n ot available 01/17/2019 Sex: Unknown Functional Status None recorded. Mental Status None recorded. Family History Relationship Description Onset Age of this Age Resolved Age Notes LastModified by Organization Details LastModified Time Mother Heart disease [email or web address] Not available 2014 16:05:55 Mother Asthma [email or web address] Not available 02/2015 16:05:55 Father Heart disease [email or web address] Not available 2014 16:05:55 Brother Hypertensive disorder [email or web address] Not available 2014 16:05:55 Sister Hypertensive disorder [email or web address] Not available 2014 16:05:55 Medical History Condition Response Muscle, Joint, or Bone Problems Y High Blood Pressure Y High Cholesterol Y Gynecological HistoryNo gynecological history recorded. Obstetrics History GPAL:G 0 P 0 0 0 0 Immunizations Vaccine Type Date Status Note Provider Nam e and Address Organization Details Recorded Time Influenza, adjuvanted, trivalent, PF 05/09/2018 completed Not Available [facility] 2021 08:19:33 Influenza, high-dose, quadrivalent, PF 05/06/2020 completed Not Available [facility] 2 08:19:33 Influenza, split virus, quadrivalent, PF 04/01/2015 completed Not Available [facility] 0 02:39:16 Past Encounters Encounter ID Performer Location Encounter Start Date Encounter Closed Date Diagnosis/Indication Diagnosis SNOMED-CT Code Diagnosis ICD10 Code Diagnosis Note [id number] MD Carin Sinclair (Adult Med) [address] [place] [phone] 0 08/04/2014 15:28:35 08/04/2014 18:22:06 Hypertensive disorder 84105606 Hyperlipidemia 41961326 Chronic back pain 780783541 Blind right eye 289117060 Dizziness 499825146 [id number] ANKIT Oseguera (Adult Med) [address] [place] [phone] 0 09/15/2014 15:32:06 09/15/2014 17:48:20 Blind right eye 071821188 Hyperlipidemia 23586447 Hypertensive disorder 52984824 Chronic osteoarthritis 04555121 [id number] ANKIT Oseguera (Adult Med) [address] [place] [address] [id number] 10/14/2014 16:05:58 10/14/2014 17:30:46 Hypertensive disorder 49961917 Chronic low back pain 771885924 Neck pain 33296652 [id number] MD Carin Sinclair (Adult Med) [address] [place] [address] [phone] 03/23/2015 10:34:11 03/23/2015 11:35:34 Hypertensive disorder 97829669 Chronic low back pain 753409835 Lower abdominal pain 59931660 [id number] Carin (Adult Med) [address] [place] [address] [phone] 0 04/01/2015 10:18:00 04/01/2015 14:05:21 Lower abdominal pain 38349398 R10.30 Influenza vaccine needed 1365428932 106 Z28.3 Administra tion of pneumococcal vaccine 31854670 Z23 Essential hypertension 65987604 I10 [id number] MD Carin Sinclair (Adult Med) [address] [place] [address] [phone] 0 12/04/2015 10:03:57 12/08/2015 09:38:39 Chronic osteoarthritis 65553229 M19.90 Chronic low back pain 27 0765932 M54.5 Essential hypertension 22731165 I10 Hyperlipidemia 47060826 E78.5 Neck pain 73852863 M54.2 Retinal disorder 2773637 9 H35.9 [id number] Eve Olivo is Carin (Adult Med) [address] [place] [address] [id number] 0 01/19/2016 15:02:22 01/19/2016 18:07:41 Chronic osteoarthritis 37301991 M19.90 Hyperlipidemia 29074048 E78.5 Chronic neck pain 959437 9981 107 M54.2 Pain in right knee 42964 10640 55236 M25.561 Hip pain 72161893 M25.55 2 Hypertensive disorder 38 761147 I10 [id number] [facility] [address] [place] [address] [id number] 0 12/26/2017 09:50:25 01/01/2018 14:02:41 Osteoarthritis of hip 254030834 M16.12 medically clear ofr hip surgery. Impacted c erumen of bilateral ears 3649124179 553377 H61.23 ENT referral. [id number] MD Carin Sinclair (Adult Med) [address] [place] [address] [phone] 0 12/29/2017 09:52:29 12/29/2017 14:26:17 Essential hypertension 66390130 I10 Well controlled , low salt diet. Under the care of to cardiologemmanuel guzman Osteoarthr itis of knee 687913709 M17.11 Had cortisone shot before. Degenerati ve joint disease involving multiple joints 313640879 M15.9 Left hip, will call Dr. Dhruv Avila office for this medical clearnce. Chronic low back pain 27 7662042 M54.5 Degenerati ve lumbar disc, was told not a good surgical candidate Impacted cerumen 0909142 6 H61.23 [id number] MD Carin Sinclair (Adult Med) [address] [place] [address] [phone] 0 03/19/2019 16:18:58 03/20/2019 12:15:11 Pre-surgery evaluation 294703728 Z01.818 No contraindi cation of right knee operation. Tino Baltazar office will be contacted for this issue. [id number] MD Carin Sinclair (Adult Med) [address] [place] [address] [phone] 0 11/22/2019 09:45:42 11/22/2019 16:40:18 Chronic low back pain 766298394 M54.5 Degenerati ve lumbar disc, was told not a good surgical candidate, she agreed to sign on drug contract and drug test. Chronic ne ck pain for greater than 3 months 4643635264 98479 M54.2 Discussed with patient. [id number] MD Carin Sinclair (Adult Med) [address] [place] [address] [phone] 0 11/22/2019 11:19:08 11/25/2019 14:36:15 Chronic neck pain 5925246681 107 M54.2 Chronic low back pain 27 7220465 M54.5 Degenerati ve lumbar disc, was told not a good surgical candidate [id number] [facility] [address] [place] [address] [phone] 0 11/28/2019 08:09:17 11/29/2019 13:20:31 Sensation of foreign body in throat 5608475115 05142 R09.89 She said that she has growth in her throat. 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 [id number] MD Carin Sinclair (Adult Med) [address] [place] [address] [phone] 01/31/2020 08:02:44 02/04/2020 06:44:27 Donovan's palsy 717025775 G51.0 Discussed with patient, she agreed for thr medication as ordered, and will inform this office this week for the prognosis. She said tht she has full recovery 01-31-2020 . Degenerati ve joint disease involving multiple joints 701947927 M15.9 Left hip, will call Dr. Dhruv Avila office for this medical clearnce. [id number] MD Carin Sinclair (Adult Med) [address] [place] [address] [phone] 0 04/13/2020 08:39:51 04/14/2020 11:55:32 Thyroid nodule 152059492 E04.1 Pending biopsy. Cervical arthritis 79804 1000 M46.92 Stable. Benign par oxysmal positional vertigo 260988433 H81.13 Discussed with patient. Willing to try medication . [id number] MD Carin Sinclair (Adult Med) [address] [place] [address] [phone] [id number] 02/02/2021 10:34:38 02/05/2021 10:15:18 Cataract 480585477 H26.9 Normal PE, ambulating , oriented times 4 , lungs clear to auscultati on, heart regular beat, no murmur, abdomen soft no mass, legs no edema, ROM of neck , shoulders, elbows, hands, hips , knees , feet and lower back are normal. No objection of left eye cataract operation. will contact her ophthalmol ogist office. Benign par oxysmal positional vertigo 657020363 H81.13 Discussed with patient. Willing to try medication . [id number] MD Carin Sinclair (Adult Med) [address] [place] [address] [phone] 10/05/2022 11:50:05 10/06/2022 15:06:40 Essential hypertension 89861202 I10 Well controlled , low salt diet. Under the care of her cardiologi st. On carvedilol 6.23mg bid. Benign par oxysmal positional vertigo 556098901 H81.13 Discussed with patient. Willing to try medication . Just refill meclizine 12.5 mg tid prn. Mitral valve prolapse 40 8468561 I34.1 Under the care of her cardiologi st. SARS-CoV-2 antigen vaccine declined 0323013813 Z28.21 She refused today 10-05-22. Administra tion of diphtheria, pertussis, and tetanus vaccine 597411651 Z23 She declined today 10-05-22. [id number] MD Carin Sinclair (Adult Med) [address] [place] [address] [phone] 0 12/07/2022 16:41:03 12/09/2022 12:42:47 Adverse reaction to drug 95315076 T50.905A She thinks the meclizine migh have cause her taste and lips to be numb, she stopped about 2 weeks ago. But symptoms persists. no difficulty of breathing. no sore throat. , she put hydrogen peroxide in her mouth trying to comfort herself, She agreed to try OTC xylocaine oral lozenges. Benign par oxysmal positional vertigo 432158600 H81.13 Discussed with patient. Willing to try medication . Just refill meclizine 12.5 mg tid prn. Meclizine has been stopped. She agreed for the ENT referral for her vertigo or dizziness. Health Concerns Section Related Observation LastModified by Organization Detai ls LastModified Time None Recorded Concern Status LastModified by Organization Details LastModified Time None Recorded Advance Directives Directive None Recorded Payers Encounter Date Sequence Insurance Name Policy Number Policy Pereyra Covered Member ID Pereyra Member ID Guarantor Name 01/31/2020 2 [place] Shania Flores Harsha [id number] Shania Flores Harsha 01/31/2020 1 [employer] (MEDICARE REPLACEMENT/AD VANTAGE - HMO) [id number] Shania Flores Harsha [id number] Shania Flores Harsha 04/13/2020 2 [place] Shania Flores Harsha [id number] Shania Flores Harsha 04/13/2020 1 [employer] (MEDICARE REPLACEMENT/AD VANTAGE - HMO) [id number] Shania Flores Harsha [id number] Shania Flores Harsha 02/02/2021 1 [employer] (MEDICARE REPLACEMENT/AD VANTAGE - HMO) [id number] Shania Flores Harsha [id number] Shania Flores Harsha 10/05/2022 1 [employer] (MEDICARE REPLACEMENT PPO) [id number] 1 Shaniazheng Rodriguezt [id number] Shania Mark Harsha 12/07/2022 1 [employer] (MEDICARE REPLACEMENT PPO) [id number] Shania Flores Harsha [id number] Shania Mark [facility] Notes Date Note Type Note Provider Name and Address Organization Details Recorded Time 01/31/2020 text/html This is phone visit, due to miranda virus pandemic, she understood and agreed, 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 Marlene Carbajal MD Attn: Accounting,[address] [facility], [place], [address], [facility] 01/31/2020 12:33:33 04/13/2020 text/html This is phone visit, due to miranda virus pandemic,she understood and and agreed, had thyroid nodule , had biopsies, last was in [facility], pending the pathology report. 2. Chronic neck arthritis, she said is C5-C6. 3. Head sing around while bends her head over, NKDA. Marlene Carbajal MD Attn: Accounting, [address] [facility], [place], [address], 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 Marlene Carbajal MD Attn: Accounting, [address] [facility], [place], [address], [facility] - [facility] 02/02/2021 11:30:00 10/05/2022 text/html Office visit, NKDA. history of hypertension BPPV, and mitral valve prolapse. on meclizine, losartan, carvedilol. Marlene Carbajal MD Attn: Accounting, [address] [facility], [place], [address], [place] - [place] 10/05/2022 14:59:56 12/07/2022 text/html Office, acute appointment today. NKDA. She thinks taht she might have reaction to the meclizine. so she stopped. she is also on losartan, carvedilol, and HCTZ from her residential program manager. Marlene Carbajal MD Attn: Accounting,[address] [facility], [place], [address], [facility] 12/07/2022 17:32:44 OBGyn Episode No OBEpisode recorded.
--- OUTSIDE RECORDS SUMMARY | 2024-08-29 12:24 | XMS_ITS | Encounter Summary ---
Author Organization [facility] Address [address] [facility] Attn: Epic Prelude ADT BRIAN FRIED [address] Care Team Providers Care Brick Yard Hand Name Role Phone Chico Gates MD Primary Care Provider Encounter Details Date Type Department Care Team (Late st Contact Info) Description 06/01/1994 Outpatient Historical Conversion, History Social History Tobacco Use Types Packs/Day Years Used Date Smoking Tobacco: Never Assessed Comments Unknown Sex and Gender Information Value Date Recorded Sex Assigned at Not on file Legal Sex Female 5:06 AM CYLINDRICAL MIXER Gender Identity Not on file Sexual Orientation Not on file documented as of this encounter Plan of Treatment Upcoming Encounters Date Type Department Care Team (Late st Contact Info) Description 08/30/2024 8:45 AM CYLINDRICAL MIXER Office Visit [facility] Oncology and Hematology - Dinh [address] [place] [address] [address] [place] [address] Anirudh Adair MD [address] [facility] [address] [place] [address] documented as of this encounter Visit Diagnoses Not on filedocumented in this encounter Care Teams Brick Yard Hand Relationship Specialty Start Date End Date Chico Gates MD [address] [place] [address] PCP - General Family Practice 07/24/23 documented as of this encounter
--- OUTSIDE RECORDS SUMMARY | 2024-08-29 12:24 | XMS_ITS | Continuity of Care Document ---
Author Organization [facility] Address [address] [place] [address] [address] [place] [address] Phone Care Team Providers Care Certified Registered Nurse Practitioner Name Role Phone Marleny Mena Unavailable Unavailable Advance Directives Directive Yes / No Effective Date File Name No Information Encounters Encounter Description Practice Location Reason(s) For Visit Diagnoses Date Provider Providers Copied on Encounter [facility], [address], [place], [place], [id number], [place] tel:[phone] [facility] No Information [address], [place], [address], [place]. tel:[phone] Family History Family Member Type Diagnosis Age At Onset No Information Payers Payer name Insurance type Covered alliance party ID Authoriza tion(s) No Information Social [...]
[2024-08-29 12:49] LABS: Carcinoembryonic Antigen 8.9 ng/mL (0.0-3.0); Thyroid Stimulating Hormone 0.891 uIU/mL (0.465-4.680)
== END 2024-08-29 10:48 | disposition home or self-care (01) ==
LOC: ANHLAB 10:48
PROVIDERS: PCP Family Medicine; Visit Provider Internal Medicine Hematology & Oncology
DX: C18.9 Malignant neoplasm of colon, unspecified (principal); R53.83 Other fatigue
CPT/HCPCS: 36415; 80053; 82378; 82607; 84443; 85025

== ENCOUNTER 2024-09-05 13:26 | Outpatient (CLI) | payer MEDICARE, SELFPAY ==
--- NOTE | ~2024-09-05 | PE_ITS ---
EXAMINATION: PET skull to mid thigh DATE: 09/05/2024 15:36 INDICATION: Malignant neoplasm of colon. TECHNIQUE: Blood glucose level was 85 mg/dL. 10.157 mCi of 18-fluorodeoxyglucose (18-FDG) was adminis tered i.v. Low dose computed tomography (CT) images were acquired from the base of the brain to the p roximal thighs for attenuation correction and anatomic localization. Automated exposure control was e mployed. Dose-length product (DLP) was 905 mGy-cm. Positron emission tomography (PET) images were acq uired in the same distribution. COMPARISON: CT abdomen and pelvis 04/29/2024 FINDINGS: Head/neck: There are no pathologically enlarged lymph nodes. Chest: There is mild atelectasis bilaterally. A calcified right lung nodule is consistent with old gr anulomatous disease. No pleural effusion. The heart size is normal. There are coronary artery calcifi cations. No pericardial effusion. Abdomen/pelvis/proximal thighs: The liver, gallbladder, spleen, pancreas, adrenal glands, and kidneys are normal. There is a right-sided spigelian hernia containing nonobstructed small bowel. There is d iverticulosis of the colon without evidence of diverticulitis. There are changes of right hemicolecto my. There are no pathologically enlarged lymph nodes. There is no free intraperitoneal fluid. There i s a total left hip arthroplasty. IMPRESSION: 1. No evidence of metastatic disease. 2. Right-sided spigelian hernia containing nonobstructed small bowel. Reviewed, dictated and finalized at location B.
[2024-09-05 14:12] LABS: Glucose Point of Care 85 mg/dl (65-105)
--- OUTSIDE RECORDS SUMMARY | 2024-09-05 15:07 | XMS_ITS | Encounter Summary ---
Author Organization [facility] Address [address] [facility] Attn: Epic Prelude ADT BRIAN FRIED [address] Care Team Providers Care Competitive Athlete Name Role Phone Chico Gates MD Primary Care Provider [phone] Encounter Details Date Type Department Care Team (Late st Contact Info) Description 06/01/1994 Outpatient Historical Conversion, History Social History Tobacco Use Types Packs/Day Years Used Date Smoking Tobacco: Never Assessed Comments Unknown Sex and Gender Information Value Date Recorded Sex Assigned at Not on file Legal Sex Female 5:06 AM RELIABILITY TECHNICIANS Gender Identity Not on file Sexual Orientation Not on file documented as of this encounter Plan of Treatment Upcoming Encounters Date Type Department Care Team (Late st Contact Info) Description 09/12/2024 4:00 PM CDT Telephone Check Up [facility] Oncology and Hematology - Dinh [facility] [address] [place] [address] Anirudh Adair MD [address] [place] [address] [employer] [address] [place] [phone] 01/06/2025 11:30 AM CDT Office Visit [facility] Oncology and Hematology - Dinh [address]il [address] [place] [phone] Anirudh Adair MD [address] [place] [address] [employer] [address] [place] [phone] documented as of this encounter Visit Diagnoses Not on filedocumented in this encounter Care Teams Competitive Athlete Relationship Specialty Start Date End Date Chico Gates MD [address] [place] [phone] PCP - General Family Practice 07/24/23 documented as of this encounter
--- OUTSIDE RECORDS SUMMARY | 2024-09-05 15:07 | XMS_ITS | Clinical Summary ---
Author Organization [facility] Katey armendariz Sarahi Address [address] [place] [address] Care Team Providers Care Industrial Maintenance Repairer Helper Name Role Phone Chico Gates MD Primary Care Provider [phone] Allergies Active Allergy Reactions Criticality Noted Date Comments Codeine Other (See Comments) 07/24/2023 other Medications timoloL maleate (TIMOPTIC) 0.25% solution 1 Drop 2 times daily. Active tiZANidine (ZANAFLEX) 2 mg Capsule Take 2 mg by mouth. Active Active Problems No known active problems Encounters Date Type Department Care Team Description 08/30/2024 8:45 AM HEAD BUCKER Office Visit [facility] Oncology and Hematology [facility] [address] [place] [address] Anirudh Adair MD Malignant neoplasm of colon, unspecified part of colon (CMS/HCC) (Primary Dx) 08/30/2024 Orders Only [facility] Oncology [facility] [address] [place] [phone] Anirudh Adair MD 08/14/2024 External Device Data STL ABSTRACTION Provider, [...] on file Legal Sex Female 5:06 AM HEAD BUCKER Gender Identity Not on file Sexual Orientation Not on file Last Filed Vital Signs Vital Sign Reading Time Taken Comments Blood Pressure 116/73 08/30/2024 9:05 AM HEAD BUCKER Pulse 76 08/30/2024 9:05 AM HEAD BUCKER Temperature 35.7 C (96.3 F) 08/30/2024 9:05 AM HEAD BUCKER Respiratory Rate 15 08/30/2024 9:05 AM HEAD BUCKER Oxygen Saturation 97% 08/30/2024 9:05 AM HEAD BUCKER Inhaled Oxygen Concentration - - Weight 64.2 kg (141 lb 9.6 oz) 08/30/2024 9:05 A M HEAD BUCKER Height 156.2 cm (5' 1.5 ) 07/24/2023 9:51 AM HEAD BUCKER Body Mass Index 26.32 07/24/2023 9:51 AM HEAD BUCKER Plan of Treatment Upcoming Encounters Date Type Department Care Team (Late st Contact Info) Description 09/12/2024 4:00 PM CDT Telephone Check Up [facility] Oncology and Hematology Din[facility] [address] [place] [phone] Anirudh Adair MD [facility] [employer] [address] [place] [phone] 01/06/2025 11:30 AM CDT Office Visit [facility] Oncology and Hematology Din[address] [place] [phone] Anirudh Adair MD [facility] [employer] [address] [place] [phone] Health Maintenance Due Date Last Done Comments DTAP/TDAP/TD VACCINES (1 - Tdap) 1959 PNEUMOCOCCAL VACCINE 50+ YEA RS (1 of 1 - PCV) 1990 ZOSTER VACCINE (1 of 2) 1990 OSTEOPOROSIS SCREENING 2005 RSV VACCINE (60+ or ) (1 - 1-dose 75+ series) 2015 INFLUENZA VACCINE (#1) 2024 0, 05/09/2018, 04/01/2015 Medicare Ad[place]age [place]) Prev entative Visit/Annual Wellness Visit 06/26/2024 Procedures Procedure Name Priority Date/Time Associated Diagnosis Comments COMPREHENSIVE METABOLIC PANEL Routine 08/29/2024 8:50 AM HEAD BUCKER from Last 3 Months Results * COMPREHENSIVE METABOLIC PANEL (08/29/2024 8:50 AM HEAD BUCKER) Blood us Anirudh Adair MD CHEMISTRY ORDERABLES Final Resu lt from Last 3 Months Insurance [employer] [facility] Care Teams Industrial Maintenance Repairer Helper Relationship Specialty Start Date End Date Chico Gates MD [address] [place] [address] PCP - General Family Practice 07/24/23
--- OUTSIDE RECORDS SUMMARY | 2024-09-05 15:07 | XMS_ITS | Continuity of Care Document ---
Author Organization [facility] Address [address] [place] [address] [address] [place] [address] Phone Care Team Providers Care Animal Nutrition Consultant Name Role Phone Marleny Mena Unavailable Unavailable Advance Directives Directive Yes / No Effective Date File Name No Information Encounters Encounter Description Practice Location Reason(s) For Visit Diagnoses Date Provider Providers Copied on Encounter [facility], [address], [place], [place], [id number], [place] tel:[phone] [facility] No Information [address] , [address], [place], [address], [place]. tel:[phone] Family History Family Member Type Diagnosis Age At Onset No Information Payers Payer name Insurance type Covered democrat ID Authoriza tion(s) No Information Social History [...]
--- OUTSIDE RECORDS SUMMARY | 2024-09-05 15:07 | XMS_ITS | Data Portability ---
Author Organization ARNALDO HARRYDorota Disla Address [address] [place] [address] Assessment No assessment recorded. Plan of Treatment Reminders Order Date Submit Date Provider Last Modified By Organization Details Last Modified Time Details Appointments None recorded . Lab None recorded . Referral otolaryn gologist referral - Please call patient for appointm ent, thanks! 2022 023 [facility], [address] [facility], [place], [address], 3 05:01:41 Procedures None recorded . Surgeries None recorded . Imaging None recorded . Medication Orders losartan 25 mg tablet 2022 023 [id number], [address] [place] [place], [place], [id number], 3 14:56:52 hydrochl orothiaz aneudy 25 mg tablet 2022 023 [facility] #80997, [address] [place] [place], [place], [id number], 3 14:56:48 meclizin e 12.5 mg tablet 2020 021 [facility] #37827, [address] [place] [place], [place], [id number], 1 11:29:35 meclizin e 12.5 mg tablet [address] [facility] #14773, [address] [place], [place], [id number], 0 10:29:05 calcium 600 mg (as carbonat e)-vitam in D3 10 mcg (400 unit) tablet 2019 020 [facility]05340, [address] [facility], [place], [place], [id number], 1 10:50:41 Patient TargetsNo targets recorded. Patient Instructions Encounter Date Encounter Id Patient Instructions Last Modified By Organization Details Last Modified Time 01/31/2020 [id number] osteoarthritis: care instructions jhsieh Not available 01/31/2020 12:32:11 donovan's palsy: care instructions jhsieh Not available 01/31/2020 12:32:12 04/13/2020 [id number] thyroid nodules: care instructions sieh Not available 04/13/2020 10:29:00 benign paroxysma l positional vertigo (bppv): care instructions sieh Not available 04/13/2020 10:28:59 neck arthritis: exercises jhsieh Not available 04/13/2020 10:28:59 02/02/2021 [id number] benign paroxysma l positional vertigo (bppv): care instructions sieh Not available 02/02/2021 11:29:26 10/05/2022 [id number] heart valve disease: care instructions jhsieh Not available 10/05/2022 14:56:39 mitral valve prolapse: care instructions sieh Not available 10/05/2022 14:56:39 tetanus and diphtheria booster: care instructions sieh Not available 10/05/2022 14:59:47 benign paroxysma l positional vertigo (bppv): care instructions sieh Not available 10/05/2022 14:56:39 learning about high blood pressure jhsieh Not available 10/05/2022 14:56:39 12/07/2022 [id number] benign paroxysma l positional vertigo (bppv): care instructions sieh Not available 12/07/2022 17:32:41 Reason for Referral Software Technical Lead Referral fo r Benign paroxysmal positional vertigo Please call patient for appointment, thanks! Referring Physician: Marlene Carbajal, Internal Medicine, Encounter Date: 12/07/2022 Results Created Date Observation Date Name Description Value Unit Range Abnormal Flag Note LastModifiedBy Organization Detail LastModifiedTime 03/20/20 20 03/20/2020 fine needl e aspir ation , ultra sound guide d, thyro id (PROC ) No observ ation record ed. [facility] [address] [place], [address], 03/20/2020 14:24:01 04/21/20 22 04/21/2022 MRI, ankle , w/o contr ast No observ ation record ed. [email or web address] [facility] On [facility] Orders [address] [place], [address], 04/21/2022 16:04:12 05/27/20 23 05/27/2023 CT, abdom en + pelvi s, w/o contr ast No observ ation record ed. [address], [place], [address], 05/30/2023 16:42:55 06/01/20 23 06/01/2023 CT, head, w/o contr ast No observ ation record ed. [address] [facility], [place], [address], 06/02/2023 18:31:12 Result Notes None recorded. 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 Not Available [facility] 2 08:19:33 Dizziness 685812562 Active Not Available [facility] 2 08:19:33 Chronic osteoarthr itis 36819070 Active Not Available [facility] 2 08:19:33 Chronic low back pain 035547420 Active Not Available [facility] 2 08:19:33 Neck pain 26238835 Active Not Available [facility] 2 08:19:33 Lower abdominal pain 05818928 Active Not Available [facility] 2 08:19:33 Essential hypertensi on 86514124 Active Not Available [facility] 2 08:19:33 Retinal disorder 08804131 Active Not Available [facility] 2 08:19:33 Chronic neck pain 0887738461712 Active Not Available [facility] 2 08:19:33 Pain in right knee Active Not Available [facility] 2 08:19:33 Hip pain 23690108 Active Not Available [facility] 2 08:19:33 Problem Notes None recorded. Procedures Surgical History Date Name Laterality Status Provider Name and Address Organization Details Recorded Time Eye Surgery completed Johanny Sanchez MA [facility] 08/04/2014 16:05:55 Tonsillectomy completed Johanny tariq MA [facility] 08/04/2014 16:05:55 Tubal Ligation completed Johanny prater MA [facility] 08/04/2014 16:05:55 Imaging Results Imaging Date Name Status LastModified by Organiz ation Details LastModified Time 03/20/2020 fine needle aspiration, ultrasound guided, thyroid (PROC) completed [facility] [facility] [address] [place], [address], 03/20/2020 14:24:01 04/21/2022 MRI, ankle, w/o contrast completed [address] Add On Lab Orders [address] [place], [address], 04/21/2022 16:04:12 05/27/2023 CT, abdomen + pelvis, w/o contrast completed [address], [address], 05/30/2023 16:42:55 06/01/2023 CT, head, w/o contrast completed [address], [address], 06/02/2023 18:31:12 Procedure Notes None recorded. Medical [...] Updated DateTime 1 153.67 cm 26.7 kg/m2 24554.3 4 g 98.4 [degF] 94 % 94 % 80 /min 138 mm[Hg] 74 mm[Hg] Michael Pal MA [place] [facility] 1 10:56:46 Date Recorded Body weight Heart rate Oxygen saturation Oxygen saturation in Arterial blood by Pulse oximetry Systolic blood pressure Diastolic blood pressure Provider Name and Address Organization Details Last Updated DateTime 3 44858.0 1 g 97 /min 98 % 98 % 140 mm[Hg] 80 mm[Hg] Digna Gaye ANNA MARIE [facility] 3 12:04:13 Date Recorded Body height Body mass index (BMI) Body weight Oxygen saturation Oxygen saturation in Arterial blood by Pulse oximetry Heart rate Systolic blood pressure Diastolic blood pressure Provider Name and Address Organization Details Last Updated DateTime 3 153.67 cm 26.7 kg/m2 50696.6 2 g 98 % 98 % 83 /min 142 mm[Hg] 80 mm[Hg] Jordynamanda Silverman MA [facility] 3 16:53:28 Social History Question Answer Notes LastModified by Organizat ion Details LastModified Time Tobacco Smoking Status Never Smoker ANNA MARIE Cohen, [facility] 08/04/2014 16:08:24 What Was The Date Of [...] adjuvanted, trivalent, PF 05/09/2018 completed Not Available [facility] 2021 08:19:33 Influenza, high-dose, quadrivalent, PF 05/06/2020 completed Not Available [facility] 2 08:19:33 Influenza, split virus, quadrivalent, PF 04/01/2015 completed Not Available [facility] 0 02:39:16 Past Encounters Encounter ID Performer Location Encounter Start Date Encounter Closed Date Diagnosis/Indication Diagnosis SNOMED-CT Code Diagnosis ICD10 Code Diagnosis Note [id number] MD Carin Sinclair (Adult Med) [address] [place] [address] [id number] 08/04/2014 15:28:35 08/04/2014 18:22:06 Hypertensive disorder 56622700 Hyperlipidemia 25598208 Chronic back pain 101251855 Blind right eye 196938763 Dizziness 865011009 [id number] ANKIT Oseguera (Adult Med) [address] [place] [address] [id number] 0 09/15/2014 15:32:06 09/15/2014 17:48:20 Blind right eye 209528436 Hyperlipidemia 28605862 Hypertensive disorder 31867152 Chronic osteoarthritis 36534190 [id number] ANKIT Oseguera (Adult Med) [address] [place] [address] [id number] 10/14/2014 16:05:58 10/14/2014 17:30:46 Hypertensive disorder 22142399 Chronic low back pain 415228967 Neck pain 27005061 [id number] MD Carin Sinclair (Adult Med) [address] [place] [address] [id number] 03/23/2015 10:34:11 03/23/2015 11:35:34 Hypertensive disorder 71121017 Chronic low back pain 772741968 Lower abdominal pain 06873951 [id number] Carin (Adult Med) [address] [place] [address] [id number] 0 04/01/2015 10:18:00 04/01/2015 14:05:21 Lower abdominal pain 62377690 R10.30 Influenza vaccine needed 9714892580 106 Z28.3 Administra tion of pneumococcal vaccine 41815664 Z23 Essential hypertension 16821740 I10 [id number] MD Carin Sinclair (Adult Med) [address] [place] [address] 77814-798 0 12/04/2015 10:03:57 12/08/2015 09:38:39 Chronic osteoarthritis 52772697 M19.90 Chronic low back pain 27 2832707 M54.5 Essential hypertension 18097546 I10 Hyperlipidemia 93157208 E78.5 Neck pain 91175850 M54.2 Retinal disorder 2793899 9 H35.9 [id number] Eve Olivo is Carin (Adult Med) [address] [place] [address] [id number] 0 01/19/2016 15:02:22 01/19/2016 18:07:41 Chronic osteoarthritis 52357626 M19.90 Hyperlipidemia 36061176 E78.5 Chronic neck pain 022721 2579 107 M54.2 Pain in right knee 30767 86626 14877 M25.561 Hip pain 89877824 M25.55 2 Hypertensive disorder 38 893621 I10 [id number] [facility] [address] [place] [address] [id number] 0 12/26/2017 09:50:25 01/01/2018 14:02:41 Osteoarthritis of hip 907700255 M16.12 medically clear ofr hip surgery. Impacted c erumen of bilateral ears 5064577050 516768 H61.23 ENT referral. [id number] MD Carin Sinclair (Adult Med) [address] [place] [address] [id number] 0 12/29/2017 09:52:29 12/29/2017 14:26:17 Essential hypertension 01765900 I10 Well controlled , low salt diet. Under the care of to cardiologemmanuel guzman Osteoarthr itis of knee 962015699 M17.11 Had cortisone shot before. Degenerati ve joint disease involving multiple joints 306286618 M15.9 Left hip, will call Dr. Dhruv Avila office for this medical clearnce. Chronic low back pain 27 1187571 M54.5 Degenerati ve lumbar disc, was told not a good surgical candidate Impacted cerumen 4645345 6 H61.23 [id number] MD Carin Sinclair (Adult Med) [address] [place] [address] [id number] 0 03/19/2019 16:18:58 03/20/2019 12:15:11 Pre-surgery evaluation 335740473 Z01.818 No contraindi cation of right knee operation. Tino Baltazar office will be contacted for this issue. [id number] MD Carin Sinclair (Adult Med) [address] [place] [address] 83138-329 0 11/22/2019 09:45:42 11/22/2019 16:40:18 Chronic low back pain 396480251 M54.5 Degenerati ve lumbar disc, was told not a good surgical candidate, she agreed to sign on drug contract and drug test. Chronic ne ck pain for greater than 3 months 0824805397 27328 M54.2 Discussed with patient. [id number] MD Carin Sinclair (Adult Med) [address] [place] [address] [id number] 0 11/22/2019 11:19:08 11/25/2019 14:36:15 Chronic neck pain 9328178309 107 M54.2 Chronic low back pain 27 4942347 M54.5 Degenerati ve lumbar disc, was told not a good surgical candidate [id number] [facility] [address] [place] [address] [id number] 0 11/28/2019 08:09:17 11/29/2019 13:20:31 Sensation of foreign body in throat 1615950793 60760 R09.89 She said that she has growth in her throat. 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 [id number] MD Carin Sinclair (Adult Med) [address] [place] [address] 75010-637 0 01/31/2020 08:02:44 02/04/2020 06:44:27 Donovan's palsy 057881897 G51.0 Discussed with patient, she agreed for thr medication as ordered, and will inform this office this week for the prognosis. She said tht she has full recovery 01-31-2020 . Degenerati ve joint disease involving multiple joints 594464499 M15.9 Left hip, will call Dr. Dhruv Avila office for this medical clearnce. [id number] MD Carin Sinclair (Adult Med) [address] [place] [address] [id number] 0 04/13/2020 08:39:51 04/14/2020 11:55:32 Thyroid nodule 371534847 E04.1 Pending biopsy. Cervical arthritis 52552 1000 M46.92 Stable. Benign par oxysmal positional vertigo 682999389 H81.13 Discussed with patient. Willing to try medication . [id number] MD Carin Sinclair (Adult Med) [address] [place] [address] [id number] 0 02/02/2021 10:34:38 02/05/2021 10:15:18 Cataract 475829614 H26.9 Normal PE, ambulating , oriented times 4 , lungs clear to auscultati on, heart regular beat, no murmur, abdomen soft no mass, legs no edema, ROM of neck , shoulders, elbows, hands, hips , knees , feet and lower back are normal. No objection of left eye cataract operation. will contact her ophthalmol ogist office. Benign par oxysmal positional vertigo 266253171 H81.13 Discussed with patient. Willing to try medication . [id number] MD Carin Sinclair (Adult Med) [address] [place] [address] [id number] 0 10/05/2022 11:50:05 10/06/2022 15:06:40 Essential hypertension 44135013 I10 Well controlled , low salt diet. Under the care of her cardiologi st. On carvedilol 6.23mg bid. Benign par oxysmal positional vertigo 352963907 H81.13 Discussed with patient. Willing to try medication . Just refill meclizine 12.5 mg tid prn. Mitral valve prolapse 40 6156530 I34.1 Under the care of her cardiologi st. SARS-CoV-2 antigen vaccine declined 8805579566 Z28.21 She refused today 10-05-22. Administra tion of diphtheria, pertussis, and tetanus vaccine 997635039 Z23 She declined today 10-05-22. [id number] MD Carin Sinclair (Adult Med) [address] [place] [address] 71709-825 0 12/07/2022 16:41:03 12/09/2022 12:42:47 Adverse reaction to drug 40345996 T50.905A She thinks the meclizine migh have cause her taste and lips to be numb, she stopped about 2 weeks ago. But symptoms persists. no difficulty of breathing. no sore throat. , she put hydrogen peroxide in her mouth trying to comfort herself, She agreed to try OTC xylocaine oral lozenges. Benign par oxysmal positional vertigo 576939909 H81.13 Discussed with patient. Willing to try [...] 01/31/2020 2 [place] Shania Flores Harsha [id number] Shania Flores Harsha 01/31/2020 1 [facility] (MEDICARE REPLACEMENT/AD VANTAGE - HMO) [id number] Shania Flores Harsha [id number] Shania Flores Harsha 04/13/2020 2 [place] Shania Flores Harsha [id number] Shania Flores Harsha 04/13/2020 1 [facility] (MEDICARE REPLACEMENT/AD VANTAGE - HMO) [id number] Shania Flores Harsha [id number] Shania Flores Harsha 02/02/2021 1 [facility] (MEDICARE REPLACEMENT/AD VANTAGE - HMO) [id number] Shania Flores Harsha [id number] Shania Flores Harsha 10/05/2022 1 [employer] (MEDICARE REPLACEMENT PPO) [id number] 1 Shaniazheng Rodriguezt [id number] Shania Mark Harsha 12/07/2022 1 [employer] (MEDICARE REPLACEMENT PPO) [id number] 1 Shania Flores Harsha [id number] Shania Mark [facility] Notes Date Note Type Note Provider Name and Address Organization Details Recorded Time 01/31/2020 text/html This is phone visit, due to miranda virus pandemic, she understood and agreed, 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 Marlene Carbajal MD Attn: Accounting,[address] [facility], [place], [address], [facility] 01/31/2020 12:33:33 04/13/2020 text/html This is phone visit, due to miranda virus pandemic,she understood and and agreed, had thyroid nodule , had biopsies, last was in [facility], pending the pathology report. 2. Chronic neck arthritis, she said is C5-C6. 3. Head sing around while bends her head over, NKDA. Marlene Carbajal MD Attn: Accounting, [address] 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 Marlene Carbajal MD Attn: Accounting, [address] [facility], [place], [address], [facility] 02/02/2021 11:30:00 10/05/2022 text/html Office visit, NKDA. history of hypertension BPPV, and mitral valve prolapse. on meclizine, losartan, carvedilol. Marlene Carbajal MD Attn: Accounting, [address] [facility], [place], [address], [place] [facility] 10/05/2022 14:59:56 12/07/2022 text/html Office, acute appointment today. NKDA. She thinks taht she might have reaction to the meclizine. so she stopped. she is also on losartan, carvedilol, and HCTZ from her medical insurance coding specialist. Marlene Carbajal MD Attn: Accounting,[address] [facility], [place], [address], [facility] - [facility] 12/07/2022 17:32:44 OBGyn Episode No OBEpisode recorded.
== END 2024-09-05 13:27 | disposition home or self-care (01) ==
PROVIDERS: PCP Family Medicine; Visit Provider Internal Medicine Hematology & Oncology
DX: K43.9 Ventral hernia without obstruction or gangrene (principal); C17.2 Malignant neoplasm of ileum
CPT/HCPCS: 78815; A9552

== ENCOUNTER 2024-11-25 08:10 | Outpatient (CLI) | payer MEDICARE, SELFPAY ==
--- NOTE | 2024-11-25 08:00 | ECG_ITS ---
Test Date: 2024-11-25 08:34:09 Measurements Intervals [place] Rate: 68 P: 19 AR: 186 QRS: -13 QRSD: 97 T: 29 QT: 372 QTc: 398 Interpretive Statements SINUS RHYTHM LOW QRS VOLTAGE IN PRECORDIAL LEADS CONSIDER INFERIOR INFARCT, AGE INDETERMINATE ABNORMAL ECG No previous ECG available for comparison Electronically Signed On 11-25-2024 08:36:10 CDT by Titi Reynoso D.O.
[2024-11-25 09:05] LABS: Anion Gap 7 mmol/L (4-12); Blood Urea Nitrogen 12 mg/dL (7-17); Calcium 9.8 mg/dL (8.4-10.2); Carbon Dioxide 25 mmol/L (22-30); Chloride 107 mmol/L (98-107); Estimated Glomerular Filt Rate 55; Glucose 120 mg/dL (65-110); Potassium 3.4 mmol/L (3.4-5.0); Sodium 139 mmol/L (137-145)
== END 2024-11-25 08:11 | disposition home or self-care (01) ==
LOC: ANHSURGERY 08:15
PROVIDERS: Anesthesiology; PCP Family Medicine; Visit Provider Surgery
DX: K43.9 Ventral hernia without obstruction or gangrene (principal); I10 Essential (primary) hypertension; Z01.818 Encounter for other preprocedural examination
CPT/HCPCS: 36415; 80048; 86850; 86900; 86901; 93005

== ENCOUNTER 2024-11-26 09:02 | Outpatient (CLI) | payer MEDICARE, SELFPAY ==
--- OUTSIDE RECORDS SUMMARY | 2024-11-26 09:14 | XMS_ITS | Data Portability ---
Author Organization ARNALDO HARRYDorota Disla Address [address] [place] [address] Assessment No assessment recorded. Plan of Treatment Reminders Order Date Submit Date Provider Last Modified By Organization Details Last Modified Time Details Appointments None recorded . Lab None recorded . Referral otolaryn gologist referral - Please call patient for appointm ent, thanks! 2022 023 [facility], [address] [facility], [place], [address], 3 05:01:41 Procedures None recorded . Surgeries None recorded . Imaging None recorded . Medication Orders losartan 25 mg tablet 2022 023 [facility], [address], [place], [id number], 3 14:56:52 hydrochl orothiaz aneudy 25 mg tablet 2022 023 [facility] #53161, [address], [place], [id number], 3 14:56:48 meclizin e 12.5 mg tablet 2020 021 [facility] #62728, [address], [place], [id number], 1 11:29:35 meclizin e 12.5 mg tablet 2019 020 [facility] #92272, [address], [place], [id number], 0 10:29:05 calcium 600 mg (as carbonat e)-vitam in D3 10 mcg (400 unit) tablet 2019 020 [facility], [address], [place], [place], [id number], 1 10:50:41 Patient TargetsNo targets recorded. Patient Instructions Encounter Date Encounter Id Patient Instructions Last Modified By Organization Details Last Modified Time 01/31/2020 [id number] osteoarthritis: care instructions jhsieh Not available 01/31/2020 12:32:11 donovan's palsy: care instructions jhsieh Not available 01/31/2020 12:32:12 04/13/2020 [id number] thyroid nodules: care instructions sieh Not available 04/13/2020 10:29:00 benign paroxysma l positional vertigo (bppv): care instructions sieh Not available 04/13/2020 10:28:59 neck arthritis: exercises jhsieh Not available 04/13/2020 10:28:59 02/02/2021 [id number] benign paroxysma l positional vertigo (bppv): care instructions sieh Not available 02/02/2021 11:29:26 10/05/2022 [id number] heart valve disease: care instructions jhsieh Not available 10/05/2022 14:56:39 mitral valve prolapse: care instructions sieh Not available 10/05/2022 14:56:39 tetanus and diphtheria booster: care instructions sieh Not available 10/05/2022 14:59:47 benign paroxysma l positional vertigo (bppv): care instructions sieh Not available 10/05/2022 14:56:39 learning about high blood pressure jhsieh Not available 10/05/2022 14:56:39 12/07/2022 [id number] benign paroxysma l positional vertigo (bppv): care instructions sieh Not available 12/07/2022 17:32:41 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 Referring Physician: Marlene Carbajal, Internal Medicine, Encounter Date: 12/07/2022 Results Created Date Observation Date Name Description Value Unit Range Abnormal Flag Note LastModifiedBy Organization Detail LastModifiedTime 03/20/20 20 03/20/2020 fine needl e aspir ation , ultra sound guide d, thyro id (PROC ) No observ ation record ed. [facility] (Imaging) [address] [place], [address], 03/20/2020 14:24:01 04/21/20 22 04/21/2022 MRI, ankle , w/o contr ast No observ ation record ed. [email or web address] Add On Lab Orders [address] [place], [address], 04/21/2022 16:04:12 05/27/20 23 05/27/2023 CT, abdom en + pelvi s, w/o contr ast No observ ation record ed. [address], [place], [address], 05/30/2023 16:42:55 06/01/20 23 06/01/2023 CT, head, w/o contr ast No observ ation record ed. [address] [facility], [place], [address], 06/02/2023 18:31:12 Result Notes None recorded. 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 Not Available [facility] 2 08:19:33 Dizziness 324411791 Active Not Available [facility] 2 08:19:33 Chronic osteoarthr itis 61894471 Active Not Available [facility] 2 08:19:33 Chronic low back pain 005673355 Active Not Available [facility] 2 08:19:33 Neck pain 87339856 Active Not Available [facility] 2 08:19:33 Lower abdominal pain 31854475 Active Not Available [facility] 2 08:19:33 Essential hypertensi on 75022700 Active Not Available [facility] 2 08:19:33 Retinal disorder 66589471 Active Not Available [facility] 2 08:19:33 Chronic neck pain 6592733188950 Active Not Available [facility] 2 08:19:33 Pain in right knee Active Not Available [facility] 2 08:19:33 Pain of hip region 14453140 Active Not Available [facility] 2 08:19:33 Problem Notes None recorded. Procedures Surgical History Date Name Laterality Status Provider Name and Address Organization Details Recorded Time Eye Surgery completed Johanny Sanchez MA [facility] 08/04/2014 16:05:55 Tonsillectomy completed Johanny tariq MA [facility] 08/04/2014 16:05:55 Tubal Ligation completed Johanny prater MA [facility] 08/04/2014 16:05:55 Imaging Results None recorded. Procedure Notes None recorded. Medical Equipment None [...] No t Available tizanidine 2 mg tablet 08/10 /2021 completed Not Available Not Available Not Available [...] Available Not Available Vitals Date Recorded Body weight Heart rate Oxygen saturation Oxygen saturation in Arterial blood by Pulse oximetry Systolic blood pressure Diastolic blood pressure Provider Name and Address Organization Details Last Updated DateTime 3 10719.0 1 g 97 /min 98 % 98 % 140 mm[Hg] 80 mm[Hg] Digna Huizar MA [facility] 3 12:04:13 Date Recorded Body height Body mass index (BMI) Body weight Oxygen saturation Oxygen saturation in Arterial blood by Pulse oximetry Heart rate Systolic blood pressure Diastolic blood pressure Provider Name and Address Organization Details Last Updated DateTime 3 153.67 cm 26.7 kg/m2 52729.6 2 g 98 % 98 % 83 /min 142 mm[Hg] 80 mm[Hg] Jordyn Silverman MA [facility] 3 16:53:28 Date Recorded Body height Body mass index (BMI) Body weight Body temperature Oxygen saturation Oxygen saturation in Arterial blood by Pulse oximetry Heart rate Systolic blood pressure Diastolic blood pressure Provider Name and Address Organization Details Last Updated DateTime 1 153.67 cm 26.7 kg/m2 73446.3 4 g 98.4 [degF] 94 % 94 % 80 /min 138 mm[Hg] 74 mm[Hg] Michael Pal MA [facility] 1 10:56:46 Social History Question Answer Notes LastModified by Organizat ion Details LastModified Time Tobacco Smoking Status Never Smoker ANNA MARIE Cohen, [facility] 08/04/2014 16:08:24 What Was The Date [...] available 2014 16:05:55 Medical History Condition Response High Blood Pressure Y Muscle, Joint, or Bone Problems Y High Cholesterol Y Gynecological HistoryNo gynecological history recorded. Obstetrics History GPAL:G 0 P 0 0 0 0 Immunizations Vaccine Type Date Status Note Provider Nam e and Address Organization Details Recorded Time Influenza, adjuvanted, trivalent, PF 05/09/2018 completed Not Available [facility] 2021 08:19:33 Influenza, high-dose, quadrivalent, PF 05/06/2020 completed Not Available [facility] 08:19:33 Influenza, split virus, quadrivalent, PF 04/01/2015 completed Not Available [facility] 0 02:39:16 Past Encounters Encounter ID Performer Location Encounter Start Date Encounter Closed Date Diagnosis/Indication Diagnosis SNOMED-CT Code Diagnosis ICD10 Code Diagnosis Note [id number] [facility] [address] [place] [address] [phone] 08/04/2014 15:28:35 08/04/2014 18:22:06 Hypertensive disorder 94300188 Hyperlipidemia 35872709 Chronic back pain 853491181 Blind right eye 646695146 Dizziness 540750162 [id number] MD Carin Sinclair (Adult Med) [address] [place] [address] [id number] 0 09/15/2014 15:32:06 09/15/2014 17:48:20 Blind right eye 067495389 Hyperlipidemia 55574947 Hypertensive disorder 09365159 Chronic osteoarthritis 71448735 [id number] MD Carin Sinclair (Adult Med) [address] [place] [address] [phone] 10/14/2014 16:05:58 10/14/2014 17:30:46 Hypertensive disorder 28640861 Chronic low back pain 694406339 Neck pain 26033012 [id number] MD Carin Sinclair (Adult Med) [address] [place] [address] [id number] 0 03/23/2015 10:34:11 03/23/2015 11:35:34 Hypertensive disorder 98062042 Chronic low back pain 220811240 Lower abdominal pain 63213811 [id number] MD Carin Sinclair (Adult Med) [address] [place] [address] [id number] 04/01/2015 10:18:00 04/01/2015 14:05:21 Lower abdominal pain 53468304 R10.30 Influenza vaccine needed 1179219365 106 Z28.3 Administra tion of pneumococcal vaccine 07809746 Z23 Essential hypertension 37835948 I10 [id number] MD Carin Sinclair (Adult Med) [address] [place] [address] [id number] [id number] 12/04/2015 10:03:57 12/08/2015 09:38:39 Chronic osteoarthritis 84738113 M19.90 Chronic low back pain 27 7465064 M54.5 Essential hypertension 13375160 I10 Hyperlipidemia 90162992 E78.5 Neck pain 66151969 M54.2 Retinal disorder 8571967 9 H35.9 [id number] MD Carin Sinclair (Adult Med) [address] [place] [address] [id number] 01/19/2016 15:02:22 01/19/2016 18:07:41 Chronic osteoarthritis 85288313 M19.90 Hyperlipidemia 65894220 E78.5 Chronic neck pain 306408 7764 107 M54.2 Pain in right knee 85292 09659 83960 M25.561 Pain of hip region 15349 002 M25.552 Hypertensive disorder 38 973562 I10 [id number] MD Carin Sinclair (Adult Med) [address] [place] [address] [id number] 0 12/26/2017 09:50:25 01/01/2018 14:02:41 Osteoarthritis of hip 612738407 M16.12 medically clear ofr hip surgery. Impacted c erumen of bilateral ears 3389154765 766646 H61.23 ENT referral. [id number] MD Carin Sinclair (Adult Med) [address] [place] [address] [id number] 12/29/2017 09:52:29 12/29/2017 14:26:17 Essential hypertension 77927758 I10 Well controlled , low salt diet. Under the care of r cardiologi Osteoarthr itis of knee 866011809 M17.11 Had cortisone shot before. Generalize d osteoarthritis 671111945 M15.9 Left hip, will call Dr. Dhruv Avila office for this medical clearnce. Chronic low back pain 27 0584922 M54.5 Degenerati ve lumbar disc, was told not a good surgical candidate Impacted cerumen 5702760 6 H61.23 [id number] MD Carin Sinclair (Adult Med) [address] [place] [address] [id number] 03/19/2019 16:18:58 03/20/2019 12:15:11 Pre-surgery evaluation 279697899 Z01.818 No contraindi cation of right knee operation. Tino Baltazar office will be contacted for this issue. [id number] MD Carin Sinclair (Adult Med) [address] [place] [address] [phone] 11/22/2019 09:45:42 11/22/2019 16:40:18 Chronic low back pain 047584667 M54.5 Degenerati ve lumbar disc, was told not a good surgical candidate, she agreed to sign on drug contract and drug test. Chronic ne ck pain for greater than 3 months 1289156306 66440 M54.2 Discussed with patient. [id number] MD Carin Sinclair (Adult Med) [address] [place] [address] [phone] 11/22/2019 11:19:08 11/25/2019 14:36:15 Chronic neck pain 8342957236 107 M54.2 Chronic low back pain 27 9638188 M54.5 Degenerati ve lumbar disc, was told not a good surgical candidate [id number] MD Carin Sinclair (Adult Med) [address] [place] [address] [phone] 0 11/28/2019 08:09:17 11/29/2019 13:20:31 Sensation of foreign body in throat 2041983243 40792 R09.89 She said that she has growth in her throat. 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 [id number] MD Carin Sinclair (Adult Med) [address] [place] [address] [phone] 01/31/2020 08:02:44 02/04/2020 06:44:27 Donovan's palsy 749396785 G51.0 Discussed with patient, she agreed for thr medication as ordered, and will inform this office this week for the prognosis. She said tht she has full recovery 01-31-2020 . Generalize d osteoarthritis 709146925 M15.9 Left hip, will call Dr. Dhruv Avila office for this medical clearnce. [id number] [facility] [address] [place] [address] [phone] 04/13/2020 08:39:51 04/14/2020 11:55:32 Thyroid nodule 877631724 E04.1 Pending biopsy. Cervical arthritis 13949 1000 M46.92 Stable. Benign par oxysmal positional vertigo 305805197 H81.13 Discussed with patient. Willing to try medication . [id number] MD Carin Sinclair (Adult Med) [address] [place] [address] [id number] 02/02/2021 10:34:38 02/05/2021 10:15:18 Cataract 519370324 H26.9 Normal PE, ambulating , oriented times 4 , lungs clear to auscultati on, heart regular beat, no murmur, abdomen soft no mass, legs no edema, ROM of neck , shoulders, elbows, hands, hips , knees , feet and lower back are normal. No objection of left eye cataract operation. will contact her ophthalmol ogist office. Benign par oxysmal positional vertigo 365547370 H81.13 Discussed with patient. Willing to try medication . [id number] [facility] [address] [place] [address] [id number] 10/05/2022 11:50:05 10/06/2022 15:06:40 Essential hypertension 54477123 I10 Well controlled , low salt diet. Under the care of her cardiologi st. On carvedilol 6.23mg bid. Benign par oxysmal positional vertigo 534839219 H81.13 Discussed with patient. Willing to try medication . Just refill meclizine 12.5 mg tid prn. Mitral valve prolapse 40 9884080 I34.1 Under the care of her cardiologi st. SARS-CoV-2 antigen vaccine declined 8238448936 Z28.21 She refused today 10-05-22. Administra tion of diphtheria, pertussis, and tetanus vaccine 314719601 Z23 She declined today 10-05-22. [id number] Marlene Carbajal MD [facility] (Adult Med) [address] [place] [address] [id number] 0 12/07/2022 16:41:03 12/09/2022 12:42:47 Adverse reaction to drug 09575991 T50.905A She thinks the meclizine migh have cause her taste and lips to be numb, she stopped about 2 weeks ago. But symptoms persists. no difficulty of breathing. no sore throat. , she put hydrogen peroxide in her mouth trying to comfort herself, She agreed to try OTC xylocaine oral lozenges. Benign par oxysmal positional vertigo 173904810 H81.13 Discussed with patient. Willing to try medication . Just refill meclizine 12.5 mg tid prn. Meclizine has been stopped. She agreed for the ENT referral for her vertigo or dizziness. Health Concerns Section Related Observation LastModified by Organization Erwin vaughn LastModified Time None Recorded Concern Status LastModified by Organization Details LastModified Time None Recorded Advance Directives Directive None Recorded Payers Encounter Date Sequence Insurance Name Policy Number Policy Pereyra Covered Member ID Pereyra Member ID Guarantor Name 01/31/2020 2 [place] Shania Mcleod [id number] Shania Flores Harsha 01/31/2020 1 [facility] (MEDICARE REPLACEMENT/A DVANTAGE - HMO) [id number] Shania Stevensonrett [id number] Shania Stevensonrett 04/13/2020 2 [place] Shania Stevensonrett [id number] Shania Stevensonrett 04/13/2020 1 [facility] (MEDICARE REPLACEMENT/A DVANTAGE - HMO) [id number] Shania Flores Harsha [id number] Shania Stevensonrett 02/02/2021 1 [facility] (MEDICARE REPLACEMENT/A DVANTAGE - HMO) [id number] Shania Flores Harsha [id number] Shania Stevensonrett 10/05/2022 1 [employer] (MEDICARE REPLACEMENT/A DVANTAGE - PPO) [id number] Shania Stevensonrett [id number] Shania Stevensonrett 12/07/2022 1 [employer] (MEDICARE REPLACEMENT/A DVANTAGE - PPO) [id number] Shania Stevensonrett [id number] Shania Stevensonrett Notes Date Note Type Note Provider Name and Address Organization Details Recorded Time 01/31/2020 text/html This is phone visit, due to miranda virus pandemic, she understood and agreed, 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 Marlene Carbajal MD Attn: [address]ing[address] [place], [address], [facility] 01/31/2020 12:33:33 04/13/2020 text/html This is phone visit, due to miranda virus pandemic,she understood and and agreed, had thyroid nodule , had biopsies, last was in [facility], pending the pathology report. 2. Chronic neck arthritis, she said is C5-C6. 3. Head sing around while bends her head over, NKDA. 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 Marlene Carbajal MD Attn: Accounting,[address], [place], [address], [facility] 02/02/2021 11:30:00 10/05/2022 text/html Office visit, NKDA. history of hypertension BPPV, and mitral valve prolapse. on meclizine, losartan, carvedilol. Marlene Carbajal MD Attn: Accounting,[address] [facility], [place], [address], [facility] 10/05/2022 14:59:56 12/07/2022 text/html Office, acute appointment today. NKDA. She thinks taht she might have reaction to the meclizine. so she stopped. 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 Marlene Carbajal MD Attn: Accounting,[address] [facility], [place], [address], [facility] 12/07/2022 17:32:44 OBGyn Episode No OBEpisode recorded.
--- OUTSIDE RECORDS SUMMARY | 2024-11-26 09:14 | XMS_ITS | Continuity of Care Document ---
Author Organization [facility] Address [address] [place] [address] [address] [place] [address] Phone Care Team Providers Care Hosted Services Analyst Name Role Phone Marleny Mena Unavailable Unavailable Advance Directives Directive Yes / No Effective Date File Name No Information Encounters Encounter Description Practice Location Reason(s) For Visit Diagnoses Date Provider Providers Copied on Encounter [facility], [address], [place], [place], [address], [place] tel:[phone] [facility] No Information [address] , [address], [place], [address], [place]. tel:[phone] Family History Family Member Type Diagnosis Age [...]
--- OUTSIDE RECORDS SUMMARY | 2024-11-26 09:14 | XMS_ITS | Encounter Summary ---
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 Gender Identity Not on file Sexual Orientation Not on file documented as of this encounter Plan of Treatment Upcoming Encounters Date Type Department Care Team (Late st Contact Info) Description 12/09/2024 11:15 AM CDT Office Visit [facility] [address] [place] [address] [address] [place] [address] [place] [address] [place] [address] [address] [place] [address] documented as of this encounter Visit Diagnoses Not on filedocumented in this encounter Care Teams Repairer Veneer Sheet Relationship Specialty Start Date End Date Chico Gates MD [address] [place] [address] PCP - General Family Practice 07/24/23 documented as of this encounter
--- OUTSIDE RECORDS SUMMARY | 2024-11-26 09:14 | XMS_ITS | Clinical Summary ---
Author Organization [facility] Katey armendariz [place]smith Address [address] [place] [address] Care Team Providers Care Conduit Reamer Operator Name Role Phone Chico Gates MD Primary Care Provider [phone] Allergies Active Allergy Reactions Criticality Noted Date Comments Codeine Other (See Comments) 07/24/2023 other Medications timoloL maleate (TIMOPTIC) 0.25% solution 1 Drop 2 times daily. Active tiZANidine (ZANAFLEX) 2 mg Capsule Take 2 mg by mouth. Active Active Problems No known active problems Encounters Date Type Department Care Team Description 11/19/2024 External Device Data STL ABSTRACTION Provider, Abstract 11/13/2024 External Device Data STL ABSTRACTION Provider, Abstract 11/12/2024 External Device Data STL ABSTRACTION Provider, Abstract 09/24/2024 Abstract [facility] Oncology and Hematology [place] [address] [address] [place] [phone] Anirudh Adair MD 09/13/2024 2:15 PM CDT Telephone Check Up [facility] Oncology and Hematology - [place] [address] [place] [phone] Anirudh Adair MD Intra-abdominal hernia (Primary Dx) 09/06/2024 Orders Only [facility] Oncology and Hematology [facility] [address] [place] [phone] Anirudh Adair MD 08/30/2024 8:45 AM CORRECTIVE AND MANUAL ARTS THERAPIST Office Visit [facility] Oncology and Hematology - [place] [address] [place] [address] Anirudh Adair MD Malignant neoplasm of colon, unspecified part of colon (CMS/HCC) (Primary Dx) 08/30/2024 Orders Only [facility] Oncology and Hematology [place] [address] [facility] [address] [place] [address] Anirudh Adair MD from Last 3 Months Family History Medical [...] on file Legal Sex Female 5:06 AM CORRECTIVE AND MANUAL ARTS THERAPIST Gender Identity Not on file Sexual Orientation Not on file Last Filed Vital Signs Vital Sign Reading Time Taken Comments Blood Pressure 116/73 08/30/2024 9:05 AM CORRECTIVE AND MANUAL ARTS THERAPIST Pulse 76 08/30/2024 9:05 AM CORRECTIVE AND MANUAL ARTS THERAPIST Temperature 35.7 C (96.3 F) 08/30/2024 9:05 AM CORRECTIVE AND MANUAL ARTS THERAPIST Respiratory Rate 15 08/30/2024 9:05 AM CORRECTIVE AND MANUAL ARTS THERAPIST Oxygen Saturation 97% 08/30/2024 9:05 AM CORRECTIVE AND MANUAL ARTS THERAPIST Inhaled Oxygen Concentration - - Weight 64.2 kg (141 lb 9.6 oz) 08/30/2024 9:05 A M CORRECTIVE AND MANUAL ARTS THERAPIST Height 156.2 cm (5' 1.5) 07/24/2023 9:51 AM CORRECTIVE AND MANUAL ARTS THERAPIST Body Mass Index 26.32 07/24/2023 9:51 AM CORRECTIVE AND MANUAL ARTS THERAPIST Plan of Treatment Upcoming Encounters Date Type Department Care Team (Late st Contact Info) Description 12/09/2024 11:15 AM CDT Office Visit [facility] Oncology and Hematology [address] [place] [address] Anirudh Adair MD [address] [facility] [address] [place] [address] Health Maintenance Due Date Last Done Comments DTAP/TDAP/TD VACCINES (1 - Tdap) 1959 PNEUMOCOCCAL VACCINE 50+ YEA RS (1 of 1 - PCV) 1990 ZOSTER VACCINE (1 of 2) 1990 OSTEOPOROSIS SCREENING 2005 RSV VACCINE (60+ or ) (1 - 1-dose 75+ series) 2015 INFLUENZA VACCINE (#1) 2024 0, 05/09/2018, 04/01/2015 Procedures Procedure Name Priority Date/Time Associated Diagnosis Comments PET BONE IMG W CT SKL BSE MID THG Routine 09/05/2024 1:04 PM CDT COMPREHENSIVE METABOLIC PANEL Routine 08/29/2024 8:50 AM CORRECTIVE AND MANUAL ARTS THERAPIST from Last 3 Months Results * PET BONE IMG W CT SKB MDTH (09/05/2024 1:04 PM CDT) Anatomical Region Laterality Modality Positron Emissio n Tomography (PET) Anirudh Adair MD PE ORDERABLES Final Result * COMPREHENSIVE METABOLIC PANEL (08/29/2024 8:50 AM CORRECTIVE AND MANUAL ARTS THERAPIST) Blood Anirudh Adair MD CHEMISTRY ORDERABLES Final Resu lt from Last 3 Months Insurance [facility] Care Teams Conduit Reamer Operator Relationship Specialty Start Date End Date Chico Gates MD [address] [place] [address] PCP - General Family Practice 07/24/23
--- OUTSIDE RECORDS SUMMARY | 2024-11-26 09:14 | XMS_ITS | Referral Summary ---
Author Organization [facility] Address [address] [place] [address] Care Team Providers Care Backer Up Name Role Phone Marlene Carbajal MD Primary Care Provider [phone] Encounters Date Type Department Care Team Description 11/22/2024 Telephone [facility] Ophthalmology [address] [place] [phone] Brittany Meraz MD 09/23/2024 10:15 AM CDT Office Visit [facility] Ophthalmology [address] [place] [phone] Ko Gimenez, OD Vitreous syneresis of left eye (Primary Dx); Aphakia, right eye; Foreign body sensation, left eye 09/09/2024 Telephone [facility] Ophthalmology [address] [place] [phone] Wendy Ford MD 09/09/2024 Ophth Exam [facility] Ophthalmology [address] [place] [phone] Wendy Ford MD 09/09/2024 3:37 PM CDT - 09/09/2024 6:24 PM CDT Emergency [facility] Emergency Department [address] [place] [address] Jero Reagan MD Changes in vision (Primary Dx) Discharge Disposition: Discharge to home or self care from Last 3 Months Allergies Active Allergy Reactions Criticality Noted Date Comments Codeine Other (See comments) 07/24/2023 other Medications amLODIPine (NORVASC) 5 mg tablet 2 tablets daily Active tiZANidine (ZANAFLEX) 2 mg tablet TK 1 T PO QD 0 02/16/2019 Active timolol (TIMOPTIC-XE) 0.25 % ophthalmic gel-forming timolol maleate 0.25 % eye gel forming solution Active hydroCHLOROthia zide (HYDRODIURIL) 25 mg tablet Take 1 tablet(s) every day by oral route as directed for 90 days. Active losartan (COZAAR) 25 mg tablet Take 1 tablet (25 mg total) by mouth daily Active carvediloL (COREG) 6.25 mg tablet TAKE 1 TABLET BY MOUTH EVERY 12 HOURS WITH MEAL AND FOOD Active Active Problems Problem Noted Date Diagnosed Date Vitreous syneresis of left eye 09/23/2024 Assessment & Plan (09/23/2024 11:42 AM CDT): No holes, tears, or detachments on repeat dilated eye exam today. Return in 2 months for repeat DFE or sooner prn. Patient is aware of strict return precautions. Aphakia, right eye 09/23/2024 Assessment & Plan (09/23/2024 11:44 AM CDT): Previously had aphakic CL but d/c'ed 2/2 dryness. Patient reports that she had her full prescription made into glasses with which she reports having some vision OD. Discussed concerns of aneisokonia with large amounts of anisometropia. Foreign body sensation, left eye 09/23/2024 Assessment & Plan (09/23/2024 11:45 AM CDT): Patient notices FBS OS. No FB identified on exam, no signs of IOL displacement or chafing, no AC cell. Gave AT samples. 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 Gender Identity Not on file Sexual Orientation Not on file Last Filed Vital Signs Vital Sign Reading Time Taken Comments Blood Pressure 170/88 09/09/2024 3:22 PM CDT Pulse 84 09/09/2024 3:22 PM CDT Temperature 36.6 C (97.9 F) 09/09/2024 11:25 AM CDT Respiratory Rate 16 09/09/2024 3:22 PM CDT Oxygen Saturation 98% 09/09/2024 3:22 PM CDT Inhaled Oxygen Concentration - - Weight 64 kg (141 lb) 09/09/2024 11:25 AM CDT Height 158.8 cm (5' 2.5) 03/31/2014 9:42 AM CDT Body Mass Index - - Plan of Treatment Not on file Procedures Procedure Name Priority Date/Time Associated Diagnosis Comments POCUS OCULAR 09/09/2024 3:59 PM CDT from Last 3 Months Results * POCUS Ocular (09/09/2024 3:59 PM CDT) Anatomical Region Laterality Modality Other 09/09/2024 3:45 PM CDT Narrative 09/09/2024 4:13 PM CDT Performed by: Jero Reagan Ocular : Exam Information: Exam type: Diagnostic Indication(s) for Exam: Vision change Findings: L Lens: Normally located L Vitreous body: Anechoic L Retinal contour: Indeterminate Interpretation: No acute abnormalities identified Confirmatory study: Consult Electronically signed by Jero Reagan on Monday, September 09, 2024 at 4:13 PM I have reviewed the images & the resident's interpretation. I agree with the findings. Procedure Note Jero Reagan MD - 09/09/2024 Performed by: Jero Reagan Ocular : Exam Information: Exam type: Diagnostic Indication(s) for Exam: Vision change Findings: L Lens: Normally located L Vitreous body: Anechoic L Retinal contour: Indeterminate Interpretation: No acute abnormalities identified Confirmatory study: Consult Electronically signed by Jero Reagan on Monday, September 09, 2024 at 4:13PM I have reviewed the images & the resident's interpretation. I agree withthe findings. us Jero Reagan MD POCUS ORDERABLES Final Result from Last 3 Months Insurance MEDICARE AETNA MEDICARE Care Teams Backer Up Relationship Specialty Start Date End Date Marlene Carbajal MD [address] [place] [id number] PCP - General Internal Medicine 01/29/19
--- OUTSIDE RECORDS SUMMARY | 2024-11-26 09:14 | XMS_ITS | Clinical Summary ---
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 Encounters Date Type Department Care Team Description 11/22/2024 Telephone [facility] Ophthalmology [address] [place] [phone] Brittany Meraz MD 09/23/2024 10:15 AM CDT Office Visit [facility] Ophthalmology [address] [place] [phone] Ko Gimenez, OD Vitreous syneresis of left eye (Primary Dx); Aphakia, right eye; Foreign body sensation, left eye 09/09/2024 3:37 PM CDT - 09/09/2024 6:24 PM CDT Emergency [facility] Emergency Department [address] [place] [address] Jero Reagan MD Changes in vision (Primary Dx) Discharge Disposition: Discharge to home or self care 09/09/2024 Telephone [facility] Ophthalmology [address] [place] [phone] Wendy Ford MD 09/09/2024 Ophth Exam [facility] Ophthalmology [address] [place] [phone] Wendy Ford MD from Last 3 Months Surgical History Surgery Date Site/Laterality Comments HI LIG/TRNSXJ FLP TUBE ABDL/VAG APPR UNI/BI Tubal Ligation - (Added by TW Conv) EYE SURGERY Eye Surgery - (Added by TW Conv) HI TONSILLECTOMY PRIMARY/SECONDARY <AGE 12 Tonsillectomy - (Added by TW Conv) HI RHINP PRIM LAT&ALAR CRTLGS&/ELVTN NASAL TI Rhinoplasty - (Added by TW Conv) HIP SURGERY CATARACT EXTRACTION 06/26/2022 - 06/25/2023 Left RETINAL DETACHMENT SURGERY Bilateral Medical History Medical History Date Comments Personal history of other di seases of the circulatory system History of hypertension - (A dded by [place] Conv) Personal history of other di seases of the circulatory system History of cardiac disorder - (Added by TW Conv) Hypertension Family History Medical History Relation Name Comments Cancer Brother 1 Hypertension Brother 1 Retinal detachment Brother 1 Cancer Brother 2 Hypertension Brother 2 Cancer Brother 3 Hypertension Brother 3 Cancer Brother 4 Hypertension Brother 4 No Known Problems Father No Known Problems Mother Diabetes Other Diabetes Mellit - (Added by TW Conv) Cancer Sister 1 Hypertension Sister 1 Retinal detachment Sister 1 Cancer Sister 2 Hypertension Sister 2 Hypertension Sister 3 Hypertension Sister 4 Relation Name Status Comments Brother 1 Brother 2 Alive Brother 3 Alive Brother 4 Alive Father Mother Other Sister 1 Sister 2 Alive Sister 3 Alive Sister 4 Alive Social History Tobacco Use Types Packs/Day Years [...] on file 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 Gender Identity Not on file Sexual Orientation Not on file Obstetrics History Last Filed Vital Signs Vital Sign Reading [...] Mass Index - - Plan of Treatment Health Maintenance Due Date Last Done Comments Depression Screening 1940 Fall Risk Assessment 1940 Osteoporosis Screening-Bone Density Scan 1940 DTaP/Tdap/Td Vaccine (1 - Tdap) 1951 Hepatitis B Screening 1958 Pneumococcal vaccine 65+ (1 of 1 - PCV) 1990 Zoster Vaccine (1 of 2) 1990 Well Visit 65+ 2005 Influenza Vaccine (Season Ended) 2025 05/09/20 18, 04/01/2015 Procedures Procedure Name Priority Date/Time Associated [...] Final Result from Last 3 Months Insurance T MEDICARE AET MEDICARE Care Teams Combination Window Installer Relationship Specialty Start Date End Date Marlene Carbajal MD [address] [place] [phone] PCP - General Internal Medicine 01/29/19
[2024-11-26 11:25] LABS: Anion Gap 7 mmol/L (4-12); Blood Urea Nitrogen 11 mg/dL (7-17); Calcium 9.5 mg/dL (8.4-10.2); Carbon Dioxide 28 mmol/L (22-30); Chloride 106 mmol/L (98-107); Estimated Glomerular Filt Rate > 60; Glucose 99 mg/dL (65-110); Magnesium 1.9 mg/dL (1.6-2.3); Potassium 3.7 mmol/L (3.4-5.0); Sodium 141 mmol/L (137-145)
[2024-11-26 13:56] LABS: Iron 74 ug/dL (37-170)
[2024-11-26 14:05] LABS: Percent Iron Saturation 23 % (20-50)
[2024-11-27 15:43] LABS: Red Blood Cell Folate 394 ng/mL RBC (>280)
[2024-11-28 15:13] LABS: CMV DNA Quant PCR IU/mL Not Detected (Not Detected); Cytomegalovirus DNA Quant PCR Not Detected Log IU/mL (Not Detected)
== END 2024-11-26 09:03 | disposition home or self-care (01) ==
PROVIDERS: PCP Family Medicine; Visit Provider Internal Medicine Cardiovascular Disease
DX: I10 Essential (primary) hypertension (principal); D72.821 Monocytosis (symptomatic); D50.0 Iron deficiency anemia secondary to blood loss (chronic); E53.8 Deficiency of other specified B group vitamins; D64.9 Anemia, unspecified
CPT/HCPCS: 36415; 80048; 82728; 82747; 83540; 83550; 83735; 87497

== ENCOUNTER 2024-12-05 03:45 | Day surgery (SDC) | payer MEDICARE, SELFPAY ==
--- NOTE | 2024-11-20 10:05 | PC.NURSE ---
Report to the Outpatient Waiting Room, entrance under the green pavilion located off [facility], at time __10AM on date ___12/05/24____. Planned Procedure Time: __1200 NOON .? Time changes happen often and if your time is changed the preop area will call you the afternoon before. - You and your visitor will be asked to self-screen and do not enter if you have any COVID symptoms. Please call surgeon if you need to reschedule. - A mask is optional within the hospital at this time. Patients may have clear liquids (water, carbonated beverages, clear teas, apple juice) until 3 hours prior to surgery ( 9 AM ) with a maximum of 20 ounces. - No food from midnight until time of surgery and no smoking, or chewing tobacco (or any form of nicotine). No chewing gum, candy or mints. - Take only the following medications with a SIP of water on the morning of surgery: __CARVEDILOL,TIMOLOL EYE DROP DO NOT STOP ANY OF YOUR OTHER PRESCRIPTION MEDICATIONS PRIOR TO SURGERY EXCEPT THE FOLLOWING Hold all vitamins and supplements for 3 days per anesthesiologist.LAST DOSE 12/01/24 Medications to discontinue per physician NONE Please no make-up, nail spanish, hairspray, perfume, deodorant, or body powder the day of surgery.? No jewelry (including any body piercings) or valuables the day of surgery, leave them at home.? Please take a shower or bath the night before, or the morning of, surgery with an antibacterial soap.? Wear comfortable, loose fitting clothing.? Children are encouraged to wear pajamas. - Jewelry must be removed prior to entering the operating room.? Rings and piercings that are not removed may be cut off. - The hospital will not accept responsibility for valuables.? - Please leave all valuables, including medications, at home the day of surgery. If you are going home after surgery, a licensed boom truck driver must drive you home.? - NO public transportation without another adult if you receive anesthesia. - We recommend that an adult stay with you for 24 hours following discharge. - We also recommend that you do not drive, make important decision, drink alcoholic beverages, or take any drugs that were not prescribed by your health care provider for at least 24 hours after your discharge time. For Pediatric surgeries, we recommend two adults accompany the child home. Follow any additional instructions given to you from your surgeon. Telephone instructions given to __PATIENT and asked if any additional questions and then verbalized understanding. Patient advised to call surgeon office or pre surgery nurse liaison [phone] if any additional questions.
[2024-11-20 10:38] VITALS: BMI 25.8
[2024-12-05] VITALS (17 sets, daily range): BP systolic 125–182; BP diastolic 73–102; PULSE 72–91; RESP 11–18; TEMP 36.2–36.7; O2SAT 94–100; BMI 26.6
--- OUTSIDE RECORDS SUMMARY | 2024-12-05 03:48 | XMS_ITS | Clinical Summary ---
Author Organization [facility] Katey armendariz [facility] Address [address] [place] [address] Care Team Providers Care Public Works Manager Name Role Phone Chico Gates MD Primary Care Provider [phone] Allergies Active Allergy Reactions Criticality Noted Date [...] Data STL ABSTRACTION Provider, Abstract 09/24/2024 Abstract [facility] Oncology formerly [facility] Hematology [place] [address] [address] [place] [address] Anirudh Adair MD 09/13/2024 2:15 PM CDT Telephone Check Up [facility] Oncology and Hematology [facility] [address] [place] [address] Anirudh Adair MD Intra-abdominal hernia (Primary Dx) 09/06/2024 Orders Only [facility] Oncology formerly [facility] Hematology [facility] [address] [place] [address] Anirudh Adair MD from Last [...] on file Legal Sex Female 5:06 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 Gender Identity Not on file Sexual Orientation Not on file Last Filed Vital Signs Vital Sign Reading Time Taken Comments Blood Pressure 116/73 08/30/2024 9:05 AM LEAD INSTALLER Pulse 76 08/30/2024 9:05 AM LEAD INSTALLER Temperature 35.7 C (96.3 F) 08/30/2024 9:05 AM LEAD INSTALLER Respiratory Rate 15 08/30/2024 9:05 AM LEAD INSTALLER Oxygen Saturation 97% 08/30/2024 9:05 AM LEAD INSTALLER Inhaled Oxygen Concentration - - Weight 64.2 kg (141 lb 9.6 oz) 08/30/2024 9:05 A M LEAD INSTALLER Height 156.2 cm (5' 1.5) 07/24/2023 9:51 AM LEAD INSTALLER Body Mass Index 26.32 07/24/2023 9:51 AM LEAD INSTALLER Plan of Treatment Upcoming Encounters Date Type Department Care Team (Late st Contact Info) Description 12/09/2024 11:15 AM CDT Office Visit [facility] Oncology and Hematology - [place] [address] [place] [address] [facility] [address] [place] [address] Anirudh Adair MD [address] [facility] [address] [place] [address] Health Maintenance Due Date Last Done Comments DTAP/TDAP/TD VACCINES (1 - Tdap) 1959 PNEUMOCOCCAL VACCINE 50+ YEA RS (1 of 1 - PCV) 1990 ZOSTER VACCINE (1 of 2) 1990 OSTEOPOROSIS SCREENING 2005 RSV VACCINE (60+ or ) (1 - 1-dose 75+ series) 2015 INFLUENZA VACCINE (#1) 2024 0, 05/09/2018, 04/01/2015 [place] Prev entative Visit/Annual Wellness Visit 06/26/2024 Procedures Procedure Name Priority Date/Time Associated Diagnosis Comments PET BONE IMG W CT SKL BSE MID THG Routine 09/05/2024 1:04 PM CDT from Last 3 Months Results * PET BONE IMG W CT SKB MDTH (09/05/2024 1:04 PM CDT) Anatomical Region Laterality Modality Positron Emissio n Tomography (PET) Anirudh Adair MD PE ORDERABLES Final Result from Last 3 Months Insurance AETNA O MCR Care Teams Public Works Manager Relationship Specialty Start Date End Date Chico Gates MD [address] [place] [phone] PCP - General Family Practice 07/24/23
--- OUTSIDE RECORDS SUMMARY | 2024-12-05 03:49 | XMS_ITS | Data Portability ---
Author Organization ARNALDO HARRYDorota Disla Address [address] [place] [address] Assessment No assessment recorded. Plan of Treatment Reminders Order Date Submit Date Provider Last Modified By Organization Details Last Modified Time Details Appointments None recorded . Lab None recorded . Referral otolaryn gologist referral - Please call patient for appointm ent, thanks! 2022 023 [facility], [address] [address], [place], [address], 3 05:01:41 Procedures None recorded . Surgeries None recorded . Imaging None recorded . Medication Orders losartan 25 mg tablet 2022 023 [facility], [address], [place], [id number], 3 14:56:52 hydrochl orothiaz aneudy 25 mg tablet 2022 023 [facility] #48461, [address], [place], [id number], 3 14:56:48 meclizin e 12.5 mg tablet 2020 021 [facility] #07555, [address], [place], [id number], 1 11:29:35 meclizin e 12.5 mg tablet 2019 020 [facility] #60949, [address], [place], [id number], 0 10:29:05 calcium 600 mg (as carbonat e)-vitam in D3 10 mcg (400 unit) tablet 2019 020 [facility]59495, [address] [facility], [place], [place], [id number], 1 10:50:41 Patient TargetsNo targets recorded. Patient Instructions Encounter Date Encounter Id Patient Instructions Last Modified By Organization Details Last Modified Time 01/31/2020 [id number] osteoarthritis: care instructions jhsieh Not available 01/31/2020 12:32:11 donovan's palsy: care instructions jhsieh Not available 01/31/2020 12:32:12 04/13/2020 [id number] thyroid nodules: care instructions sieh Not available 04/13/2020 10:29:00 benign paroxysma l positional vertigo (bppv): care instructions sieh Not available 04/13/2020 10:28:59 neck arthritis: exercises jhsieh Not available 04/13/2020 10:28:59 02/02/2021 [id number] benign paroxysma l positional vertigo (bppv): care instructions sieh Not available 02/02/2021 11:29:26 10/05/2022 [id number] heart valve disease: care instructions jhsieh Not available 10/05/2022 14:56:39 mitral valve prolapse: care instructions sieh Not available 10/05/2022 14:56:39 tetanus and diphtheria booster: care instructions sieh Not available 10/05/2022 14:59:47 benign paroxysma l positional vertigo (bppv): care instructions sieh Not available 10/05/2022 14:56:39 learning about high blood pressure jhsieh Not available 10/05/2022 14:56:39 12/07/2022 [id number] benign paroxysma l positional vertigo (bppv): care instructions sieh Not available 12/07/2022 17:32:41 Reason for Referral Grain Inspector Referral fo r Benign paroxysmal positional vertigo Please call patient for appointment, thanks! Referring Physician: Marlene Carbajal, Internal Medicine, Encounter Date: 12/07/2022 Results Created Date Observation Date Name Description Value Unit Range Abnormal Flag Note LastModifiedBy Organization Detail LastModifiedTime 03/20/20 20 03/20/2020 fine needl e aspir ation , ultra sound guide d, thyro id (PROC ) No observ ation record ed. [facility] (Imaging) [address] [place], [address], 03/20/2020 14:24:01 04/21/20 22 04/21/2022 MRI, ankle , w/o contr ast No observ ation record ed. [email or web address] Add On Lab Orders [address] [place], [address], 04/21/2022 16:04:12 05/27/20 23 05/27/2023 CT, abdom en + pelvi s, w/o contr ast No observ ation record ed. [address], [place], [address], 05/30/2023 16:42:55 06/01/20 23 06/01/2023 CT, head, w/o contr ast No observ ation record ed. [address] [facility], [place], [address], 06/02/2023 18:31:12 Result Notes None recorded. 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 Not Available [facility] 2 08:19:33 Dizziness 947261075 Active Not Available [facility] 2 08:19:33 Chronic osteoarthr itis 08495946 Active Not Available [facility] 2 08:19:33 Chronic low back pain 393590593 Active Not Available [facility] 2 08:19:33 Neck pain 42803175 Active Not Available [facility] 2 08:19:33 Lower abdominal pain 62902178 Active Not Available [facility] 2 08:19:33 Essential hypertensi on 57595536 Active Not Available [facility] 2 08:19:33 Retinal disorder 85184023 Active Not Available [facility] 2 08:19:33 Chronic neck pain 2515451842970 Active Not Available [facility] 2 08:19:33 Pain in right knee Active Not Available [facility] 2 08:19:33 Pain of hip region 91150871 Active Not Available [facility] 2 08:19:33 Problem Notes None recorded. Procedures Surgical History Date Name Laterality Status Provider Name and Address Organization Details Recorded Time Eye Surgery completed Johanny Sanchez MA [facility] 08/04/2014 16:05:55 Tonsillectomy completed Johanny tariq MA [facility] 08/04/2014 16:05:55 Tubal Ligation completed Johanny prater MA [facility] 08/04/2014 16:05:55 Imaging Results None recorded. Procedure [...] Address Organization Details Last Updated DateTime 3 21280.0 1 g 97 /min 98 % 98 % 140 mm[Hg] 80 mm[Hg] Digna Huizar MA [facility] 3 12:04:13 Date Recorded Body height Body mass index (BMI) Body weight Oxygen saturation Oxygen saturation in Arterial blood by Pulse oximetry Heart rate Systolic blood pressure Diastolic blood pressure Provider Name and Address Organization Details Last Updated DateTime 3 153.67 cm 26.7 kg/m2 28162.6 2 g 98 % 98 % 83 /min 142 mm[Hg] 80 mm[Hg] Jordyn Silverman MA [facility] 3 16:53:28 Date Recorded Body height Body mass index (BMI) Body weight Body temperature Oxygen saturation Oxygen saturation in Arterial blood by Pulse oximetry Heart rate Systolic blood pressure Diastolic blood pressure Provider Name and Address Organization Details Last Updated DateTime 1 153.67 cm 26.7 kg/m2 65553.3 4 g 98.4 [degF] 94 % 94 % 80 /min 138 mm[Hg] 74 mm[Hg] Michael Pal MA [facility] 1 10:56:46 Social History Question Answer Notes LastModified by Organizat ion Details LastModified Time Tobacco Smoking Status Never Smoker ANNA MARIE Cohen, [facility] 08/04/2014 16:08:24 What Was The Date Of [...] adjuvanted, trivalent, PF 05/09/2018 completed Not Available [facility] 2021 08:19:33 Influenza, high-dose, quadrivalent, PF 05/06/2020 completed Not Available [facility] 08:19:33 Influenza, split virus, quadrivalent, PF 04/01/2015 completed Not Available [facility] 0 02:39:16 Past Encounters Encounter ID Performer Location Encounter Start Date Encounter Closed Date Diagnosis/Indication Diagnosis SNOMED-CT Code Diagnosis ICD10 Code Diagnosis Note [id number] [facility] [address] [place] [address] 0 08/04/2014 15:28:35 08/04/2014 18:22:06 Hypertensive disorder 51845710 Hyperlipidemia 06391354 Chronic back pain 100468857 Blind right eye 767978330 Dizziness 233083661 [id number] MD Carin Sinclair (Adult Med) [address] [place] [address]1661[address] 0 09/15/2014 15:32:06 09/15/2014 17:48:20 Blind right eye 393331261 Hyperlipidemia 78520775 Hypertensive disorder 26405529 Chronic osteoarthritis 72804078 [id number] MD Carin Sinclair (Adult Med) [address] [place] [address] [phone] 0 10/14/2014 16:05:58 10/14/2014 17:30:46 Hypertensive disorder 52021013 Chronic low back pain 209751106 Neck pain 93913606 [id number] MD Carin Sinclair (Adult Med) [address] [place] [address] [phone] 0 03/23/2015 10:34:11 03/23/2015 11:35:34 Hypertensive disorder 90579016 Chronic low back pain 881310224 Lower abdominal pain 58844136 [id number] MD Carin Sinclair (Adult Med) [address] [place] [address] 62721-429 0 04/01/2015 10:18:00 04/01/2015 14:05:21 Lower abdominal pain 14831109 R10.30 Influenza vaccine needed 2439066967 106 Z28.3 Administra tion of pneumococcal vaccine 96545116 Z23 Essential hypertension 90440251 I10 [id number] MD Carin Sinclair (Adult Med) [address] [place] [address] 63758-518 0 12/04/2015 10:03:57 12/08/2015 09:38:39 Chronic osteoarthritis 32431136 M19.90 Chronic low back pain 27 9291821 M54.5 Essential hypertension 09599020 I10 Hyperlipidemia 47078385 E78.5 Neck pain 84108020 M54.2 Retinal disorder 8360539 9 H35.9 [id number] MD Carin Sinclair (Adult Med) [address] [place] [address]17[address]736 0 01/19/2016 15:02:22 01/19/2016 18:07:41 Chronic osteoarthritis 94313497 M19.90 Hyperlipidemia 33959633 E78.5 Chronic neck pain 218095 0788 107 M54.2 Pain in right knee 02564 23131 85889 M25.561 Pain of hip region 00056 002 M25.552 Hypertensive disorder 38 487797 I10 [id number] MD Carin Sinclair (Adult Med) [address] [place] [address] 52313-630 0 12/26/2017 09:50:25 01/01/2018 14:02:41 Osteoarthritis of hip 127709650 M16.12 medically clear ofr hip surgery. Impacted c erumen of bilateral ears 5183896870 098205 H61.23 ENT referral. [id number] MD Carin Sinclair (Adult Med) [address] [place] [address] 04288-466 0 12/29/2017 09:52:29 12/29/2017 14:26:17 Essential hypertension 48884183 I10 Well controlled , low salt diet. Under the care of r cardiologi Osteoarthr itis of knee 562729509 M17.11 Had cortisone shot before. Generalize d osteoarthritis 500151266 M15.9 Left hip, will call Dr. Dhruv Avila office for this medical clearnce. Chronic low back pain 27 1225824 M54.5 Degenerati ve lumbar disc, was told not a good surgical candidate Impacted cerumen 7711434 6 H61.23 [id number] MD Carin Sinclair (Adult Med) [address] [place] [address] 58377-116 0 03/19/2019 16:18:58 03/20/2019 12:15:11 Pre-surgery evaluation 037247884 Z01.818 No contraindi cation of right knee operation. Tino Baltazar office will be contacted for this issue. [id number] MD Carin Sinclair (Adult Med) [address] [place] [address] 32416-344 0 11/22/2019 09:45:42 11/22/2019 16:40:18 Chronic low back pain 575282646 M54.5 Degenerati ve lumbar disc, was told not a good surgical candidate, she agreed to sign on drug contract and drug test. Chronic ne ck pain for greater than 3 months 8999901757 76290 M54.2 Discussed with patient. [id number] MD Carin Sinclair (Adult Med) [address] [place] [address] 35762-265 0 11/22/2019 11:19:08 11/25/2019 14:36:15 Chronic neck pain 8042015037 107 M54.2 Chronic low back pain 27 2936056 M54.5 Degenerati ve lumbar disc, was told not a good surgical candidate [id number] MD Carin Sinclair (Adult Med) [address] [place] [address] 13255[address]724 0 11/28/2019 08:09:17 11/29/2019 13:20:31 Sensation of foreign body in throat 1121634949 03479 R09.89 She said that she has growth in her throat. 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 [id number] MD Carin Sinclair (Adult Med) [address] [place] [address] 17431-513 0 01/31/2020 08:02:44 02/04/2020 06:44:27 Donovan's palsy 050135596 G51.0 Discussed with patient, she agreed for thr medication as ordered, and will inform this office this week for the prognosis. She said tht she has full recovery 01-31-2020 . Generalize d osteoarthritis 111686440 M15.9 Left hip, will call Dr. Dhruv Avila office for this medical clearnce. [id number] [facility] [address] [place] [address] 01261-063 0 04/13/2020 08:39:51 04/14/2020 11:55:32 Thyroid nodule 753333032 E04.1 Pending biopsy. Cervical arthritis 63264 1000 M46.92 Stable. Benign par oxysmal positional vertigo 906466649 H81.13 Discussed with patient. Willing to try medication . [id number] MD Carin Sinclair (Adult Med) [address] [place] [address] 12327-702 0 02/02/2021 10:34:38 02/05/2021 10:15:18 Cataract 946953747 H26.9 Normal PE, ambulating , oriented times 4 , lungs clear to auscultati on, heart regular beat, no murmur, abdomen soft no mass, legs no edema, ROM of neck , shoulders, elbows, hands, hips , knees , feet and lower back are normal. No objection of left eye cataract operation. will contact her ophthalmol ogist office. Benign par oxysmal positional vertigo 906009633 H81.13 Discussed with patient. Willing to try medication . [id number] Marlene Carbajal MD [facility] (Adult Med) [address] [place] [address] 44081[address]865 0 10/05/2022 11:50:05 10/06/2022 15:06:40 Essential hypertension 89560958 I10 Well controlled , low salt diet. Under the care of her cardiologi st. On carvedilol 6.23mg bid. Benign par oxysmal positional vertigo 376981127 H81.13 Discussed with patient. Willing to try medication . Just refill meclizine 12.5 mg tid prn. Mitral valve prolapse 40 0636409 I34.1 Under the care of her cardiologi st. SARS-CoV-2 antigen vaccine declined 1096288821 Z28.21 She refused today 10-05-22. Administra tion of diphtheria, pertussis, and tetanus vaccine 979257165 Z23 She declined today 10-05-22. [id number] Marlene Carbajal MD [facility] (Adult Med) [address] [place] [address] 52307-841 0 12/07/2022 16:41:03 12/09/2022 12:42:47 Adverse reaction to drug 83819781 T50.905A She thinks the meclizine migh have cause her taste and lips to be numb, she stopped about 2 weeks ago. But symptoms persists. no difficulty of breathing. no sore throat. , she put hydrogen peroxide in her mouth trying to comfort herself, She agreed to try OTC xylocaine oral lozenges. Benign par oxysmal positional vertigo 938048877 H81.13 Discussed with patient. Willing to try medication . Just refill meclizine 12.5 mg tid prn. Meclizine has been stopped. She agreed for the ENT referral for her vertigo or dizziness. Health Concerns Section Related Observation LastModified by Organization Erwin vaughn LastModified Time None Recorded Concern Status LastModified by Organization Details LastModified Time None Recorded Advance Directives Directive None Recorded Payers Insurance Date Sequence Insurance Name Policy Number Policy Pereyra Covered Member ID Pereyra Member ID Guarantor Name 10/05/2022 1 [facility] (MEDICARE REPLACEMENT/ ADVANTAGE - HMO) [id number] Shania Stevensonrett [id number] Shania Stevensonrett 07/07/2023 1 [employer] (MEDICARE REPLACEMENT/ ADVANTAGE - PPO) [id number] Shania Stevensonrett [id number] Shania Flores Harsha 10/05/2022 1 [facility] (MEDICARE REPLACEMENT/ ADVANTAGE - PPO) [id number] Shania Stevensonrett [id number] Shania Flores Harsha 10/05/2022 1 [facility] (MEDICARE REPLACEMENT/ ADVANTAGE - HMO) [id number] Perry Pacheco [id number] Shania Stevensonrett 10/05/2022 3 [place] [id number] Shania Stevensonrett [id number] Shania Stevensonrett 10/05/2022 2 [place] Shania Stevensonrett [id number] Shania Flores Harsha 10/05/2022 2 [place] Shania Rodriguezt [id number] Shania Stevensonrett 10/05/2022 3 [place] [facility] - FQ Shania Rodriugezt [id number] Shania Stevensonrett 08/20/2023 PAYMENT PLAN Shania Stevensonrett 10/05/2022 [place] - [facility] Shania Stevensonrett [id number] Shania [facility] Notes Date Note Type Note Provider Name and Address Organization Details Recorded Time 01/31/2020 text/html This is phone visit, due to miranda virus pandemic, she understood and agreed, 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 Marlene Carbajal MD Attn: Accounting[address] [place], [address], [place] [facility] 01/31/2020 12:33:33 04/13/2020 text/html This is phone visit, due to miranda virus pandemic,she understood and and agreed, had thyroid nodule , had biopsies, last was in [facility], pending the pathology report. 2. Chronic neck arthritis, she said is C5-C6. 3. Head sing around while bends her head over, NKDA. 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 Marlene Carbajal MD Attn: Accounting,[address] [facility], [place], [address], [place] [facility] 02/02/2021 11:30:00 10/05/2022 text/html Office visit, NKDA. history of hypertension BPPV, and mitral valve prolapse. on meclizine, losartan, carvedilol. Marlene Carbajal MD Attn: Accounting, [address] [facility], [place], [address], [place] [facility] 10/05/2022 14:59:56 12/07/2022 text/html Office, acute appointment today. NKDA. She thinks taht she might have reaction to the meclizine. so she stopped. 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 Marlene Carbajal MD Attn: Accounting[address] [facility], [place], [address], [place] [facility] 12/07/2022 17:32:44 OBGyn Episode No OBEpisode recorded.
--- OUTSIDE RECORDS SUMMARY | 2024-12-05 03:49 | XMS_ITS | Referral Summary ---
Author Organization [facility] Address [address] [place] [address] Care Team Providers Care Piano Assembler Name Role Phone Unknown, Notinfile Primary Care Provider Unavail able Encounters Date Type Department Care Team Description 11/22/2024 Telephone [facility] [address] [place] [phone] Brittany Meraz MD 09/23/2024 10:15 AM CDT Office Visit [facility] [address] [place] [phone] Ko Gimenez, OD Vitreous syneresis of left eye (Primary Dx); Aphakia, right eye; Foreign body sensation, left eye 09/09/2024 Telephone [facility] [address] [place] [phone] Wendy Ford MD 09/09/2024 Ophth Exam [facility] [address] [place] [phone] Wendy Ford MD 09/09/2024 3:37 PM CDT - 09/09/2024 6:24 PM CDT Emergency [facility] Emergency Department [address] [place] [phone] Jero Reagan MD Changes in vision (Primary [...] on file 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
--- OUTSIDE RECORDS SUMMARY | 2024-12-05 03:49 | XMS_ITS | Clinical Summary ---
Author Organization [facility] Address [address] [place] [address] Care Team Providers Care Corrosion Control Fitter Name Role Phone Unknown, Notinfile Primary Care Provider Unavail able Allergies Active Allergy Reactions Criticality Noted Date [...] Type Department Care Team Description 11/22/2024 Telephone [facility] [address] [place] [phone] Brittany Meraz MD 09/23/2024 10:15 AM CDT Office Visit [facility] [address] [place] [phone] Ko Gimenez, OD Vitreous syneresis of left eye (Primary Dx); Aphakia, right eye; Foreign body sensation, left eye 09/09/2024 3:37 PM CDT - 09/09/2024 6:[address] [facility] Emergency Department [address] [place] [address] Jero Reagan MD Changes in vision (Primary Dx) Discharge Disposition: Discharge to home or self care 09/09/2024 Telephone [facility] [address] [place] [phone] Wendy Ford MD 09/09/2024 Ophth Exam [facility] [address] [place] [phone] Wendy Ford MD from Last 3 Months Surgical History Surgery Date Site/Laterality Comments ME LIG/TRNSXJ FLP TUBE ABDL/VAG APPR UNI/BI Tubal Ligation - (Added by TW Conv) EYE SURGERY Eye Surgery - (Added by TW Conv) ME TONSILLECTOMY PRIMARY/SECONDARY <AGE 12 Tonsillectomy - (Added by TW Conv) ME RHINP PRIM LAT&ALAR CRTLGS&/ELVTN NASAL TI Rhinoplasty - (Added by TW Conv) HIP SURGERY CATARACT EXTRACTION 06/26/2022 - 06/25/2023 Left RETINAL DETACHMENT SURGERY Bilateral Medical History Medical History Date Comments Personal history of other di seases of the circulatory system History of hypertension - (A dded by TW Conv) Personal history of other di seases [...] on file 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
--- OUTSIDE RECORDS SUMMARY | 2024-12-05 03:49 | XMS_ITS | Encounter Summary ---
Author Organization [facility] Address [address] 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 Gender Identity Not on file Sexual Orientation Not on file documented as of this encounter Plan of Treatment Upcoming Encounters Date Type Department Care Team (Late st Contact Info) Description 12/09/2024 11:15 AM CDT Office Visit [facility] Oncology and Hematology - [place]h [address] [place] [address] [address] [place] [address] [place] [address] [place] [address] [address] [place] [address] documented as of this encounter Visit Diagnoses Not on filedocumented in this encounter Care Teams Optometrist/Practice Owner Relationship Specialty Start Date End Date Chico Gates MD [address] [place] [address] PCP - General Family Practice 07/24/23 documented as of this encounter
[2024-12-05] MEDS: LACTATED RINGERS 1,000 ML 30 ML IV CONT ×2 (10:45→13:48)
[2024-12-05] MEDS: KETOROLAC 15 MG/ML VIAL (*BKC) IV PUSH (10:50)
[2024-12-05] MEDS: ACETAMINOPHEN 500 MG TABLET 1000 MG PO (10:50)
--- NOTE | 2024-12-05 11:12 | PM.IMHP ---
H&P: HPI History of Present Illness Date/Time: 12/05/24 11:12 Chief Complaint: Right lower quadrant spigelian hernia Narrative: Shania is an 84 y/o female who presents for evaluation of a hernia. PETscan was done at on 09/05/24 which showed a right sided Spigelian hernia containing non-obstructed small bowel. She has a bulge in the right abdomen that is reducible. She feels that it is painful at times. She reports having 2 BM's per day. Her appetite is back to baseline. Review of Systems Review of Systems: All systems reviewed & are unremarkable except as noted in HPI and below PMFSH Past Medical History Medical History Non-healing surgical wound right carotid scar Thyroid nodule Primary adenocarcinoma of ascending colon Ataxia Cerebrovascular disease Fecal occult blood test positive Symptomatic anemia Impacted cerumen of both ears Chest pain BARNETT (dyspnea on exertion) Dyslipidemia Essential hypertension Preop cardiovascular exam Surgical History Surgical History Hx of colectomy Hx of colonoscopy History of right knee joint replacement History of left hip replacement H/O parotidectomy H/O: hysterectomy H/O tubal ligation Hx of tonsillectomy H/O eye surgery Family History Family History Mother Asthma Heart disease Heart attack Father Heart attack Daughter Cerebral palsy Vision disorder Sibling Asthma Social History Social History Social History: Caffeine-soda Smoking status: Never smoker Second hand tobacco smoke exposure: No Alcohol intake: never Substance use: never Substance use type: does not use Do You Feel Safe in your Home?: Yes Lack of Transportation: No Lack of Food: Never True Current Housing: I Have Housing Concerned About Future Housing: No Difficulty Paying Gas/Electric Bills: No Difficulty Paying for Meds: No Currently Unemployed: No Education: Master's Degree or Higher Difficulty w/ Childcare or Family Care: No Living arrangements: alone Occupation/Education: retired Additional occupation/education comments: [employer] Gender identity (if verbalized by the patient): Female Spiritual care concerns: No Meds Home Medications and Allergies Home Medications ?Medication ?Instructions ?Recorded ?Confirmed ?Type timolol maleate 0.5 % eye drops 1 drop RIGHT EYE Q12H 05/14/19 11/20/24 History tramadol 50 mg tablet 50 mg PO Q6H PRN pain #30 tabs 08/25/23 11/20/24 Rx losartan 25 mg tablet See Rx Instructions .Route 07/03/24 11/20/24 Rx .COMPLEX #30 tabs carvedilol 6.25 mg tablet 6.25 mg PO Q12H #60 tabs 07/05/24 11/20/24 Rx hydrochlorothiazide 25 mg tablet See Rx Instructions .Route 07/22/24 11/20/24 Rx .COMPLEX #30 tabs hydrocodone 5 mg-acetaminophen 325 1 tablet PO Q6H PRN pain #20 tabs 09/24/24 11/20/24 Rx mg tablet cyanocobalamin (vitamin B-12) 1,000 mcg PO DAILY 11/20/24 11/20/24 History 1,000 mcg capsule cyclobenzaprine 10 mg tablet 10 mg PO PRN PRN muscle spasm 11/20/24 11/20/24 History Allergies Allergy/AdvReac Type Severity Reaction Status Date / Time codeine AdvReac Intermediate Nausea Verified 11/20/24 10:04 Exam Const: General: cooperative, comfortable and no acute distress Resp: Auscultation: clear to auscultation bilaterally Cardio: Rate: regular rate Rhythm: regular rhythm GI: Inspection: normal to inspection GI Palp: Yes abdominal tenderness, Yes Soft to palpation, Yes Tenderness to palpation present (GI) and Yes Hernia present Other: right lower quadrant spigelian hernia Assessment and Plan Assessment and plan (1) Spigelian hernia: Code(s): K43.9 - Ventral hernia without obstruction or gangrene Status: Acute Assessment and Plan: will set up for robotic assisted repair of right lower quadrant spigelian hernia with mesh
--- NOTE | 2024-12-05 11:14 | WPDHPUPDATE1 ---
History and Physical Update Update Date/Time: 12/05/24 11:14 History and Physical has been reviewed, including an updated exam of the patient. There are NO changes in the patient's condition. Risks, benefits, and alternatives have been discussed and questions answered. Patient agrees to proceed with procedure.
--- NOTE | 2024-12-05 11:58 | WPDANESEPPF ---
Anes - Initial Pre Proc Eval Procedure: Operation Date: 12/05/24 12:00 Proposed Procedures p Robotic Assisted Right Lower Quadrant Spigelian Hernia - Ary Naik MD Date/Time: 12/05/24 11:58 Surgeon: Ary Naik MD Pre Op Diagnosis: Spigelian Hernia Patient Data Age: 84 Gender: F Height: 1.55 m Weight: 62 kg Allergies Allergy/AdvReac Type Severity Reaction Status Date / Time codeine AdvReac Intermediate Nausea Verified 11/20/24 10:04 Home Medications ?Medication ?Instructions ?Recorded ?Confirmed ?Type timolol maleate 0.5 % eye drops 1 drop RIGHT EYE Q12H 05/14/19 11/20/24 History tramadol 50 mg tablet 50 mg PO Q6H PRN pain #30 tabs 08/25/23 11/20/24 Rx losartan 25 mg tablet See Rx Instructions .Route 07/03/24 11/20/24 Rx .COMPLEX #30 tabs carvedilol 6.25 mg tablet 6.25 mg PO Q12H #60 tabs 07/05/24 11/20/24 Rx hydrochlorothiazide 25 mg tablet See Rx Instructions .Route 07/22/24 11/20/24 Rx .COMPLEX #30 tabs hydrocodone 5 mg-acetaminophen 325 1 tablet PO Q6H PRN pain #20 tabs 09/24/24 11/20/24 Rx mg tablet cyanocobalamin (vitamin B-12) 1,000 mcg PO DAILY 11/20/24 11/20/24 History 1,000 mcg capsule cyclobenzaprine 10 mg tablet 10 mg PO PRN PRN muscle spasm 11/20/24 11/20/24 History Patient hx anesthesia problems: none Family hx anesthesia problems: none Results Review: All pre-operative results and documents have been reviewed as part of the pre-operative evaluation. FORMERLY [facility], [facility]–1983 Past Medical History Medical History Non-healing surgical wound right carotid scar Thyroid nodule Primary adenocarcinoma of ascending colon Ataxia Cerebrovascular disease Fecal occult blood test positive Symptomatic anemia Impacted cerumen of both ears Chest pain BARNETT (dyspnea on exertion) Dyslipidemia Essential hypertension Preop cardiovascular exam Surgical History Surgical History Hx of colectomy Hx of colonoscopy History of right knee joint replacement History of left hip replacement H/O parotidectomy H/O: hysterectomy H/O tubal ligation Hx of tonsillectomy H/O eye surgery Family History Family History Mother Asthma Heart disease Heart attack Father Heart attack Daughter Cerebral palsy Vision disorder Sibling Asthma Social History Social History Social History: Caffeine-soda Smoking status: Never smoker Second hand tobacco smoke exposure: No Alcohol intake: never Substance use: never Substance use type: does not use Do You Feel Safe in your Home?: Yes Lack of Transportation: No Lack of Food: Never True Current Housing: I Have Housing Concerned About Future Housing: No Difficulty Paying Gas/Electric Bills: No Difficulty Paying for Meds: No Currently Unemployed: No Education: Master's Degree or Higher Difficulty w/ Childcare or Family Care: No Living arrangements: alone Occupation/Education: retired Additional occupation/education comments: [employer] Gender identity (if verbalized by the patient): Female Spiritual care concerns: No Anes - Eval Final PreProcedure Day of Procedure 12/05/24 11:58 Patient weight: normal Heart: regular rate and rhythm Lungs: clear to auscultation Airway: Mallampati scale class II Neurological: alert and oriented Last oral intake: >/= 8 hours ASA classification: III Emergent: no Anesthetic plan: proceed Anesthesia type and monitoring: general ETT and standard monitoring Results Review: All pre-operative results and documents have been reviewed as part of the pre-operative evaluation. Informed Consent: The patient's anesthetic plan and its attendant risks and benefits were discussed with the patient/family/POA. Questions were solicited and answers provided to the satisfaction of the patient/family/POA.
[2024-12-05] MEDS: ceFAZolin 2 GM/D5W 50 ML 2 GM/50 ML BAG IVPB (12:30)
[2024-12-05] MEDS: BUPIVACAINE/EPINEPHRINE 0.5% 30 ML VIAL INFILTRATE (13:09)
--- NOTE | 2024-12-05 13:50 | W.PM.PROC2 ---
Procedure Note - Detailed Date of Procedure 12/05/24 Pre-op Diagnosis right lower quadrant incarcerated spigelian hernia Post-op Diagnosis Same Procedure Performed robotic assisted repair of incarcerated right lower quadrant spigelian hernia measuring approximately 4 cm with mesh Surgeon Ary Naik MD Anesthesia General and Local Indications 84-year-old presenting with an incarcerated right lower quadrant spigelian hernia. Defect noted to measure approximately 4 cm with noted incarcerated small intestine. Findings right lower quadrant incarcerated spigelian hernia with small bowel Description of Procedure The patient was taken to the operating room placed in the supine position. After adequate induction of general anesthesia, the patient was prepped and draped in the normal sterile fashion. A time-out was then done to verify the patient's identity, as well as the procedure being performed. A 8 mm incision was made in the left upper quadrant and the Veress needle was placed into the peritoneal cavity. CO2 gas was then insufflated. After adequate pneumoperitoneum was achieved, the Veress needle was removed and 8 mm robotic Optiview trocar was placed. I then placed a laparoscopic scope through this trocar site. There was noted to be some adhesions to the periumbilical midline and right lower abdomen. I was able to place an additional 8 mm port in the left mid abdomen, as well as an additional 8 mm port in the left lower abdomen. I then took down the midline adhesions. I was able to visualize the right lower quadrant hernia with noted incarcerated small intestine. Robot was then docked to the 3 trocar sites. Using careful dissection, I was able to reduce the small intestine from the hernia. The small intestine was examined and noted to be viable and pathology free. I then created a flap approximately 6 cm proximal to the hernia. This preperitoneal flap was carried medial and lateral to the hernia defect to the level of the pubic tubercle medially and the transversalis fascia laterally. I then reduced the hernia sac and lay large amount of preperitoneal fat from the hernia. Once this was done, this left an approximately 4 cm defect. The defect was closed with 0 Stratafix suture. Given the location of the hernia, a large 3DMax mesh was placed. Mesh was centered over this low spigelian hernia defect. The mesh was noted to have good wide local coverage of the defect and sat nicely in this space. I then placed a couple of Vicryl sutures to hold the mesh in position. I then closed the flap using 2 0 V lock suture. The robot was then undocked and all trocar sites were closed with 4-0 Monocryl subcuticular suture. Dermabond was placed on all wounds. The patient tolerated the procedure well and was extubated postoperatively. She will be transferred to the recovery room in stable condition. Implants Large right 3DMax mesh Estimated Blood Loss 10 Pathology None sent Complications No immediate complications Condition Stable Disposition PACU [facility] Billing Surgery - Charge Forward: Surgery Billing
[2024-12-05] MEDS: fentaNYL CITRATE INJ (*CRX) 100 MCG/2 ML VIAL 25 MCG IV PUSH (14:45)
--- NOTE | 2024-12-05 16:42 | ADMGEN ---
This patient, Shania Mcleod, was admitted to -. Patient/family oriented to hospital policies and general routines including ID bracelet, bed and alarms, visiting hours, pain management, procedures, bathroom and other care routines, personal items, smoking policy, room service/diet, and visiting hours. Information on how to activate the Rapid Response Team has been discussed. Patient/Family are encouraged to report perceived risks to care and to ask questions if they do not understand what they are told or what they should do.
[2024-12-05] MEDS: HYDROcodone/acetaminophen (*CRX) 5-325 MG TABLET 1 TAB PO ×2 (17:33→23:09)
[2024-12-06 00:17] VITALS: BP 133/84; PULSE 73; RESP 12; TEMP 36.2; O2SAT 98
[2024-12-06] MEDS: HYDROcodone/acetaminophen (*CRX) 5-325 MG TABLET 1 TAB PO ×2 (05:15→12:59)
[2024-12-06 05:41] VITALS: BP 133/84; PULSE 73; RESP 12; TEMP 36.2; O2SAT 98
[2024-12-06 06:33] LABS: Hematocrit 39.3 % (37.0-47.0); Hemoglobin 12.8 g/dL (12.0-15.0); Mean Corpuscular HGB Conc 32.6 g/dl (32-36); Mean Corpuscular Hemoglobin 30.3 pg (26-34); Mean Corpuscular Volume 93.1 fl (80-100); Mean Platelet Volume 10.6 fl (7.4-10.4); Platelet Count Result 153 k/mm3 (150-375); Red Blood Count 4.22 M/mm3 (4.2-5.4); Red Cell Distribution Width 14.4 % (11.5-14.5); White Blood Count 5.9 K/mm3 (4.5-10.0)
[2024-12-06 06:47] LABS: Anion Gap 5 mmol/L (4-12); Blood Urea Nitrogen 9 mg/dL (7-17); Calcium 8.8 mg/dL (8.4-10.2); Carbon Dioxide 26 mmol/L (22-30); Chloride 105 mmol/L (98-107); Estimated CRCL calculation 34 ml/min; Estimated Glomerular Filt Rate 58; Glucose 94 mg/dL (65-110); Potassium 3.3 mmol/L (3.4-5.0); Sodium 136 mmol/L (137-145)
[2024-12-06 08:00] VITALS: BP 136/74; PULSE 77; RESP 14; TEMP 36.4; O2SAT 96
--- NOTE | 2024-12-06 14:45 | P.DS_ITS ---
DS: Admitting Diagnosis Discharge Date 12/06/2024 Admitting Diagnosis incarcerated right lower quadrant spigelian hernia DS: Discharge Diagnosis Discharge Diagnosis (1) Spigelian hernia: Code(s): K43.9 - Ventral hernia without obstruction or gangrene Status: Acute Assessment and Plan: status post robotic assisted repair with mesh, routine postoperative care, home with p.o. analgesia and Colace, light activity restrictions and binder, follow- up 2 weeks DS: Summary Hospital Course Reason for hospitalization: incarcerated right lower quadrant spigelian hernia Hospital Course: The patient is an 84-year-old female presenting with an incarcerated right lower quadrant spigelian hernia. The patient was taken to the operating room on 12/05/2024 and robotic assisted repair of incarcerated right lower quadrant spigelian hernia was performed. Please see fulll operative report for details of that procedure. Postoperatively, the patient was complaining of pain, nausea, dizziness. Given these findings, the patient was admitted for observation. Overnight, the patient felt much better and her diet was able to be advanced. On postoperative day 1. , patient is tolerating a heart healthy diet without issue. She has been up and ambulating without issue. Her pain is well controlled with p.o. analgesia. The patient will be discharged home with p.o. analgesia and Colace. She will be on light activity restriction including an abdominal binder. She has been given other instructions for routine postoperative care. She will follow-up with me in 2 weeks. Status at Discharge Functional status at discharge: independent ambulation Overall status at discharge: patient is progressing back to baseline Time Spent with Patient Time attestation: Total time spent providing and/or coordinating discharge services: Time spent: Less than 30 minutes Exam Const: General: cooperative, comfortable and no acute distress Resp: Auscultation: clear to auscultation bilaterally Cardio: Rate: regular rate Rhythm: regular rhythm GI: Inspection: normal to inspection, non-distended and incision GI Palp: Yes abdominal tenderness DS: Data Data Completed and Pending Labs on day of discharge: Labs from last 24 hours 12/06/24 06:00 WBC 5.9 RBC 4.22 Hgb 12.8 Hct 39.3 MCV 93.1 MCH 30.3 MCHC 32.6 RDW 14.4 Plt Count 153 MPV 10.6 H Sodium 136 L Potassium 3.3 L Chloride 105 Carbon Dioxide 26 Anion Gap 5 BUN 9 Creatinine 0.92 Estim Creat Clear Calc 34 Estimated GFR 58 L Glucose 94 Calcium 8.8 Discharge Plan Discharge Patient Disposition: Home Discharge Instructions: DISCHARGE INSTRUCTION SHEET FOR HERNIA, GALLBLADDER AND APPENDIX SURGERIES DR. NAIK PATIENT TO TAKE HOME 1. May shower in 24 hours, no soaking in bath x 2weeks. 2. Call office for: * Wound increasingly painful or bleeding * Vomiting * Fever of greater than 101 degrees 3. If no bowel movement for three days, take 1 oz. (30 ml) Milk of Magnesia or MiraLax 17g 1 to 2 times daily. 4. No heavy lifting > 10-15 pounds x 6 weeks for hernia repairs and 2 weeks for laparoscopic cholecystectomy or appendectomy. 5. No driving for 3 days or while taking narcotic pain medications. 6. Ice to surgical site for 48 hours (30 min on, then 30 min off). 7. Up walking 10-30 minutes three times per day. 8. Resume previous home medications. 9. Follow-up 10-14 days in office for wound check or as previously scheduled. ([phone]) 10. Oral pain medications prescription to be sent to pharmacy. Take Tylenol 500mg every 6 hours and Ibuprofen 600mg every 6 hours for the first 2 days, then as needed. 11. NUTRITION: Start out by drinking fluids and increase your diet as tolerated. If you experience nausea, try dry toast, crackers, and 7-UP. If nausea or vomiting persists, contact your surgeon?s office. 12. Gallbladders-Low Fat Diet for 2 weeks (send care note of low fat diet) 13. Inguinal Hernias-wear scrotal support for 48 hours 14. Abdominal Hernias-if sent home with abdominal binder, wear for the first 2 weeks (may remove to shower or at night to sleep). Revised 06/2020 Patient Language: Nauruan Stand Alone Forms: General Discharge Instructions Follow-up/Referrals: Ary Naik MD [Physician] - 2 Weeks Discharge Orders: Discharge Order (Routine); Ordered 12/06/24 Ordered By: Ary Naik Discharge Medications: New hydrocodone-acetaminophen 5-325 mg tablet 1 tablet PO Q6H PRN (Reason: pain) Qty: 20 0RF docusate sodium [Colace] 100 mg capsule 100 mg PO BID Qty: 20 0RF Continued timolol maleate 0.5 % drops 1 drop RIGHT EYE Q12H hydrocodone-acetaminophen 5-325 mg tablet 1 tablet PO Q6H PRN (Reason: pain) Qty: 20 0RF tramadol 50 mg tablet 50 mg PO Q6H PRN (Reason: pain) Qty: 30 0RF cyclobenzaprine 10 mg tablet 10 mg PO PRN PRN (Reason: muscle spasm) cyanocobalamin (vitamin B-12) 1,000 mcg capsule 1,000 mcg PO DAILY losartan 25 mg tablet See Rx Instructions .ROUTE .COMPLEX Qty: 30 5RF Dose Instruction: TAKE 1 TABLET BY MOUTH DAILY Rx Instructions: TAKE 1 TABLET BY MOUTH DAILY carvedilol 6.25 mg tablet 6.25 mg PO Q12H Qty: 60 5RF Rx Instructions: TAKE 1 TABLET BY MOUTH EVERY 12 HOURS WITH MEAL AND FOOD hydrochlorothiazide 25 mg tablet See Rx Instructions .ROUTE .COMPLEX Qty: 30 5RF Dose Instruction: TAKE 1 TABLET(25 MG) BY MOUTH DAILY Rx Instructions: TAKE 1 TABLET(25 MG) BY MOUTH DAILY
== END 2024-12-06 15:15 | disposition home or self-care (01) ==
LOC: ANHSURGERY 13:48 → ANH3MEDSUR 16:58
PROVIDERS: PCP Family Medicine; Visit Provider Surgery
PROC: (CPT 49594; principal; 2024-12-05 12:00)
DX: K43.6 Other and unspecified ventral hernia with obstruction, without gangrene (principal)
CPT/HCPCS: 49594; S2900; 36415; 80048; 85027; A9270; C1781; J0690; J1885; J2003; J2405; J2704; J3010; J7030; J7120

== ENCOUNTER 2024-12-26 08:17 | Outpatient (CLI) | payer MEDICARE, SELFPAY ==
--- OUTSIDE RECORDS SUMMARY | 2024-12-26 08:21 | XMS_ITS | Referral Summary ---
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
--- OUTSIDE RECORDS SUMMARY | 2024-12-26 08:21 | XMS_ITS | Clinical Summary ---
Author Organization [facility] Address [address] [place] [phone] Care Team Providers Care Tier Over Name Role Phone Unknown, Notinfile Primary Care [...] Type Department Care Team Description 11/22/2024 Telephone [facility] Ophthalmology [address] [place] [phone] Brittany Meraz MD from Last 3 Months Surgical History Surgery Date Site/Laterality Comments [place] LIG/TRNSXJ FLP TUBE ABDL/VAG APPR UNI/BI Tubal Ligation - (Added by Conv) EYE SURGERY Eye Surgery - (Added by Conv) [place] TONSILLECTOMY PRIMARY/SECONDARY <AGE 12 Tonsillectomy - (Added by TW Conv) [place] RHINP PRIM LAT&ALAR CRTLGS&/ELVTN NASAL TI Rhinoplasty [...] History of cardiac disorder - (Added by Conv) Hypertension Family History Medical History Relation Name Comments Cancer Brother 1 Hypertension Brother 1 Retinal detachment Brother 1 Cancer Brother 2 Hypertension Brother 2 Cancer Brother 3 Hypertension Brother 3 Cancer Brother 4 Hypertension Brother 4 No Known Problems Father No Known Problems Mother Diabetes Other Diabetes Mellit us - (Added by TW Conv) Cancer Sister [...] on file 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
--- OUTSIDE RECORDS SUMMARY | 2024-12-26 08:21 | XMS_ITS | Clinical Summary ---
Author Organization [facility] Katey armendariz [facility] [place] Address [address] [place] [address] Care Team Providers Care Part Time Receptionist Name Role Phone Chico Gates MD Primary Care Provider [phone] Allergies Active Allergy Reactions Criticality Noted Date Comments Codeine Other (See Comments) 07/24/2023 other Medications timoloL maleate (TIMOPTIC) 0.25% solution 1 Drop 2 times daily. Active tiZANidine (ZANAFLEX) 2 mg Capsule Take 2 mg by mouth. 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 Gender Identity Not on file Sexual Orientation Not on file Last Filed Vital Signs Vital Sign Reading Time Taken Comments Blood Pressure 116/73 08/30/2024 9:05 AM SENIOR BRAND MANAGER Pulse 76 08/30/2024 9:05 AM SENIOR BRAND MANAGER Temperature 35.7 C (96.3 F) 08/30/2024 9:05 AM SENIOR BRAND MANAGER Respiratory Rate 15 08/30/2024 9:05 AM SENIOR BRAND MANAGER Oxygen Saturation 97% 08/30/2024 9:05 AM SENIOR BRAND MANAGER Inhaled Oxygen Concentration - - Weight 64.2 kg (141 lb 9.6 oz) 08/30/2024 9:05 A M SENIOR BRAND MANAGER Height 156.2 cm (5' 1.5) 07/24/2023 9:51 AM SENIOR BRAND MANAGER Body Mass Index 26.32 07/24/2023 9:51 AM SENIOR BRAND MANAGER Plan of Treatment Upcoming Encounters Date Type Department Care Team (Late st Contact Info) Description 01/01/2025 2:00 PM CDT Office Visit [facility] Oncology and Hematology - [place] [address] [facility] [address] [place] [address] Anirudh Adair MD [address] [facility] [address] [place] [address] Health Maintenance Due Date Last Done Comments DTAP/TDAP/TD VACCINES (1 - Tdap) 1959 PNEUMOCOCCAL VACCINE 50+ YEA RS (1 of 1 - PCV) 1990 ZOSTER VACCINE (1 of 2) 1990 OSTEOPOROSIS SCREENING 2005 RSV VACCINE (60+ or ) (1 - 1-dose 75+ series) 2015 Medicare Advantage ([place]) Prev entative Visit/Annual Wellness Visit 06/26/2024 INFLUENZA VACCINE (#1) 2025 , 05/09/2018, 04/01/2015 Insurance AET[employer] PPO [facility] Care Teams Part Time Receptionist Relationship Specialty Start Date End Date Chico Gates MD [address] [place] [address] PCP - General Family Practice 07/24/23
--- OUTSIDE RECORDS SUMMARY | 2024-12-26 08:21 | XMS_ITS | Data Portability ---
Author Organization [facility] HARRYDorota Address [address] [place] [address] Assessment No assessment recorded. Plan of Treatment Reminders Order Date Submit Date Provider Last Modified By Organization Details Last Modified Time Details Appointments None recorded . Lab None recorded . Referral otolaryn gologist referral - Please call patient for appointm ent, thanks! 2022 023 [facility], [address] [facility], [place], [address], 3 05:01:41 Procedures None recorded . Surgeries None recorded . Imaging None recorded . Medication Orders losartan 25 mg tablet 2022 023 [facility] #59867, [address], [place], [id number], 3 14:56:52 hydrochl orothiaz aneudy 25 mg tablet 2022 023 [facility] #08385, [address], [place], [id number], 3 14:56:48 meclizin e 12.5 mg tablet 2020 021 [facility] #97813, [address], [place], [id number], 1 11:29:35 meclizin e 12.5 mg tablet [address] [facility] #49745, [address], [place], [id number], 0 10:29:05 calcium 600 mg (as carbonat e)-vitam in D3 10 mcg (400 unit) tablet 2019 020 [facility]39[facility], [address] , [place], [place], [id number], 1 10:50:41 Patient TargetsNo targets recorded. Patient Instructions Encounter Date Encounter Id Patient Instructions Last Modified By Organization Details Last Modified Time 01/31/2020 [id number] osteoarthritis: care instructions jhsieh Not available 01/31/2020 12:32:11 donovan's palsy: care instructions jhsieh Not available 01/31/2020 12:32:12 04/13/2020 [id number] thyroid nodules: care instructions jhsieh Not available 04/13/2020 10:29:00 benign paroxysma l positional vertigo (bppv): care instructions sieh Not available 04/13/2020 10:28:59 neck arthritis: exercises jhsieh Not available 04/13/2020 10:28:59 02/02/2021 [id number] benign paroxysma l positional vertigo (bppv): care instructions jhsieh Not available 02/02/2021 11:29:26 10/05/2022 [id number] heart valve disease: care instructions jhsieh Not available 10/05/2022 14:56:39 mitral valve prolapse: care instructions jhsieh Not available 10/05/2022 14:56:39 tetanus and diphtheria booster: care instructions jhsieh Not available 10/05/2022 14:59:47 benign paroxysma l positional vertigo (bppv): care instructions jhsieh Not available 10/05/2022 14:56:39 learning about high blood pressure jhsieh Not available 10/05/2022 14:56:39 12/07/2022 [id number] benign paroxysma l positional vertigo (bppv): care instructions sieh Not available 12/07/2022 17:32:41 Reason for Referral It Director Referral fo r Benign paroxysmal positional vertigo Please call patient for appointment, thanks! Referring Physician: Marlene Carbajal, Internal Medicine, Encounter Date: 12/07/2022 Results Created Date Observation Date Name Description Value Unit Range Abnormal Flag Note LastModifiedBy Organization Detail LastModifiedTime 03/20/20 20 03/20/2020 fine needl e aspir ation , ultra sound guide d, thyro id (PROC ) No observ ation record ed. [facility] (Imaging) [address] [place], [address], 03/20/2020 14:24:01 04/21/20 22 04/21/2022 MRI, ankle , w/o contr ast No observ ation record ed. [email or web address] Add On Lab Orders [address] [place], [address], 04/21/2022 16:04:12 05/27/20 23 05/27/2023 CT, abdom en + pelvi s, w/o contr ast No observ ation record ed. [address], [place], [address], 05/30/2023 16:42:55 06/01/20 23 06/01/2023 CT, head, w/o contr ast No observ ation record ed. [address], [place], [address], 06/02/2023 18:31:12 Result Notes None recorded. 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 Not Available [facility] 2 08:19:33 Dizziness 190224293 Active Not Available [facility] 2 08:19:33 Chronic osteoarthr itis 81017370 Active Not Available [facility] 2 08:19:33 Chronic low back pain 220811630 Active Not Available [facility] 2 08:19:33 Neck pain 66526023 Active Not Available [facility] 2 08:19:33 Lower abdominal pain 33666777 Active Not Available [facility] 2 08:19:33 Essential hypertensi on 84874450 Active Not Available [facility] 2 08:19:33 Retinal disorder 86642106 Active Not Available [facility] 2 08:19:33 Chronic neck pain 3092251812272 Active Not Available [facility] 2 08:19:33 Pain in right knee Active Not Available [facility] 2 08:19:33 Pain of hip region 99040277 Active Not Available [facility] 2 08:19:33 Problem Notes Documentation Provider Name and Address Organization Details Recorded Time Ophthalmology Note : This document (1 of 1) was received from [email or web address] [address] [employer] on 12/22/2023 through Direct Message along with the following message body content: Patient Name: SHANIA BAKER. Patient : 1940. Patient . Esperanza nelson [facility] 12/25/2023 14:50:06 Procedures Surgical History Date Name Laterality Status Provider Name and Address Organization Details Recorded Time Eye Surgery completed Johanny Sanchez MA [facility] 08/04/2014 16:05:55 Tonsillectomy completed Johanny tariq MA [facility] 08/04/2014 16:05:55 Tubal Ligation completed Johanny prater MA [facility] 08/04/2014 16:05:55 Imaging Results None recorded. [...] in Arterial blood by Pulse oximetry Systolic And Diastolic Provider Name and Address Organization Details Last Updated DateTime 3 07191.0 1 g 97 /min 98 % 98 % 140/80 mm[Hg] Digna Huizar MA [facility] 3 12:04:13 Date Recorded Body height Body mass index (BMI) Body weight Oxygen saturation Oxygen saturation in Arterial blood by Pulse oximetry Heart rate Systolic And Diastolic Provider Name and Address Organization Details Last Updated DateTime 3 153.67 cm 26.7 kg/m2 67081.6 2 g 98 % 98 % 83 /min 142/80 mm[Hg] Jordyn Silverman MA [facility] 3 16:53:28 Date Recorded Body height Body mass index (BMI) Body weight Body temperature Oxygen saturation Oxygen saturation in Arterial blood by Pulse oximetry Heart rate Systolic And Diastolic Provider Name and Address Organization Details Last Updated DateTime 1 153.67 cm 26.7 kg/m2 49269.3 4 g 98.4 [degF] 94 % 94 % 80 /min 138/74 mm[Hg] Michael Pal MA [facility] 1 10:56:46 Social History Question Answer Notes LastModified by Organizat ion Details LastModified Time Tobacco Smoking Status Never Smoker Johanny Sanchez MA [facility] [place] [facility] 08/04/2014 16:08:24 What Was The Date Of [...] adjuvanted, trivalent, PF 05/09/2018 completed Not Available [facility] 2021 08:19:33 Influenza, high-dose, quadrivalent, PF 05/06/2020 completed Not Available [facility] 2 08:19:33 Influenza, split virus, quadrivalent, PF 04/01/2015 completed Not Available [facility] 0 02:39:16 Past Encounters Encounter ID Performer Location Encounter Start Date Encounter Closed Date Diagnosis/Indication Diagnosis SNOMED-CT Code Diagnosis ICD10 Code Diagnosis Note [id number] [facility] [address] [place] [address] 08/04/2014 15:28:35 08/04/2014 18:22:06 Hypertensive disorder 67814245 Hyperlipidemia 07856920 Chronic back pain 919777713 Blind right eye 296835679 Dizziness 522277392 [id number] MD Carin Sinclair (Adult Med) [address] [place] [address]7438-117 0 09/15/2014 15:32:06 09/15/2014 17:48:20 Blind right eye 375585961 Hyperlipidemia 50736066 Hypertensive disorder 93250022 Chronic osteoarthritis 90183022 [id number] MD Carin Sinclair (Adult Med) [address] [place] [id number] 0 10/14/2014 16:05:58 10/14/2014 17:30:46 Hypertensive disorder 36550445 Chronic low back pain 482110000 Neck pain 77384637 [id number] MD Carin Sinclair (Adult Med) [address] [place] [address] 88030-867 0 03/23/2015 10:34:11 03/23/2015 11:35:34 Hypertensive disorder 32321974 Chronic low back pain 701331048 Lower abdominal pain 02044478 [id number] MD Carin Sinclair (Adult Med) [address] [place] [address] 99207-468 0 04/01/2015 10:18:00 04/01/2015 14:05:21 Lower abdominal pain 51483082 R10.30 Influenza vaccine needed 6177846836 106 Z28.3 Administra tion of pneumococcal vaccine 49479276 Z23 Essential hypertension 85139708 I10 [id number] MD Carin Sinclair (Adult Med) [address] [place] [address] 74272-488 0 12/04/2015 10:03:57 12/08/2015 09:38:39 Chronic osteoarthritis 95760968 M19.90 Chronic low back pain 27 8739908 M54.5 Essential hypertension 28957079 I10 Hyperlipidemia 68673236 E78.5 Neck pain 93328713 M54.2 Retinal disorder 0554217 9 H35.9 [id number] MD Carin Sinclair (Adult Med) [address] [place] [address] 08711-914 0 01/19/2016 15:02:22 01/19/2016 18:07:41 Chronic osteoarthritis 04814383 M19.90 Hyperlipidemia 33937635 E78.5 Chronic neck pain 411270 5622 107 M54.2 Pain in right knee 83461 40110 60789 M25.561 Pain of hip region 85990 002 M25.552 Hypertensive disorder 38 842883 I10 [id number] MD Carin Sinclair (Adult Med) [address] [place] [address] 33390-054 0 12/26/2017 09:50:25 01/01/2018 14:02:41 Osteoarthritis of hip 572621132 M16.12 medically clear ofr hip surgery. Impacted c erumen of bilateral ears 0937694786 945426 H61.23 ENT referral. [id number] MD Carin Sinclair (Adult Med) [address] [place] [address] 34034-311 0 12/29/2017 09:52:29 12/29/2017 14:26:17 Essential hypertension 90683124 I10 Well controlled , low salt diet. Under the care of r cardiologi st Osteoarthr itis of knee 816552899 M17.11 Had cortisone shot before. Generalize d osteoarthritis 546798914 M15.9 Left hip, will call Dr. Dhruv Avila office for this medical clearnce. Chronic low back pain 27 0033665 M54.5 Degenerati ve lumbar disc, was told not a good surgical candidate Impacted cerumen 7133450 6 H61.23 [id number] MD Carin Sinclair (Adult Med) [address] [place] [address] 90719-581 0 03/19/2019 16:18:58 03/20/2019 12:15:11 Pre-surgery evaluation 267025886 Z01.818 No contraindi cation of right knee operation. Tino Baltazar office will be contacted for this issue. [id number] MD Carin Sinclair (Adult Med) [address] [place] [address] [phone] 0 11/22/2019 09:45:42 11/22/2019 16:40:18 Chronic low back pain 812357610 M54.5 Degenerati ve lumbar disc, was told not a good surgical candidate, she agreed to sign on drug contract and drug test. Chronic ne ck pain for greater than 3 months 7917097910 78661 M54.2 Discussed with patient. [id number] MD Carin Sinclair (Adult Med) [address] [place] [address] 30419-463 0 11/22/2019 11:19:08 11/25/2019 14:36:15 Chronic neck pain 3464551079 107 M54.2 Chronic low back pain 27 6066421 M54.5 Degenerati ve lumbar disc, was told not a good surgical candidate [id number] MD Carin Sinclair (Adult Med) [address] [place] [address] 12472-537 0 11/28/2019 08:09:17 11/29/2019 13:20:31 Sensation of foreign body in throat 7164669216 47054 R09.89 She said that she has growth in her throat. 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 [id number] MD Carin Sinclair (Adult Med) [address] [place] [address] 59553-078 0 01/31/2020 08:02:44 02/04/2020 06:44:27 Donovan's palsy 740568819 G51.0 Discussed with patient, she agreed for thr medication as ordered, and will inform this office this week for the prognosis. She said tht she has full recovery 01-31-2020 . Generalize d osteoarthritis 808246213 M15.9 Left hip, will call Dr. Dhruv Avila office for this medical clearnce. [id number] MD Carin Sinclair (Adult Med) [address] [place] [address] 32319-957 0 04/13/2020 08:39:51 04/14/2020 11:55:32 Thyroid nodule 906384385 E04.1 Pending biopsy. Cervical arthritis 12721 1000 M46.92 Stable. Benign par oxysmal positional vertigo 614864698 H81.13 Discussed with patient. Willing to try medication . [id number] MD Carin Sinclair (Adult Med) [address] [place] [address] 02939-271 0 02/02/2021 10:34:38 02/05/2021 10:15:18 Cataract 107320850 H26.9 Normal PE, ambulating , oriented times 4 , lungs clear to auscultati on, heart regular beat, no murmur, abdomen soft no mass, legs no edema, ROM of neck , shoulders, elbows, hands, hips , knees , feet and lower back are normal. No objection of left eye cataract operation. will contact her ophthalmol ogist office. Benign par oxysmal positional vertigo 697594907 H81.13 Discussed with patient. Willing to try medication . [id number] MD Carin Sinclair (Adult Med) [address] [place] [address] 87101-668 0 10/05/2022 11:50:05 10/06/2022 15:06:40 Essential hypertension 61934467 I10 Well controlled , low salt diet. Under the care of her cardiologi st. On carvedilol 6.23mg bid. Benign par oxysmal positional vertigo 058837270 H81.13 Discussed with patient. Willing to try medication . Just refill meclizine 12.5 mg tid prn. Mitral valve prolapse 40 2103780 I34.1 Under the care of her cardiologi st. SARS-CoV-2 antigen vaccine declined 8343534831 Z28.21 She refused today 10-05-22. Administra tion of diphtheria, pertussis, and tetanus vaccine 587132748 Z23 She declined today 10-05-22. [id number] [facility] [address] [place] [address] 64510-112 0 12/07/2022 16:41:03 12/09/2022 12:42:47 Adverse reaction to drug 48084112 T50.905A She thinks the meclizine migh have cause her taste and lips to be numb, she stopped about 2 weeks ago. But symptoms persists. no difficulty of breathing. no sore throat. , she put hydrogen peroxide in her mouth trying to comfort herself, She agreed to try OTC xylocaine oral lozenges. Benign par oxysmal positional vertigo 422954867 H81.13 Discussed with patient. Willing to try [...] Pereyra Member ID Guarantor Name 10/05/[address] [facility] (MEDICARE REPLACEMENT/ ADVANTAGE - HMO) [id number] Shania Flores Harsha [id number] Shania Flores Harsha 07/07/2023 1 [employer] (MEDICARE REPLACEMENT/ ADVANTAGE - PPO) [id number] Shania Stevensonrett [id number] Shania Flores Harsha 10/05/[address] [facility] (MEDICARE REPLACEMENT/ ADVANTAGE - PPO) [id number] Shania Stevensonrett [id number] Shania Stevensonrett 10/05/[address] [facility] (MEDICARE REPLACEMENT/ ADVANTAGE - HMO) [id number] Perry Junior [id number] Shania Stevensonrett 10/05/2022 3 [place] [id number] Shania Flores Harsha [id number] Shania Flores Harsha 10/05/2022 2 [place] Shania Stevensonrett [id number] Shania Flores Harsha 10/05/2022 2 [place] Shania Flores Harsha [id number] Shania Flores Harsha 10/05/2022 3 [place] [facility] Shania Flores Harsha [id number] Shania Flores Harsha 08/20/2023 PAYMENT PLAN Shania Flores Harsha 10/05/2022 [place]ICARE [place]: [facility] - [facility] - [facility] Shania Flores Harsha [id number] Shania Rodriguezt Notes Date Note Type Note Provider Name and Address Organization Details Recorded Time 01/31/2020 text/html This is phone visit, due to miranda virus pandemic, she understood and agreed, 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 Marlene Carbajal MD Attn: Accounting, [address], [place], [address], [facility] 01/31/2020 12:33:33 04/13/2020 text/html This is phone visit, due to miranda virus pandemic,she understood and and agreed, had thyroid nodule , had biopsies, last was in [facility], pending the pathology report. 2. Chronic neck arthritis, she said is C5-C6. 3. Head sing around while bends her head over, NKDA. 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 Marlene Carbajal MD Attn: Accounting, [address], [place], [address], [facility] 02/02/2021 11:30:00 10/05/2022 text/html Office visit, NKDA. history of hypertension BPPV, and mitral valve prolapse. on meclizine, losartan, carvedilol. Marlene Carbajal MD Attn: Accounting, [address], [place], [address], [place] [facility] 10/05/2022 14:59:56 12/07/2022 text/html Office, acute appointment today. NKDA. She thinks taht she might have reaction to the meclizine. so she stopped. she is also on losartan, carvedilol, and HCTZ from her billing control clerk. Marlene Carbajal MD Attn: Accounting, [address], [place], [address], [place] [facility] 12/07/2022 17:32:44 OBGyn Episode No OBEpisode recorded.
--- OUTSIDE RECORDS SUMMARY | 2024-12-26 08:21 | XMS_ITS | Encounter Summary ---
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 Gender Identity Not on file Sexual Orientation Not on file documented as of this encounter Plan of Treatment Upcoming Encounters Date Type Department Care Team (Late st Contact Info) Description 01/01/2025 2:00 PM CDT Office Visit [facility] Oncology and Hematology - [place] [address] [place] [address] [address] [place] [address] [place] [address] [place] [address] [address] [place] [address] documented as of this encounter Visit Diagnoses Not on filedocumented in this encounter Care Teams Creative Designer Relationship Specialty Start Date End Date Chico Gates MD [address] [place] [address] PCP - General Family Practice 07/24/23 documented as of this encounter
--- OUTSIDE RECORDS SUMMARY | 2024-12-26 08:21 | XMS_ITS | Continuity of Care Document ---
Author Organization [facility] Address [address] [place] [address] [address] [place] [address] Phone Care Team Providers Care Expert Witness Name Role Phone Marleny Mena Unavailable Unavailable Advance Directives Directive Yes / No Effective Date File Name No Information Encounters Encounter Description Practice Location Reason(s) For Visit Diagnoses Date Provider Providers Copied on Encounter [facility], [address], [place], [place], [id number], [place] tel:[phone] [facility] No Information [address] , [address], [place], [address], [place]. tel:[phone] Family History Family Member Type Diagnosis Age At Onset No Information Payers Payer name Insurance type Covered libertarian ID Authoriza tion(s) No Information Social History [...]
[2024-12-26 08:35] LABS: Hematocrit 40.1 % (37.0-47.0); Hemoglobin 13.5 g/dL (12.0-15.0); Immature Granulocyte Percent A 0.2 % (0-0.5); Lymphocytes Absolute Auto 1.93 K/mm3 (0.9-3.2); Mean Corpuscular HGB Conc 33.7 g/dl (32-36); Mean Corpuscular Hemoglobin 30.3 pg (26-34); Mean Corpuscular Volume 89.9 fl (80-100); Nucleated Red Blood Cells Absolute Auto 0.000 K/mm3 (0.0-0.012); Nucleated Red Blood Cells Perc 0.0 % (0.0-0.2); Platelet Count Result 202 k/mm3 (150-375); Red Blood Count 4.46 M/mm3 (4.2-5.4); White Blood Count 4.8 K/mm3 (4.5-10.0)
[2024-12-26 08:57] LABS: Alanine Aminotransferase 14 U/L (6-35); Albumin Level 3.9 g/dL (3.5-5.1); Alkaline Phosphatase 84 U/L (38-126); Anion Gap 8 mmol/L (4-12); Aspartate Amino Transferase 37 U/L (14-36); Bilirubin,Total 0.5 mg/dL (0.2-1.3); Blood Urea Nitrogen 11 mg/dL (7-17); Calcium 9.5 mg/dL (8.4-10.2); Carbon Dioxide 24 mmol/L (22-30); Chloride 109 mmol/L (98-107); Estimated Glomerular Filt Rate > 60; Glucose 98 mg/dL (65-110); Potassium 3.3 mmol/L (3.4-5.0); Sodium 141 mmol/L (137-145); Total Protein 7.2 g/dL (6.3-8.2)
[2024-12-26 09:27] LABS: Carcinoembryonic Antigen 6.8 ng/mL (0.0-3.0)
== END 2024-12-26 08:18 | disposition home or self-care (01) ==
PROVIDERS: PCP Family Medicine; Visit Provider Internal Medicine Hematology & Oncology
DX: C18.9 Malignant neoplasm of colon, unspecified (principal)
CPT/HCPCS: 36415; 80053; 82378; 85025

== ENCOUNTER 2025-04-28 15:04 | Outpatient (CLI) | payer MEDICARE, SELFPAY ==
--- OUTSIDE RECORDS SUMMARY | 2002-01-15 10:00 | XMS_ITS | Continuity of Care Document ---
Author Organization [facility] Address [id number] [place] [address] [address] [place] [address] Phone Care Team Providers Care Muff Winder Name Role Phone Marleny Mena Unavailable Unavailable Advance Directives Directive Yes / No Effective Date File Name No Information Encounters Encounter Description Practice Location Reason(s) For Visit Diagnoses Date Provider Providers Copied on Encounter [facility], [address] [employer] [address], [place], [place], [id number], [place] tel:[phone] [facility] No Information [address] , [address], [place], [address], [place]. tel:[phone] Family History Family Member Type Diagnosis Age At Onset No Information Payers Payer name Insurance type Covered green party ID Authoriza tion(s) No Information Social History Type Description Quantity Date Captured Comments Sex Female Smoking Status No Information Chief Complaint And Reason For Visit No Information Reason For Referral Reason For Referral No Information History Of Present Illness Encounter Date Complaint History Of Prese nt Illness No Information Functional Status Date Functional Assessmen t No Information Instructions Date Instruction Additional Infor mation No Information Assessments Type Assessment Date No Information Patient Care Teams Name Effective Dates (start - stop) Status Members No Information
[2025-04-28 15:19] LABS: Hematocrit 44.0 % (37.0-47.0); Hemoglobin 14.4 g/dL (12.0-15.0); Immature Granulocyte Percent A 0.2 % (0-0.5); Lymphocytes Absolute Auto 2.12 K/mm3 (0.9-3.2); Mean Corpuscular HGB Conc 32.7 g/dl (32-36); Mean Corpuscular Hemoglobin 30.1 pg (26-34); Mean Corpuscular Volume 91.9 fl (80-100); Nucleated Red Blood Cells Absolute Auto 0.000 K/mm3 (0.0-0.012); Nucleated Red Blood Cells Perc 0.0 % (0.0-0.2); Platelet Count Result 206 k/mm3 (150-375); Red Blood Count 4.79 M/mm3 (4.2-5.4); White Blood Count 6.2 K/mm3 (4.5-10.0)
--- OUTSIDE RECORDS SUMMARY | 2025-04-28 15:25 | XMS_ITS | Clinical Summary ---
Author Organization [facility] Address [address] [facility] [place] [address] Care Team Providers Care Lunchroom Aide Name Role Phone Chico Gates MD Primary Care Provider [phone] Allergies Active Allergy Reactions Criticality Noted Date Comments Codeine Other (See Comments) 07/24/2023 other Medications timoloL maleate (TIMOPTIC) 0.25% solution 1 Drop 2 times daily. Active tiZANidine (ZANAFLEX) 2 mg Capsule Take 2 mg by mouth. 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 Gender Identity Not on file Sexual Orientation Not on file Last Filed Vital Signs Vital Sign Reading Time Taken Comments Blood Pressure 167/93 01/01/2025 3:00 PM CDT Pulse 77 01/01/2025 2:14 PM CDT Temperature 36.4 C (97.5 F) 01/01/2025 2:14 PM CDT Respiratory Rate 15 01/01/2025 2:14 PM CDT Oxygen Saturation 96% 01/01/2025 2:14 PM CDT Inhaled Oxygen Concentration - - Weight 64 kg (141 lb 3.2 oz) 01/01/2025 2:14 PM CDT Height 156.2 cm (5' 1.5) 07/24/2023 9:51 AM PERCUSSION INSTRUMENT REPAIRER Body Mass Index 26.25 07/24/2023 9:51 AM PERCUSSION INSTRUMENT REPAIRER Plan of Treatment Upcoming Encounters Date Type Department Care Team (Late st Contact Info) Description 05/02/2025 10:00 AM PERCUSSION INSTRUMENT REPAIRER Office Visit [facility] Oncology and Hematology - [place] [address] [facility] [address] [place] [address] Anirudh Adair MD [address] [facility] [address] [place] [address] Health Maintenance Due Date Last Done Comments DTAP/TDAP/TD VACCINES (1 - Tdap) 1959 PNEUMOCOCCAL VACCINE 50+ YEA RS (1 of 1 - PCV) 1990 ZOSTER VACCINE (1 of 2) 1990 OSTEOPOROSIS SCREENING 2005 RSV VACCINE (60+ or ) (1 - 1-dose 75+ series) 2015 Medicare [place]) Prev entative Visit/Annual Wellness Visit 06/26/2024 INFLUENZA VACCINE (#1) 2025 0, 05/09/2018, 04/01/2015 Insurance [employer] PPO [facility] Care Teams Lunchroom Aide Relationship Specialty Start Date End Date Chico Gates MD [address] [place] [address] PCP - General Family Practice 07/24/23
--- OUTSIDE RECORDS SUMMARY | 2025-04-28 15:25 | XMS_ITS | Encounter Summary ---
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 Gender Identity Not on file Sexual Orientation Not on file documented as of this encounter Plan of Treatment Upcoming Encounters Date Type Department Care Team (Late st Contact Info) Description 05/02/2025 10:00 AM SOFTWARE DEVELOPER MID LEVEL Office Visit [facility] Oncology and Hematology - [address] [place] [address] Anirudh Adair MD [address] [place] [address] documented as of this encounter Visit Diagnoses Not on filedocumented in this encounter Care Teams Summer Nanny Relationship Specialty Start Date End Date Chico Gates MD [address] [place] [address] PCP - General Family Practice 07/24/23 documented as of this encounter
--- OUTSIDE RECORDS SUMMARY | 2025-04-28 15:25 | XMS_ITS | Clinical Summary ---
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
[2025-04-28 16:33] LABS: Alanine Aminotransferase 28 U/L (6-35); Albumin Level 4.4 g/dL (3.5-5.1); Alkaline Phosphatase 128 U/L (38-126); Anion Gap 8 mmol/L (4-12); Aspartate Amino Transferase 47 U/L (14-36); Bilirubin,Total 0.5 mg/dL (0.2-1.3); Blood Urea Nitrogen 18 mg/dL (7-17); Calcium 9.8 mg/dL (8.4-10.2); Carbon Dioxide 27 mmol/L (22-30); Chloride 105 mmol/L (98-107); Estimated Glomerular Filt Rate 55; Glucose 92 mg/dL (65-110); Potassium 3.4 mmol/L (3.4-5.0); Sodium 140 mmol/L (137-145); Total Protein 7.9 g/dL (6.3-8.2)
[2025-04-28 17:10] LABS: Carcinoembryonic Antigen 9.4 ng/mL (0.0-3.0)
== END 2025-04-28 15:05 | disposition home or self-care (01) ==
LOC: ANHLAB 15:04
PROVIDERS: PCP Family Medicine; Visit Provider Internal Medicine Hematology & Oncology
DX: C18.9 Malignant neoplasm of colon, unspecified (principal)
CPT/HCPCS: 36415; 80053; 82378; 85025

== ENCOUNTER 2025-05-15 12:00 | Outpatient (CLI) | payer MEDICARE, SELFPAY ==
--- NOTE | ~2025-05-15 | PE_ITS ---
EXAMINATION: PET skull to mid thigh DATE: 05/15/2025 14:44 INDICATION: Malignant neoplasm of the colon TECHNIQUE: Blood glucose level was 77 mg/dL. 10.065 mCi of 18-fluorodeoxyglucose (18-FDG) was administered i.v. Low dose computed tomography (CT) images were acquired from the base of the brain to the proximal thighs for attenuation correction and anatomic localization. Positron emission tomography (PET) images were acquired in the same distribution beginning 66 minutes after injection. Images including fused PET/CT images were reconstructed in axial, coronal, and sagittal planes. Automated exposure control technique was employed. The dose- length product was 836.08mGy-cm. COMPARISON: PET/CT dated 09/05/2024 FINDINGS: Head/neck: No pathologically enlarged or abnormally FDG avid cervical lymphadenopathy. Chest: Mild bibasilar atelectasis. Calcified right lower lobe nodule consistent with old granulomatous disease. No suspicious pulmonary nodules, pneumonia or pleural effusion. Heart size is normal. Atherosclerotic coronary artery calcific lesions aortic valve calcific lesion. Thoracic aorta is normal in caliber. No pathologically enlarged or FDG avid thoracic lymphadenopathy. Abdomen/pelvis/proximal thighs: Physiologic renal accumulation and excretion of FDG activity in the kidneys, bladder, along portions of ureters and urethra. Normal degree and heterogenous pattern of increased uptake throughout the liver without radiologic correlate or dominant FDG avid lesion. The gallbladder, pancreas, spleen and bilateral adrenal glands are normal. Postoperative change of prior right hemicolectomy with ileocolic anastomosis in the right abdomen. The uterus is not identified and has likely been surgically resected. Interval right spigelian hernia repair. Mild uptake scattered throughout the bowels without radiologic correlate, also likely physiologic. No other abnormal foci of increased FDG uptake or pathologically enlarged lymphadenopathy in the abdomen, pelvis or proximal thighs. Musculoskeletal: S-shaped scoliosis of the thoracic and lumbar spine with severe spondylosis. Left total hip arthroplasty. Small focus of prominent likely extravasated activity at the site of injection at the right hand. Additional small focus of likely skin contamination at the inferior aspect of the gluteal cleft. No suspicious lytic, blastic or abnormally FDG avid bone lesions. IMPRESSION: 1. No abnormal FDG avid lesions suspicious for metastatic disease. Reviewed, dictated and finalized at location A. ER HAND
--- OUTSIDE RECORDS SUMMARY | 2025-05-15 14:33 | XMS_ITS | Clinical Summary ---
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
== END 2025-05-15 12:01 | disposition home or self-care (01) ==
PROVIDERS: PCP Family Medicine; Visit Provider Internal Medicine Hematology & Oncology
DX: C18.7 Malignant neoplasm of sigmoid colon (principal)
CPT/HCPCS: 78815; A9552